=== PATIENT | female | born 1965 | race Caucasian/White ===

== ENCOUNTER 2025-04-05 18:03 | Emergency (ER) | payer OTHER, SELFPAY ==
[2025-04-05 19:07] VITALS: BP 147/86; PULSE 104; RESP 16; TEMP 37.3; O2SAT 99; BMI 22.7
--- NOTE | 2025-04-05 21:22 | ED.GENADULT ---
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 Patient reports that she was at work today at around 330 when she injured her back.. She was kneeling and pulling up on a cord and felt a pop in her back with intense pain. She has been icing her back. No ieat-clz-yuyacwh meds at home. No history of back problems. She does have a history of a C5-6 cervical fusion but no history of low back problems. Per her [facility] medical record she does have a history of coronary disease, Cory's thyroiditis, gastric bypass (Evan-en-Y), breast cancer, anxiety, depression, seasonal affective disorder. Current meds include Cymbalta, iron, fluticasone, Synthroid, lorazepam, Singulair, multivitamin, spironolactone, Zyrtec, calcium/vitamin B, Lipitor. She is not anticoagulated. She was at work this afternoon about 330. She was bending down pulling out some cords from underneath the table and apparently felt a very sudden severe usual for pain felt and heard a ?pop, ?in the midline of her low back. Ever since then she has been having bad pain. The pain is worse when she stands up and better when she lays down. The pain is located in her mid low back and sometimes radiates around to her abdomen. It does not radiate down her legs. No numbness or weakness in her legs or feet. She has been able to urinate normally since the onset of pain. She was not able to take any [id number] pain medications at home because she came straight here to the ER. No history of low back problems. No history of spine Mets. Distant history of breast cancer that is thought to be in remission. No diabetes or immunosuppression. Related Data Home Medications ?Medication ?Instructions ?Recorded ?Confirmed atorvastatin 20 mg tablet 20 mg PO DAILY 04/05/25 04/05/25 bimatoprost 0.03 % drops with 1 drp topical QPM 04/05/25 04/05/25 applicator, eyelash base bupropion HCl 100 mg tablet,12 hr 100 mg PO BID 04/05/25 04/05/25 sustained-release dextroamphetamine-amphetamine 20 1 tab PO BID 04/05/25 04/05/25 mg tablet duloxetine 30 mg capsule,delayed mg PO 04/05/25 release duloxetine 60 mg capsule,delayed mg PO 04/05/25 release methocarbamol 750 mg tablet 750 mg PO Q6H PRN muscle spasm 04/05/25 04/05/25 montelukast 10 mg tablet 10 mg PO DAILY 04/05/25 04/05/25 spironolactone 25 mg tablet 25 mg PO BID 04/05/25 04/05/25 Allergies Allergy/AdvReac Type Severity Reaction Status Date / Time azithromycin Allergy Nausea Verified 04/05/25 19:12 levofloxacin (From Levaquin) Allergy Muscle Pain Verified 04/05/25 19:12 Sulfa (Sulfonamide Allergy rash Verified 04/05/25 19:12 Antibiotics) [facility] Social History Smoking Status: Never smoker Do you use any of these nicotine containing products: None Second hand tobacco smoke exposure: No How often do you have a drink containing alcohol: never How often do you have six or more drinks on one occasion: Never AUDIT-C Alcohol total score: 0 Non-prescribed substance use: denies use service: No Exam Narrative: Exam Narrative: Constitutional: Appears well-developed and well-nourished. Alert. Conversant but quite uncomfortable appearing. HENT: Head: Atraumatic. Nose: Nose normal. Mouth/Throat: Oral mucosa is clear and moist. no trismus. Pharynx normal. Tonsils symmetric. No tonsillar enlargement, erythema, or exudate. Eyes: Conjunctivae normal. EOM normal. Pupils equal, round, and reactive to light. No scleral icterus. Neck: Normal range of motion. Neck supple. No tracheal deviation present. Cardiovascular: Normal rate, regular rhythm. No gallop. No friction rub. No murmur heard. Symmetric radial artery pulses Pulmonary/Chest: Effort normal. No stridor. No respiratory distress. No wheezes. No rales. No rhonchi . No tenderness. Abdominal: Soft. No distension. No mass. No tenderness. No rebound. No guarding. Musculoskeletal: A tender on the lumbar spine from the bottom of the rib cage all the way down to her lower lumbar spine and involving her sacrum. Seems to be most tender in the upper lumbar spine. No definite step-off. No rash. No bruising. Pelvis is stable. RUE: Normal range of motion. No tenderness. No deformity LUE: Normal range of motion. No tenderness. No deformity RLE: Normal range of motion, but somewhat limited because flexing her knees and hips exacerbates her back pain.. No edema. No tenderness. No deformity LLE: Normal range of motion, but limited because flexing her knee and hip exacerbates her back pain.. No edema. No tenderness. No deformity Neurological: Alert and oriented to person, place, and time. Normal strength. CN II-VII intact. No sensory deficit. GCS eye subscore is 4. GCS verbal subscore is 5. GCS motor subscore is 6. Normal coordination Sensory: Normal light touch sensation bilaterally on the anteromedial thigh (L3), medial malleolus (L4), dorsal first web space (L5), lateral malleolus (S1). Strength: 5/5 strength hip flexors (L3) on the right and left 5/5 strength in the quadriceps (L4) on the right and left 5/5 strength in the tibialis anterior 5/5 strength in the EHL (L5) on the right and left 5/5 strength in the gastrocnemius (S1) on the right and left 5/5 strength in the hamstring on the right and left DTRs: symmetric in the patella (2/4) , but when she jerks with her patellar reflex her back pain flares up. Negative straight leg raise bilaterally. Not able to assess gait because of pain. Skin: Skin is warm and dry. No rash noted. No pallor. Normal capillary refill. Psychiatric: Normal mood. Normal affect other than discomfort. Const: Vital Signs, click to edit/add: Vital Signs - 24 hr 04/05/25 19:07 Temperature 99.1 F Pulse Rate [Pulse Oximeter] 104 H Respiratory Rate 16 Blood Pressure [Ri ght Upper Arm] 147/86 H Pulse Oximetry 99 Oxygen Delivery Me thod Room Air Course Vital Signs Vital signs: Initial Vital Signs Temperature 99.1 F 04/05/25 19:07 Temperature Source Temporal Artery Scan 04/05/25 19:07 Pulse Rate 104 H 04/05/25 19:07 Respiratory Rate 16 04/05/25 19:07 Blood Pressure 147/86 H 04/05/25 19:07 Blood Pressure Mean 106 H 04/05/25 19:07 Blood Pressure Position Standing 04/05/25 19:07 Pulse Oximetry 99 04/05/25 19:07 Oxygen Delivery Method Room Air 04/05/25 19:07 Vital Signs Temperature 99.1 F 04/05/25 19:07 Pulse Rate 104 H 04/05/25 19:07 Respiratory Rate 16 04/05/25 19:07 Blood Pressure 147/86 H 04/05/25 19:07 Pulse Oximetry 99 04/05/25 19:07 Oxygen Delivery Method Room Air 04/05/25 19:07 Temperature 99.1 F 04/05/25 19:07 Pulse Rate 104 H 04/05/25 19:07 Respiratory Rate 16 04/05/25 19:07 Blood Pressure 147/86 H 04/05/25 19:07 Pulse Oximetry 99 04/05/25 19:07 Oxygen Delivery Method Room Air 04/05/25 19:07 Medications Administered Medications: Generic Name Dose Route Start Last Admin Trade Name Frekirill PRN Reason Stop Dose Admin Hydromorphone HCl 0.5 mg 04/05/25 21:32 04/05/25 21:56 Hydromorphone 0.5 Mg/0.5 Ml Inj IVP 0.5 mg Q1H PRN Administration Pain Discontinued Medications Generic Name Dose Route Start Last Admin Trade Name Freq PRN Reason Stop Dose Admin Cyclobenzaprine HCl 5 mg 04/06/25 00:01 04/06/25 00:23 Cyclobenzaprine Hcl 10 Mg Tablet PO 04/06/25 00:02 5 mg ONCE ONE Administration Diazepam 2.5 mg 04/05/25 21:32 04/05/25 21:56 Diazepam 5 Mg/Ml Inj IV 04/05/25 21:33 2.5 mg ONCE ONE Administration Ketorolac Tromethamine 15 mg 04/05/25 21:32 04/05/25 21:56 Ketorolac 15 Mg/Ml Inj IVP 04/05/25 21:33 15 mg ONCE ONE Administration Ondansetron HCl 4 mg 04/05/25 21:32 04/05/25 21:56 Ondansetron 2 Mg/Ml Inj IVP 04/05/25 21:33 4 mg ONCE ONE Administration Ondansetron HCl 4 mg 04/06/25 00:01 04/06/25 00:23 Ondansetron Odt 4 Mg Tab PO 04/06/25 00:02 4 mg ONCE ONE Administration Oxycodone HCl 10 mg 04/06/25 00:01 04/06/25 00:23 Oxycodone 5 Mg Tablet PO 04/06/25 00:02 10 mg ONCE ONE Administration Medical Decision Making MDM Narrative Medical decision making narrative: This patient presented with back pain. Broad differential considered. The patient did not sustain any trauma, so overall low likelihood for fracture.. No red flag symptoms to suggest CT and/or MRI is indicated at this point. The patient has not had a fever, saddle/perineal anesthesia, bilateral foot numbness, or bowel or bladder dysfunction. There is no clinical evidence of cauda equina syndrome, discitis, spinal/epidural space hematoma or epidural abscess. The neurological exam is normal and the patient's symptoms seem consistent with a musculoskeletal issues . However given her significant severe debilitating pain, we did feel that some imaging was indicated. MRI is not available here in [place] this evening. Therefore we elected to go ahead with lumbar spine CT. Also pelvis CT case there was some pelvic insufficiency fracture contributing to her low back pain. L-spine CT came back revealing an acute to subacute lumbar 1 compression fracture with 30% loss of vertebral body height. I suspect this is probably the cause for her acute onset of back pain. . Pain has improved with interventions in the emergency department and she has novel able to rest more comfortably in bed but she is still having a lot of pain whenever she tries to get up to ambulate.. She is going to require admission for pain control. Transfer is indicated to a facility with Ortho Spine/Neurosurgery coverage. She will need spine consult to determine whether not this fracture is operative and determine a plan of care and family. Discussed this with the patient and they are in agreement. Here in the ER the patient has received Toradol, 2 doses of Dilaudid, Valium, and 10 mg oxycodone and still having significant pain. She substantially better than a compared to arrival but still not able to get out of bed or ambulate. Discussed with hospitalist from [facility], Dr. Monroy. He accepts the patient in transfer for admission to the hospitalist service to an ortho spine bed. He will arrange consult ink services which arrives Discussed with my overnight partner, Dr. Villegas who graciously agreed to monitor this patient's course in the ER. Discharge Plan Discharge Clinical Impression: Closed compression fracture of L1 vertebra Patient Disposition: Xfer Other Prescriptions: No Action atorvastatin 20 mg tablet 20 mg PO DAILY spironolactone 25 mg tablet 25 mg PO BID bupropion HCl 100 mg tablet sustained-release 12 hr 100 mg PO BID methocarbamol 750 mg tablet 750 mg PO Q6H PRN (Reason: muscle spasm) dextroamphetamine-amphetamine 20 mg tablet 1 tab PO BID montelukast 10 mg tablet 10 mg PO DAILY duloxetine 30 mg capsule,delayed release(DR/EC) PO duloxetine 60 mg capsule,delayed release(DR/EC) PO bimatoprost 0.03 % drops with applicator 1 drp TOPICAL QPM Stand Alone Forms: [facility] Info Instructions
--- NOTE | 2025-04-05 21:32 | CRLHL7_ITS ---
For Patients: As a result of the Cures Act, medical imaging exams and procedure reports are released immediately into your electronic medical record. You may view this report before your referring provider. If you have questions, please contact your health care provider. INDICATION: Right hip pain. TECHNIQUE: CT pelvis without contrast. COMPARISON: CT abdomen and pelvis 11/12/2022. FINDINGS: No acute fracture, dislocation, or suspicious osseous lesion. Mild degenerative changes of the bilateral hips significant joint space narrowing. Degenerative changes at the left greater than right sacroiliac joints. Mild osteopenia. No significant hip joint effusion. No suspicious soft tissue mass or fluid collection. Visualized intrapelvic contents demonstrate no acute abnormality. There are atherosclerotic calcifications. IMPRESSION: No acute abnormality. Please note that all CT scans at this facility use dose modulation, iterative reconstruction, and/or weight-based dosing when appropriate to reduce radiation dose to as low as reasonably achievable. Dictated by Rodolfo Earl MD @ 04/05/2025 10:22:21 PM (Electronically Signed)
--- NOTE | 2025-04-05 21:32 | CRLHL7_ITS ---
For Patients: As a result of the Century Cures Act, medical imaging exams and procedure reports are released immediately into your electronic medical record. You may view this report before your referring provider. If you have questions, please contact your health care provider. INDICATION: Low back pain. TECHNIQUE: CT lumbar spine without contrast. COMPARISON: CT abdomen pelvis 11/12/2022. FINDINGS: Acute to subacute appearing compression fracture deformity of the L1 superior endplate with approximately 30 percent loss of vertebral body height and no significant vertebral body retropulsion. No significant canal stenosis at this level. The remainder of the lumbar vertebral bodies maintain their normal heights with preserved lordosis. Mild multilevel spondylosis is evident. No advanced disc space height loss. Limited evaluation of intra-abdominal/pelvic contents demonstrates no acute abnormality. There are atherosclerotic calcifications. Paraspinal soft tissues are grossly within normal limits. IMPRESSION: Acute to subacute appearing L1 superior endplate compression fracture with approximately 30 percent loss of vertebral body height and no significant vertebral body retropulsion. Please note that all CT scans at this facility use dose modulation, iterative reconstruction, and/or weight-based dosing when appropriate to reduce radiation dose to as low as reasonably achievable. Dictated by Rodolfo Earl MD @ 04/05/2025 10:28:23 PM (Electronically Signed)
[2025-04-05] MEDS: diazePAM 5 MG/ML inj 2.5 MG IV (21:56)
[2025-04-05] MEDS: ONDANSETRON 2 MG/ML inj 4 MG IVP (21:56)
--- OUTSIDE RECORDS SUMMARY | 2025-04-05 22:07 | XMS_ITS | Encounter Summary ---
Author Organization [facility] Address [address] [place] [address]. [place] [address] Care Team Providers Care Doctor Of Chiropractic Name Role Phone Shabana Phelan Christelle HUERTA Unavailable [phone] Raquel Hernandez MD Primary Care Provider Raquel Hernandez MD Unavailable Leia Moreno DO Primary Care Provide r Cb Hernández MD Unavailable Unavail able Cb Hernández MD Unavailable Unavail able Leia Moreno DO Unavailable Toro Arnold MD Unavailable Toro Arnold MD Unavailable [phone] Clarke Gandhi MD Unavailable [phone] Reason for Visit * Reason Onset Date Comments Refill Request 07/19/2022 DULoxetine (CYMB NAE) 30 MG capsule Encounter Details Date Type Department Care Team (Late st Contact Info) Description 07/19/2022 Refill [facility] [address] [place] [address] [place] [address] [place] [address] Refill Request (DULoxetine (CYMBALTA) 30 MG capsule) Social History Tobacco Use Types Packs/Day Years Used Date Smoking Tobacco: Never Smokeless Tobacco: Never Alcohol Use Standard Drinks/Week Comments Yes 0 (1 standard drink = 0.6 oz pur e alcohol) rarely Social Connection and Isolat ion Panel [NHANES] Answer Date Recorded In a typical week, how many times do you talk on the phone with family, friends, or neighbors? Twice a week 05/07/2021 How often do you get togethe r with friends or relatives? More than three times a week 05/07/2021 How often do you attend [facility] or mosque services? More than 4 times per year 05/07/2021 Do you belong to any clubs o r organizations such as zoroastrianism groups, unions, fraternal or athletic groups, or school groups? Yes 05/07/2021 Attends Club or Organization Meetings Not on brandie e 05/07/2021 Are you , , di vorced, , never , or living with a partner? 05/07/2021 AUDIT-C Answer Date Recorded Q1: How often do you have a drink containing alc ohol? Monthly or less 05/07/2021 Q2: How many drinks containi ng alcohol do you have on a typical day when you are drinking? 1 or 2 05/07/2021 Q3: How often do you have si x or more drinks on one occasion? Never 05/07/2021 Overall Financial Resource Strain (CARDIA) Answe r Date Recorded How hard is it for you to pa y for the very basics like food, housing, medical care, and heating? Not hard at all 05/07/2021 PHQ-2 Answer Date Recorded PHQ-2 Score 0 01/02/2022 [facility] - Occupational Stress Questionnaire Answer Date Recorded Do you feel stress - tense, restless, nervous, or anxious, or unable to sleep at night because your mind is troubled all the time - these days? To some extent 05/07/2021 Exercise Vital Sign Answer Date Recorde d On average, how many days pe r week do you engage in moderate to strenuous exercise (like a brisk walk)? 3 days 05/07/2021 On average, how many minutes do you engage in exercise at this level? 40 min 05/07/2021 Hunger Vital Sign Answer Date Recorded Within the past 12 months, y ou worried that your food would run out before you got the money to buy more. Never true 05/07/20 21 Within the past 12 months, t he food you bought just didn't last and you didn't have money to get more. Never true 05/07/2021 PRAPARE - Transportation Answer Date Re corded In the past 12 months, has l ack of transportation kept you from medical appointments or from getting medications? No 04/16 In the past 12 months, has l ack of transportation kept you from meetings, work, or from getting things needed for daily living? No 05/07/2021 Housing Stability Vital Sign Answer Jeb e Recorded In the last 12 months, was t here a time when you were not able to pay the mortgage or rent on time? No 05/07/2021 In the last 12 months, how many places have you lived? 1 05/07/2021 In the last 12 months, was t here a time when you did not have a steady place to sleep or slept in a nursing home (including now)? 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 Juana Villeda RN STOCK AUCTIONEER documented in this encounter Plan of Treatment Upcoming Encounters Date Type Department Care Team (Late st Contact Info) Description 04/21/2025 10:40 AM LIVESTOCK AUCTIONEER Office Visit [facility] [address] [place] [address] Leia Moreno DO [address] [place], [place] [id number] documented as of this encounter Visit Diagnoses Diagnosis MORRO (generalized anxiety disorder) Generalized anxiety disorder documented in this encounter Additional Health Concerns Infection Onset Date Last Indicated 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 02/05/2018 05/10/2024 9:57 AM LIVESTOCK AUCTIONEER Assessment Noted Time PHQ-9 Depression Total Score: 6 12/28/19 22 3:16 PM CDT documented as of this encounter Care Teams Doctor Of Chiropractic Relationship Specialty [place] [address] [place] [address] PCP - General Family Medicine 11/06/20 12/29/22 Leia Moreno DO [address] [facility] [address] [place] [address] PCP - General Internal Medicine 12/30/22 Shabana Phelan NP [facility] [address] [place] [address] Nurse Practitioner Nurse Practitioner Psych/Mental Health 04/10/17 [place] [address] [place] [address] Assigned PCP 11/08/20 03/13/23 Cb Hernández MD Assigned PCP 03/14/23 04/03/23 Cb Hernández MD Assigned PCP 04/11/23 04/17/23 Leia Moreno DO [address] [facility] [address] [place] [address] Assigned PCP 04/25/23 Toro Arnold MD [address] [place] [address] Surgeon Surgery 04/18/24 Toro Arnold MD [address] [place] [address] Assigned Surgical Provider 05/07/24 Clarke Gandhi MD [address] [address] Assigned Musculoskeletal Provider 08/07/24 documented as of this encounter
--- OUTSIDE RECORDS SUMMARY | 2025-04-05 22:08 | XMS_ITS | Encounter Summary ---
Author Organization [facility] Address [address] [place] [address] Care Team Providers Care Rn Or Lvn Name Role Phone TapanShabana Christelle HUERTA Unavailable [phone] Raquel Hernandez MD Primary Care Provider Raquel Hernandez MD Unavailable Leia Moreno DO Primary Care Provide r Cb Hernández MD Unavailable Unavail able Cb Hernández MD Unavailable Unavail able Leia Moreno DO Unavailable [phone] Toro Arnold MD Unavailable [phone] Toro Arnold MD Unavailable [phone] Clarke Gandhi MD Unavailable [phone] Encounter Details Date Type Department Care Team (Late st Contact Info) Description 06/25/2022 [facility] Medical Advice [facility] [id number] [place] [id number] Imelda Mancini MA Social History Tobacco Use Types Packs/Day Years [...] week 05/07/2021 How often do you attend chur or orthodox services? More than 4 times per year 05/07/2021 Do you belong to any clubs o r organizations such as caodaism groups, unions, fraternal or athletic groups, or [...] Answer Date Recorded PHQ-2 Score 0 01/02/2022 [facility] - Occupational Stress Questionnaire Answer Date Recorded [...] place to sleep or slept in a senior care (including now)? 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 [address] [facility] [address] [place] [phone] Leia Moreno DO [address] [facility] [address] [place] [address] documented as of this encounter Visit Diagnoses Not on filedocumented in this encounter Additional Health Concerns Infection Onset Date Last Indicated 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 02/05/2018 05/10/2024 9:57 AM PACKING ROOM WORKER Assessment Noted Time PHQ-9 Depression Total Score: 6 12/28/19 22 3:16 PM CDT documented as of this encounter Care Teams Rn Or Lvn Relationship Specialty [place] [address] [place] [address] PCP - General Family Medicine 11/06/20 12/29/22 Leia Moreno DO [address] [place] [address] PCP - General Internal Medicine 12/30/22 Shabana Phelan NP [facility] [address] [place] [address] Nurse Practitioner Nurse Practitioner Psych/Mental Health 04/10/17 [place] [address] [place] [address] Assigned PCP 11/08/20 03/13/23 Cb Hernández MD Assigned PCP 03/14/23 04/03/23 Cb Hernández MD Assigned PCP 04/11/23 04/17/23 Leia Moreno DO [address] [place] [address] Assigned PCP 04/25/23 Toro Arnold MD [address] [place] [address] Surgeon Surgery 04/18/24 Toro Arnold MD [address] [place] [address] Assigned Surgical Provider 05/07/24 Clarke Gandhi MD [facility] [place] [address] Assigned Musculoskeletal Provider 08/07/24 documented as of this encounter
--- OUTSIDE RECORDS SUMMARY | 2025-04-05 22:08 | XMS_ITS | Encounter Summary ---
Author Organization [place] Address [address] [place] [address] Care Team Providers Care Wrapper Opener Name Role Phone Samm Ramos MD Primary Care Provider Sweetie Burnett MD Primary Care Provider TapanShabana casanova NP Unavailable [phone] Sweetie Burnett MD Unavailable [phone] Sweetie Burnett MD Unavailable [phone] Nikkie Jacques [facility] Unavailable [phone] Nery Matos [facility] Unavailable Stewart Alfaro MD Unavailable Miranda Liao MD Unavailable Unavailable Raquel Hernandez MD Primary Care Provider Vlad Walsh MD Unavailable Raquel Hernandez MD Unavailable David Chu PA-C Unavailable [phone] Leia Moreno DO Primary Care Provide r Cb Hernández MD Unavailable Unavail able Cb Hernández MD Unavailable Unavail able Leia Moreno DO Unavailable Toro Arnold MD Unavailable Toro Arnold MD Unavailable [phone] Clarke Gandhi MD Unavailable [phone] Encounter Details Date Type Department Care Team (Late st Contact Info) Description 07/22/2013 MyC Medical Advice [facility] [address] [place] [phone] Samm Ramos MD XXX RESIGNED XXX [address] [place] [address] Social History Tobacco Use Types Packs/Day Years Used Date Smoking Tobacco: Never Smokeless Tobacco: Never Alcohol Use Standard Drinks/Week Comments Yes 0 (1 standard drink = 0.6 oz pur e alcohol) rare Comments No Sex and Gender Information Value Date Recorded Sex Assigned at Female 06/28/2018 5:01 AM DIRECTOR OF MECHANICAL ENGINEERING Legal Sex Female 3:40 AM DIRECTOR OF MECHANICAL ENGINEERING Gender Identity Female 05/25/2018 3:53 PM DIRECTOR OF MECHANICAL ENGINEERING Sexual Orientation Straight 04/24/2021 4: 48 PM DIRECTOR OF MECHANICAL ENGINEERING 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 Pt would like to start cholesterol reducing medication instead of retesting, due to strong family history. CTOR OF MECHANICAL ENGINEERING documented in this encounter Plan of Treatment Upcoming Encounters Date Type Department Care Team (Late st Contact Info) Description 04/21/2025 10:40 AM DIRECTOR OF MECHANICAL ENGINEERING Office Visit [facility] [address] [place] [address] Leia Moreno DO [address] [place] [address] documented as of this encounter Visit Diagnoses Not on filedocumented in this encounter Additional Health Concerns Infection Onset Date Last Indicated 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 02/05/2018 05/10/2024 9:57 AM DIRECTOR OF MECHANICAL ENGINEERING Rule Out COVID-19 10/30/2019 10/30/2019 10/31/2019 1:08 PM CDT documented as of this encounter Care Teams Wrapper Opener Relationship Specialty Start Date End Date Samm Ramos MD XXX RESIGNED XXX [address] [id number] PCP - General 07/31/01 07/02/16 Sweetie Burnett MD XXX RESIGNED XXX [address] [phone] PCP - General Internal Medicine 07/03/16 11/05/20 Sweetie Burnett MD [address] [place] [address] 677163 PCP - Assigned PCP 02/15/17 08/17/18 [place] [address] [place] [address] PCP - General Family Medicine 11/06/20 12/29/22 Leia Moreno DO [address] [address] PCP - General Internal Medicine 12/30/22 Shabana Phelan NP [facility] [address] [place] [address] Nurse Practitioner Nurse Practitioner Psych/Mental Health 04/10/17 Sweetie Burnett MD [address] [place] [address] [id number] Assigned PCP 02/15/17 09/08/20 Nikkie Jacques, [facility] [address] [facility] [address] [place], [place] [address] Pharmacist Pharmacist 08/18/19 10/24/20 Nery Matos [facility] [address] [place], [place] [address] Pharmacist Pharmacist 02/13/20 10/24/20 [place] [id number] [place] [address] [id number] Assigned Musculoskeletal Provider 04/06/20 12/25/20 Miranda Liao MD INACTIVE IN [place] 05/14/2024 Assigned PCP 09/09/20 10/13/20 Vlad Walsh MD [address] [place] [address] [id number] Assigned PCP 10/14/20 11/07/20 [place] [address] [place] [address] Assigned PCP 11/08/20 03/13/23 David Chu PAAceC [id number] [place] [address] [id number] Assigned Musculoskeletal Provider 12/28/20 05/11/21 Cb Hernández MD Assigned PCP 03/14/23 04/03/23 Cb Hernández MD Assigned PCP 04/11/23 04/17/23 Leia Moreno DO [address] [place] [address] Assigned PCP 04/25/23 Toro Arnold MD [address] [place] [address] Surgeon Surgery 04/18/24 Toro Arnold MD [address] [place] [address] Assigned Surgical Provider 05/07/24 Clarke Gandhi MD [address] [place] [address] Assigned Musculoskeletal Provider 08/07/24 documented as of this encounter
--- OUTSIDE RECORDS SUMMARY | 2025-04-05 22:08 | XMS_ITS | Encounter Summary ---
Author Organization [place] Address [address] [place] [address] Care Team Providers Care Casting Operator Name Role Phone Sweetie Burnett MD Primary Care Provider [phone] [facility] Unavailable [phone] Sweetie Burnett MD Unavailable [phone] iNkkie Jacques [facility] Unavailable [phone] Nery Matos [facility] Unavailable Stewart Alfaro MD Unavailable [phone] Miranda Liao MD Unavailable Unavailable Raquel Hernandez MD Primary Care Provider [phone] Vlad Walsh MD Unavailable [phone] Raquel Hernandez MD Unavailable David Chu PA-C Unavailable Leia Moreno DO Primary Care Provide r Cb Hernández MD Unavailable Unavail able Cb Hernández MD Unavailable Unavail able Leia Moreno DO Unavailable Toro Arnold MD Unavailable [phone] Toro Arnold MD Unavailable [phone] Clarke Gandhi MD Unavailable [phone] Encounter Details Date Type Department Care Team (Late st Contact Info) Description 07/14/2019 MyC Medical Advice [address] [place] [address] Geetha Nuñez RN Social History Tobacco Use Types Packs/Day Years Used Date Smoking Tobacco: Never Smokeless Tobacco: Never Alcohol Use Standard Drinks/Week Comments Yes 0 (1 standard drink = 0.6 oz pur e alcohol) rarely PHQ-2 Answer Date Recorded PHQ-2 Score 0 06/22/2018 Comments No Sex and Gender Information Value Date Recorded Sex Assigned at Female 06/28/2018 5:01 AM CLERK ENTRY LEVEL Legal Sex Female 3:40 AM CLERK ENTRY LEVEL Gender Identity Female 05/25/2018 3:53 PM CLERK ENTRY LEVEL Sexual Orientation Straight 04/24/2021 4: 48 PM CLERK ENTRY LEVEL 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 200 [place] [address] documented as of this encounter Visit Diagnoses Not on filedocumented in this encounter Additional Health Concerns Infection Onset Date Last Indicated 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 02/05/2018 05/10/2024 9:57 AM CLERK ENTRY LEVEL Rule Out COVID-19 10/30/2019 10/30/2019 10/31/2019 1:08 PM CDT Assessment Noted Time PHQ-9 Depression Total Score: 5 01/18/20 19 11:18 AM CDT documented as of this encounter Care Teams Casting Operator Relationship Specialty Start Date End Date Sweetie Burnett MD PCP - General Internal Medicine 07/03/16 11/05/20 [place] [address] [place] [address] PCP - General Family Medicine 11/06/20 12/29/22 Leia Moreno DO [address] [place] [address] PCP - General Internal Medicine 12/30/22 Shabana Phelan, HIGH SCHOOL LIBRARIAN [facility] [address] [place] [address] Nurse Practitioner Nurse Practitioner Psych/Mental Health 04/10/17 Sweetie Burnett MD [address], [place] [address] Assigned PCP 02/15/17 09/08/20 Nikkie Jacques, [facility] [address] [facility] 812 [place], [place] [address] Pharmacist Pharmacist 08/18/19 10/24/20 Nery Matos [facility] [address] [place] [address] Pharmacist Pharmacist 02/13/20 10/24/20 [place] [address] [facility] [address] [place] [address] Assigned Musculoskeletal Provider 04/06/20 12/25/20 Miranda Liao MD INACTIVE IN [place] 05/14/2024 Assigned PCP 09/09/20 10/13/20 Vlad Walsh MD [address] [place], [place] [address] Assigned PCP 10/14/20 11/07/20 [place] [address] [place] [address] Assigned PCP 11/08/20 03/13/23 David Chu, PA-C [address] [facility] [address] [place] [address] Assigned Musculoskeletal Provider 12/28/20 05/11/21 Cb Hernández MD Assigned PCP 03/14/23 04/03/23 Cb Hernández MD Assigned PCP 04/11/23 04/17/23 Leia Moreno DO [address] [place] [address] Assigned PCP 04/25/23 Toro Arnold MD [address] [place] [address] Surgeon Surgery 04/18/24 Toro Arnold MD [address] [place] [address] Assigned Surgical Provider 05/07/24 Clarke Gandhi MD [address] [place] [address] Assigned Musculoskeletal Provider 08/07/24 documented as of this encounter
--- OUTSIDE RECORDS SUMMARY | 2025-04-05 22:08 | XMS_ITS | Encounter Summary ---
Author Organization [place] Address [address] [place] [address] Care Team Providers Care Patient Escort Name Role Phone Sweetie Burnett MD Primary Care Provider [phone] [facility] Un[facility] Sweetie Burnett MD Unavailable [phone] Nikkie Jacques [facility] Unavailable Nery Matos [facility] Unavailable Stewart Alfaro MD Unavailable Miranda Liao MD Unavailable Unavailable Raquel Hernandez MD Primary Care Provider Vlad Walsh MD Unavailable Raquel Hernandez MD Unavailable David Chu PA-C Unavailable Leia Moreno DO Primary Care Provide r Cb Hernández MD Unavailable Unavail able Cb Hernández MD Unavailable Unavail able Leia Moreno DO Unavailable Toro Arnold MD Unavailable [phone] Toro Arnold MD Unavailable [phone] Clarke Gandhi MD Unavailable [phone] Encounter Details Date Type Department Care Team (Late st Contact Info) Description 09/23/2018 MyC Medical Advice [address] [place] [address] Nichole Mccall RN Social History Tobacco Use Types Packs/Day Years Used Date Smoking Tobacco: Never Smokeless Tobacco: Never Alcohol Use Standard Drinks/Week Comments Yes 0 (1 standard drink = 0.6 oz pur e alcohol) rarely PHQ-2 Answer Date Recorded PHQ-2 Score 0 06/22/2018 Comments No Sex and Gender Information Value Date Recorded Sex Assigned at Female 06/28/2018 5:01 AM COBOL MAINFRAME DEVELOPER Legal Sex Female 3:40 AM COBOL MAINFRAME DEVELOPER Gender Identity Female 05/25/2018 3:53 PM COBOL MAINFRAME DEVELOPER Sexual Orientation Straight 04/24/2021 4: 48 PM COBOL MAINFRAME DEVELOPER 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 Not on file documented as of this encounter Plan of Treatment Upcoming Encounters Date Type Department Care Team (Late Contact Info) Description 04/21/2025 10:40 AM COBOL MAINFRAME DEVELOPER Office Visit [facility] [address] [facility] [address] [place] [address] Leia Moreno [place] 0[address]360 [facility] [address] [place] [address] documented as of this encounter Visit Diagnoses Not on filedocumented in this encounter Additional Health Concerns Infection Onset Date Last Indicated 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 02/05/2018 05/10/2024 9:57 AM COBOL MAINFRAME DEVELOPER Rule Out COVID-19 10/30/2019 10/30/2019 10/31/2019 1:08 PM CDT Assessment Noted Time PHQ-9 Depression Total Score: 4 07/09/19 19 1:12 PM COBOL MAINFRAME DEVELOPER documented as of this encounter Care Teams Patient Escort Relationship Specialty Start Date End Date Sweetie Burnett MD PCP - General Internal Medicine 07/03/16 11/05/20 [place] [address] [place] [address] PCP - General Family Medicine 11/06/20 12/29/22 Leia Moreno DO [address] [place] [address] PCP - General Internal Medicine 12/30/22 Shabana Phelan, CARPET FINISHING SUPERVISOR [facility] [address] [place] [address] Nurse Practitioner Nurse Practitioner Psych/Mental Health 04/10/17 Sweetie Burnett MD [address], [place] [address] Assigned PCP 02/15/17 09/08/20 Nikkie Jacques, [facility] [address] [facility] [address] [place] [address] Pharmacist Pharmacist 08/18/19 10/24/20 Nery Matos [facility] [address] [place] [address] Pharmacist Pharmacist 02/13/20 10/24/20 [place] [address] [facility] [place] [address] Assigned Musculoskeletal Provider 04/06/20 12/25/20 Miranda Liao MD INACTIVE IN [place] 05/14/2024 Assigned PCP 09/09/20 10/13/20 Vlad Walsh MD [address] [place], [place] [address] Assigned PCP 10/14/20 11/07/20 [place] [address] [place] [address] Assigned PCP 11/08/20 03/13/23 David Chu, PA-C [address] [facility] [address] [place] [address] Assigned Musculoskeletal Provider 12/28/20 05/11/21 Cb Hernández MD Assigned PCP 03/14/23 04/03/23 Cb Hernández MD Assigned PCP 04/11/23 04/17/23 Leia Moreno DO [address] [place] [address] Assigned PCP 04/25/23 Toro Arnold MD [address] [place] [address] Surgeon Surgery 04/18/24 Toro Arnold MD [address] [place] [address] Assigned Surgical Provider 05/07/24 Clarke Gandhi MD [address] [place] [address] Assigned Musculoskeletal Provider 08/07/24 documented as of this encounter
--- OUTSIDE RECORDS SUMMARY | 2025-04-05 22:08 | XMS_ITS | Encounter Summary ---
Author Organization [place] Address [address] [place] [address]. [place] [address] Care Team Providers Care Coverstitch Elastic Attacher Name Role Phone Shabana Phelan DEANNA Unavailable [phone] Raquel Hernandez MD Primary Care Provider Raquel Hernandez MD Unavailable Leia Moreno DO Primary Care Provide r Cb Hernández MD Unavailable Unavail able Cb Hernández MD Unavailable Unavail able Leia Moreno DO Unavailable Toro Arnold MD Unavailable Toro Arnold MD Unavailable Clarke Gandhi MD Unavailable [phone] Reason for Visit * Reason Onset Date Comments Refill Request 07/20/2022 atorvastatin (LI PITOR) 20 MG tabletmontelukast (SINGULAIR) 10 MG tablet Encounter Details Date Type Department Care Team (Late st Contact Info) Description 07/20/2022 Refill [facility] [address] [place] [address] [place] [address] [place] [address] Refill Request (atorvastatin (LIPITOR) 20 MG tablet/montelukast (SINGULAIR) 10 MG tablet) Social History Tobacco Use Types Packs/Day Years [...] How often do you attend chur or amish services? More than 4 times per year 05/07/2021 Do you belong to any clubs o r organizations such as muslim groups, unions, fraternal or athletic groups, or [...] Answer Date Recorded PHQ-2 Score 0 01/02/2022 [facility] - Occupational Stress Questionnaire Answer Date [...] place to sleep or slept in a prison (including now)? 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 Team, please call and schedule pt for yearly OV with provider. Juana Villeda RN [employer] documented in this encounter Plan of Treatment Upcoming Encounters Date Type Department Care Team (Late st Contact Info) Description 04/21/2025 10:40 AM ARTIST SCIENTIFIC Office Visit [facility] [address] [place] [phone] Leia Moreno DO [address] [place] [address] documented as of this encounter Visit Diagnoses Diagnosis Hyperlipidemia LDL goal <130 Other and unspecified hyperlipidemia Seasonal allergic rhinitis, unspecified trigger documented in this encounter Additional Health Concerns Infection Onset Date Last Indicated 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 02/05/2018 05/10/2024 9:57 AM ARTIST SCIENTIFIC Assessment Noted Time PHQ-9 Depression Total Score: 6 12/28/19 22 3:16 PM CDT documented as of this encounter Care Teams Coverstitch Elastic Attacher Relationship Specialty Start [place] [address] [place] [address] PCP - General Family Medicine 11/06/20 12/29/22 Leia Moreno DO [address] [place] [address] PCP - General Internal Medicine 12/30/22 Shabana Phelan NP [place] [address] [place] [address] Nurse Practitioner Nurse Practitioner Psych/Mental Health 04/10/17 [place] [address] [place] [address] Assigned PCP 11/08/20 03/13/23 Cb Hernández MD Assigned PCP 03/14/23 04/03/23 Cb Hernández MD Assigned PCP 04/11/23 04/17/23 Leia Moreno DO [address] [place] [address] Assigned PCP 04/25/23 Toro Arnold MD [address] [place] [address] Surgeon Surgery 04/18/24 Toro Arnold MD [address] [place] [address] Assigned Surgical Provider 05/07/24 Clarke Gandhi MD [address] [place] [address] Assigned Musculoskeletal Provider 08/07/24 documented as of this encounter
--- OUTSIDE RECORDS SUMMARY | 2025-04-05 22:08 | XMS_ITS | Encounter Summary ---
Author Organization [place] Address [address] [place] [address]. [place] [address] Care Team Providers Care Online Communications Specialist Name Role Phone Shabana Phelan DEANNA Unavailable [phone] Raquel Hernandez MD Primary Care Provider [phone] Raquel Hernandez MD Unavailable Leia Moreno DO Primary Care Provide r Cb Hernández MD Unavailable Unavail able Cb Hernández MD Unavailable Unavail able Leia Moreno DO Unavailable Toro Arnold MD Unavailable Toro Arnold MD Unavailable Clarke Gandhi MD Unavailable [phone] Reason for Visit * Reason Onset Date Comments Refill Request 04/21/2022 DULoxetine (CYMBALTA) 30 MG capsule 04/21/2022 Encounter Details Date Type Department Care Team (Late st Contact Info) Description 04/21/2022 [facility] [address] [place] [address] [place] [address] [place] [address] Refill Request; DULoxetine (CYMBALTA) 30 MG capsule Social History Tobacco Use Types Packs/Day Years [...] week 05/07/2021 How often do you attend [facility] or nondenominational services? More than 4 times per year 05/07/2021 Do you belong to any clubs o r organizations such as bahai groups, unions, fraternal or athletic groups, or [...] Answer Date Recorded PHQ-2 Score 0 01/02/2022 [facility]ms [facility] - Occupational Stress Questionnaire Answer Date [...] place to sleep or slept in a intermediate (including now)? 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 Tenisha Devi RN TROENCEPHALOGRAM TECHNOLOGIST documented in this encounter Plan of Treatment Upcoming Encounters Date Type Department Care Team (Late st Contact Info) Description 04/21/2025 10:40 AM ELECTROENCEPHALOGRAM TECHNOLOGIST Office Visit [facility] [address] [facility] [facility] [address] [place] [phone] Leia Moreno, DO [address] [facility] [address] [place], [place] [address] documented as of this encounter Visit Diagnoses Diagnosis Anxiety state Anxiety state, unspecified documented in this encounter Additional Health Concerns Infection Onset Date Last Indicated 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 02/05/2018 05/10/2024 9:57 AM ELECTROENCEPHALOGRAM TECHNOLOGIST Assessment Noted Time PHQ-9 Depression Total Score: 6 12/28/19 22 3:16 PM CDT documented as of this encounter Care Teams Online Communications Specialist Relationship Specialty Start [place] [address] [place] [address] PCP - General Family Medicine 11/06/20 12/29/22 Leia Moreno DO [address] [facility] [address] [place] [address] PCP - General Internal Medicine 12/30/22 Shabana Phelan NP [facility] [address] [place] [address] Nurse Practitioner Nurse Practitioner Psych/Mental Health 04/10/17 [place] [address] [place] [address] Assigned PCP 11/08/20 03/13/23 Cb Hernández MD Assigned PCP 03/14/23 04/03/23 Cb Hernández MD Assigned PCP 04/11/23 04/17/23 Leia Moreno DO [address] [facility] 200 [place] [address] Assigned PCP 04/25/23 Toro Arnold MD [address] [place] [address] Surgeon Surgery 04/18/24 Toro Arnold MD [address] [place] [address] Assigned Surgical Provider 05/07/24 Clarke Gandhi MD [facility] [place] [id number] [place] [address] Assigned Musculoskeletal Provider 08/07/24 documented as of this encounter
--- OUTSIDE RECORDS SUMMARY | 2025-04-05 22:08 | XMS_ITS | Encounter Summary ---
Author Organization [place] Address [address] [place] [address] Care Team Providers Care Suction Dredge Dumping Supervisor Name Role Phone TapanShabana Christelle HUERTA Unavailable [phone] Raquel Hernandez MD Primary Care Provider Raquel Hernandez MD Unavailable Leia Moreno DO Primary Care Provide r Cb Hernández MD Unavailable Unavail able Cb Hernández MD Unavailable Unavail able Leia Moreno DO Unavailable Toro Arnold MD Unavailable Toro Arnold MD Unavailable [phone] Clarke Gandhi MD Unavailable [phone] Encounter Details Date Type Department Care Team (Late st Contact Info) Description 07/21/2022 [facility] [id number] [place] [phone] Nery Ma Social History Tobacco Use Types Packs/Day Years [...] 05/07/2021 How often do you attend chur ch or zoroastrianism services? More than 4 times per year 05/07/2021 Do you belong to any clubs o r organizations such as scientologist groups, unions, fraternal or athletic groups, or [...] Answer Date Recorded PHQ-2 Score 0 01/02/2022 [facility] - Occupational Stress Questionnaire Answer Date Recorded [...] place to sleep or slept in a skilled nursing (including now)? 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 Not on file documented as of this encounter Plan of Treatment Upcoming Encounters Date Type Department Care Team (Late st Contact Info) Description 04/21/2025 10:40 AM DIESEL ENGINE ERECTOR Office Visit [facility] [address] [place] [phone] Leia Moreno DO [address] [place] [address] documented as of this encounter Visit Diagnoses Not on filedocumented in this encounter Additional Health Concerns Infection Onset Date Last Indicated 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 02/05/2018 05/10/2024 9:57 AM DIESEL ENGINE ERECTOR Assessment Noted Time PHQ-9 Depression Total Score: 6 12/28/19 22 3:16 PM CDT documented as of this encounter Care Teams Suction Dredge Dumping Supervisor Relationship Specialty [place] [address] [place] [address] PCP - General Family Medicine 11/06/20 12/29/22 Leia Moreno DO [address] [place] [address] PCP - General Internal Medicine 12/30/22 Shabana Phelan NP [facility] [address] [place] [address] Nurse Practitioner Nurse Practitioner Psych/Mental Health 04/10/17 [place] [address] [place] [address] Assigned PCP 11/08/20 03/13/23 Cb Hernández MD Assigned PCP 03/14/23 04/03/23 Cb Hernández MD Assigned PCP 04/11/23 04/17/23 Leia Moreno DO [address] [place] [address] Assigned PCP 04/25/23 Toro Arnold MD [address] [place] [address] Surgeon Surgery 04/18/24 Toro Arnold MD [address] [place] [address] Assigned Surgical Provider 05/07/24 Clarke Gandhi MD [address] [place] [address] Assigned Musculoskeletal Provider 08/07/24 documented as of this encounter
--- OUTSIDE RECORDS SUMMARY | 2025-04-05 22:08 | XMS_ITS | Encounter Summary ---
Author Organization [place] Address [address] [place] [address] Care Team Providers Care Cad Design Engineer Name Role Phone Samm Ramos MD Primary Care Provider Sweetie Burnett MD Primary Care Provider TapanShabana casanova NP Unavailable [phone] Sweetie Burnett MD Unavailable [phone] Sweetie Burnett MD Unavailable [phone] Nikkie Jacques [facility] Unavailable [phone] Nery Matos [facility] Unavailable Stewart Alfaro MD Unavailable [phone] Miranda Liao MD Unavailable Unavailable Raquel Hernandez MD Primary Care Provider [phone] Vlad Walsh MD Unavailable Raquel Hernandez MD Unavailable David Chu PA-C Unavailable Leia Moreno DO Primary Care Provide r Cb Hernández MD Unavailable Unavail able Cb Hernández MD Unavailable Unavail able Leia Moreno DO Unavailable [phone] Toro Arnold MD Unavailable Toro Arnold MD Unavailable [phone] Clarke Gandhi MD Unavailable [phone] Encounter Details Date Type Department Care Team (Late st Contact Info) Description 12/20/2001 [facility] [address] [place] [address] Samm Ramos MD XXX RESIGNED XXX [address] [facility] [address] [place] [phone] Social History Tobacco Use Types Packs/Day Years Used Date Smoking Tobacco: Never Assessed Comments No Sex and Gender Information Value Date Recorded Sex Assigned at Female 06/28/2018 5:01 AM COLD MEAT CHEF Legal Sex Female 3:40 AM COLD MEAT CHEF Gender Identity Female 05/25/2018 3:53 PM COLD MEAT CHEF Sexual Orientation Straight 04/24/2021 4: 48 PM COLD MEAT CHEF documented as of this encounter Plan of Treatment Upcoming Encounters Date Type Department Care Team (Late st Contact Info) Description 04/21/2025 10:40 AM COLD MEAT CHEF Office Visit [facility] [address] [facility] [place] [phone] Leia Moreno DO [address] [facility] [address] [place] [address] documented as of this encounter Visit Diagnoses Not on filedocumented in this encounter Additional Health Concerns Infection Onset Date Last Indicated 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 02/05/2018 05/10/2024 9:57 AM COLD MEAT CHEF Rule Out COVID-19 10/30/2019 10/30/2019 10/31/2019 1:08 PM CDT documented as of this encounter Care Teams Cad Design Engineer Relationship Specialty Start Date End Date Samm Ramos MD XXX RESIGNED XXX [address] [facility] [address] [place] [phone] PCP - General 07/31/01 07/02/16 Sweetie Burnett MD XXX RESIGNED XXX [address] [facility] [address] [place] [address] PCP - General Internal Medicine 07/03/16 11/05/20 Sweetie Burnett MD [address] [place] [address] PCP - Assigned PCP 02/15/17 08/17/18 [place] [address] [place] [address] PCP - General Family Medicine 11/06/20 12/29/22 Leia Moreno DO [address] [address] PCP - General Internal Medicine 12/30/22 Shabana Phelan, [employer] [facility] [address] [place], [place] [address] Nurse Practitioner Nurse Practitioner Psych/Mental Health 04/10/17 Sweetie Burnett MD [address] [place] [address] Assigned PCP 02/15/17 09/08/20 Nikkie Jacques, [facility] [address] [place] [address] [address] [place] [address] Pharmacist Pharmacist 08/18/19 10/24/20 Nery Matos [facility] [address] [place] [address] Pharmacist Pharmacist 02/13/20 10/24/20 [place] [address] [facility] [address] [place] [address] Assigned Musculoskeletal Provider 04/06/20 12/25/20 Miranda Liao MD [facility] [place] 05/14/2024 Assigned PCP 09/09/20 10/13/20 Vlad Walsh MD [address] [place] [address] Assigned PCP 10/14/20 11/07/20 [place] [address] [place] [address] Assigned PCP 11/08/20 03/13/23 David Chu, PA-C [address] [facility] [address] [place] [address] Assigned Musculoskeletal Provider 12/28/20 05/11/21 Cb Hernández MD Assigned PCP 03/14/23 04/03/23 Cb Hernández MD Assigned PCP 04/11/23 04/17/23 Leia Moreno DO [address] [facility] 200 [place] [address] Assigned PCP 04/25/23 Toro Arnold MD [address] [place] [address] Surgeon Surgery 04/18/24 Toro Arnold MD [address] [place] [address] Assigned Surgical Provider 05/07/24 Clarke Gandhi MD [address] [facility] [address] [place] [address] Assigned Musculoskeletal Provider 08/07/24 documented as of this encounter
--- OUTSIDE RECORDS SUMMARY | 2025-04-05 22:08 | XMS_ITS | Encounter Summary ---
Author Organization [place] Address [address] [place] [address] Care Team Providers Care Writer Editor Name Role Phone TapanShabana Christelle HUERTA Unavailable [phone] Raquel Hernandez MD Primary Care Provider Raquel Hernandez MD Unavailable Leia Moreno DO Primary Care Provide r Cb Hernández MD Unavailable Unavail able Cb Hernández MD Unavailable Unavail able Leia Moreno DO Unavailable Toro Arnold MD Unavailable [phone] Toro Arnold MD Unavailable Clarke Gandhi MD Unavailable [phone] Encounter Details Date Type Department Care Team (Late st Contact Info) Description 07/18/2022 [facility] [place] Medical Advice [facility] [address] [place] [phone] Nery Ma Social History Tobacco Use [...] often do you attend chur ch or congregational services? More than 4 times per year 05/07/2021 Do you belong to any clubs o r organizations such as sabianism groups, unions, fraternal or athletic groups, or [...] Answer Date Recorded PHQ-2 Score 0 01/02/2022 [facility] - Occupational Stress Questionnaire Answer Date Recorded [...] place to sleep or slept in a assisted (including now)? 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 on file Not on file documented as of this encounter Plan of Treatment Upcoming Encounters Date Type Department Care Team (Late st Contact Info) Description 04/21/2025 10:40 AM BUILDING MAINTENANCE REPAIRER Office Visit [facility] [address] [facility] [address] [place] [phone] Leia Moreno DO [address] [place] [address] documented as of this encounter Visit Diagnoses Not on filedocumented in this encounter Additional Health Concerns Infection Onset Date Last Indicated 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 02/05/2018 05/10/2024 9:57 AM BUILDING MAINTENANCE REPAIRER Assessment Noted Time PHQ-9 Depression Total Score: 6 12/28/19 22 3:16 PM CDT documented as of this encounter Care Teams Writer Editor Relationship Specialty [place] [address] [place] [address] PCP - General Family Medicine 11/06/20 12/29/22 Leia Moreno DO [address] [place] [address] PCP - General Internal Medicine 12/30/22 Shabana Phelan NP [facility] [address] [place] [address] Nurse Practitioner Nurse Practitioner Psych/Mental Health 04/10/17 [place] [address] [place] [address] Assigned PCP 11/08/20 03/13/23 Cb Hernández MD Assigned PCP 03/14/23 04/03/23 Cb Hernández MD Assigned PCP 04/11/23 04/17/23 Leia Moreno DO [address] [place] [address] Assigned PCP 04/25/23 Toro Arnold MD [address] [place] [address] Surgeon Surgery 04/18/24 Toro Arnold MD [address] [place] [address] Assigned Surgical Provider 05/07/24 Clarke Gandhi MD [address] [place] [address] Assigned Musculoskeletal Provider 08/07/24 documented as of this encounter
--- OUTSIDE RECORDS SUMMARY | 2025-04-05 22:08 | XMS_ITS | Encounter Summary ---
Author Organization [place] Address [address] [place] [address] Care Team Providers Care Biomechanical Engineer Name Role Phone Sweetie Burnett MD Primary Care Provider [phone] TapanShabana casanova NP Unavailable Sweetie Burnett MD Unavailable [phone] Sweetie Burnett MD Unavailable [phone] Nikkie Jacques [facility] Unavailable [phone] Nery Matos [facility] Unavailable [phone] Stewart Alfaro MD Unavailable [phone] Miranda Liao MD Unavailable Unavailable Raquel Hernandez MD Primary Care Provider Vlad Walsh MD Unavailable [phone] Raquel Hernandez MD Unavailable David Chu PA-C Unavailable Leia Moreno DO Primary Care Provide r Cb Hernández MD Unavailable Unavail able Cb Hernández MD Unavailable Unavail able Leia Moreno DO Unavailable Toro Arnold MD Unavailable [phone] Toro Arnold MD Unavailable [phone] Clarke Gandhi MD Unavailable [phone] Encounter Details Date Type Department Care Team (Late st Contact Info) Description 06/22/2018 [facility]ice [address] [place] [address] Nichole Mccall, STEPHON Social History Tobacco Use Types Packs/Day Years Used Date Smoking Tobacco: Never Smokeless Tobacco: Never Alcohol Use Standard Drinks/Week Comments Yes 0 (1 standard drink = 0.6 oz pur e alcohol) rarely PHQ-2 Answer Date Recorded PHQ-2 Score 0 06/22/2018 Comments No Sex and Gender Information Value Date Recorded Sex Assigned at Female 06/28/2018 5:01 AM RESEARCH GEOLOGIST Legal Sex Female 3:40 AM RESEARCH GEOLOGIST Gender Identity Female 05/25/2018 3:53 PM RESEARCH GEOLOGIST Sexual Orientation Straight 04/24/2021 4: 48 PM RESEARCH GEOLOGIST 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 Not on file documented as of this encounter Plan of Treatment Upcoming Encounters Date Type Department Care Team (Late st Contact Info) Description 04/21/2025 10:40 AM RESEARCH GEOLOGIST Office Visit [facility] [address] [facility] [address] [place] [address] Leia Moreno DO [address] [facility] [address] [place] [address] documented as of this encounter Visit Diagnoses Not on filedocumented in this encounter Additional Health Concerns Infection Onset Date Last Indicated 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 02/05/2018 05/10/2024 9:57 AM RESEARCH GEOLOGIST Rule Out COVID-19 10/30/2019 10/30/2019 10/31/2019 1:08 PM CDT Assessment Noted Time PHQ-9 Depression Total Score: 3 12/24/19 18 7:11 AM CDT documented as of this encounter Care Teams Biomechanical Engineer Relationship Specialty Start Date End Date Sweetie Burnett MD PCP - General Internal Medicine 07/03/16 11/05/20 Sweetie Burnett MD [address] [place] [address] PCP - Assigned PCP 02/15/17 08/17/18 [place] [address] [place] [address] PCP - General Family Medicine 11/06/20 12/29/22 Leia Moreno DO [address] [facility] [address] [place], [place] [id number] PCP - General Internal Medicine 12/30/22 Shabana Phelan NP [facility] [address] [place] [address] Nurse Practitioner Nurse Practitioner Psych/Mental Health 04/10/17 Sweetie Burnett MD [address] [place] [address] Assigned PCP 02/15/17 09/08/20 Nikkie Jacques, [facility] [address] [place] [address] [address]12 [place] [address] Pharmacist Pharmacist 08/18/19 10/24/20 Nery Matos [facility] [address] [place], [place] [address] Pharmacist Pharmacist 02/13/20 10/24/20 [place] [address] [facility] [address] [place], [place] [address] Assigned Musculoskeletal Provider 04/06/20 12/25/20 Miranda Liao MD [facility] [place] 05/14/2024 Assigned PCP 09/09/20 10/13/20 Vlad Walsh MD [address] [place] [address] Assigned PCP 10/14/20 11/07/20 [place] [address] [place] [address] Assigned PCP 11/08/20 03/13/23 David Chu, PA-C [address] [facility] [address] [place] [address] Assigned Musculoskeletal Provider 12/28/20 05/11/21 Cb Hernández MD Assigned PCP 03/14/23 04/03/23 Cb Hernández MD Assigned PCP 04/11/23 04/17/23 Leia Moreno DO [address] [facility] [address] [place] [address] Assigned PCP 04/25/23 Toro Arnold MD [address] [place] [address] Surgeon Surgery 04/18/24 Toro Arnold MD [address] [place] [address] Assigned Surgical Provider 05/07/24 Clarke Gandhi MD [address] [place] [address] [place] [address] Assigned Musculoskeletal Provider 08/07/24 documented as of this encounter
--- OUTSIDE RECORDS SUMMARY | 2025-04-05 22:09 | XMS_ITS | Encounter Summary ---
Author Organization [place] Address [address] [place] [address]. [place] [address] Care Team Providers Care Member Services Coordinator Name Role Phone Shabana Phelan FLATWORK WASHER Unavailable [phone] Leia Moreno DO Primary Care Provide r Leia Moreno DO Unavailable Toro Arnold MD Unavailable [phone] Toro Arnold MD Unavailable [phone] Clarke Gandhi MD Unavailable [phone] Encounter Details Date Type Department Care Team (Late st Contact Info) Description 04/19/2024 [facility] [place] [facility] [facility] [address] [place] [address] Kemar Clinton Social History Tobacco Use Types Packs/Day Years Used Date Smoking Tobacco: Never Smokeless Tobacco: Never Alcohol Use Standard Drinks/Week Comments Yes 0 (1 standard drink = 0.6 oz pur e alcohol) rarely Social Connection and Isolation Panel [NHANES] A nswer Date Recorded Frequency of Communication with Friends and Fami ly Not on file 04/12/2024 How often do you get together with friends or re latives? Twice a week 04/12/2024 Attends Shinto Services Not on file 04/12 Active Member of Clubs or Organizations Not on f ile 04/12/2024 Attends Club or Organization Meetings Not on brandie e 04/12/2024 Marital Status Not on file 04/12/2024 AUDIT-C Answer Date Recorded Q1: How often do you have a drink containing alc ohol? Monthly or less 05/07/2021 Q2: How many drinks containi ng alcohol do you have on a typical day when you are drinking? 1 or 2 05/07/2021 Q3: How often do you have si x or more drinks on one occasion? Never 05/07/2021 PHQ-2 Answer Date Recorded PHQ-2 Score 0 04/13/2024 [facility] - Occupational Stress Questionnaire Answer Date Recorded Do you feel stress - tense, restless, nervous, or anxious, or unable to sleep at night because your mind is troubled all the time - these days? Very much 04/12/2024 Exercise Vital Sign Answer Date Recorde d On average, how many days pe r week do you engage in moderate to strenuous exercise (like a brisk walk)? 5 days 04/12/2024 On average, how many minutes do you engage in exercise at this level? 90 min 04/12/2024 Adolescent Education Answer Date Record ed Getting School Help Needed Not on file 03/06 Food Insecurity Answer Date Recorded Within the past 12 months, d id you worry that your food would run out before you got money to buy more? No 04/12/2024 Within the past 12 months, d id the food you bought just not last and you didn t have money to get more? No 04/12/2024 Housing Stability Answer Date Recorded Do you have housing? (Housin g is defined as stable permanent housing and does not include staying outside in a car, in a tent, in an abandoned building, in an overnight fci, or couch-surfing.) Yes 04/12/2024 Are you worried about losing your housing? No 04/12/2024 Financial Resource Strain Answer Date R ecorded Within the past 12 months, h ave you or your family members you live with been unable to get utilities (heat, electricity) when it was really needed? No 04/12/2024 Transportation Needs Answer Date Record ed Within the past 12 months, h as lack of transportation kept you from medical appointments, getting your medicines, non-medical meetings or appointments, work, or from getting things that you need? No 04/12/2024 Interpersonal Safety Answer Date Record ed Do you feel physically and e motionally safe where you currently live? Yes 04/13/2023 Within the past 12 months, h ave you been hit, slapped, kicked or otherwise physically hurt by someone? No 04/13/2023 Within the past 12 months, h ave you been humiliated or emotionally abused in other ways by your partner or ex-partner? 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 Not on file documented as of this encounter Plan of Treatment Upcoming Encounters Date Type Department Care Team (Late st Contact Info) Description 04/21/2025 10:40 AM BATCH RECORDS CLERK Office Visit [facility] [address] [place] [phone] Leia Moreno DO [address] [place] [address] documented as of this encounter Visit Diagnoses Not on filedocumented in this encounter Additional Health Concerns Infection Onset Date Last Indicated 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 02/05/2018 05/10/2024 9:57 AM BATCH RECORDS CLERK Assessment Noted Time PHQ-9 Depression Total Score: 8 04/12/20 24 10:47 AM CDT documented as of this encounter Care Teams Member Services Coordinator Relationship Specialty Start Date End Date Leia Moreno DO [address] [place] [address] PCP - General Internal Medicine 12/30/22 Shabana Phelan NP [place] [address] [place] [address] Nurse Practitioner Nurse Practitioner Psych/Mental Health 04/10/17 Leia Moreno DO [address] [place] [address] Assigned PCP 04/25/23 Toro Arnold MD [address] [place] [address] Surgeon Surgery 04/18/24 Toro Arnold MD [address] [place] [address] Assigned Surgical Provider 05/07/24 Clarke Gandhi MD [address] [place] [address] Assigned Musculoskeletal Provider 08/07/24 documented as of this encounter
--- OUTSIDE RECORDS SUMMARY | 2025-04-05 22:09 | XMS_ITS | Clinical Summary ---
Author Organization [employer] [facility] Address [address] [place] [address] Care Team Providers Care Aircraft Maintenance Technician Name Role Phone Pcp, No Primary Care Provider Unavailabl e Allergies Active Allergy Reactions Criticality Noted Date Comments Ciprofloxacin *Unknown 04/30/2012 Doxycycline Rash 04/28/2014 Erythromycin Nausea And Vomiting 04/30/2012 Hydrocodone *Unknown 04/10/2016 headache Levofloxacin *Unknown 04/30/2012 Sulfa (Sulfonamide Antibiotics) Rash 04/15 Medications MULTIVITAMIN TAB take 1 tablet by oral route once daily with food 0 Active CO Q-10 100 MG CAP once daily 0 Active cholecalciferol (VITAMIN D-3) 2,000 unit capsule Take 2,000 Units by mouth once daily. Take 1 tablet by mouth daily Active Cetirizine (ZYRTEC) 10 mg cap Take by mouth. Take 1 tablet by mouth daily Active montelukast (SINGULAIR) 10 mg tablet Take 10 mg by mouth at bedtime. Active medication order composer Calcium Citrate + Vitamin D chewable. 0 Active fluticasone (50 mcg per actuation) nasal solution (FLONASE) SPRAY 2 SPRAY(S) IN EACH NOSTRIL DAILY 3 02/13/20 16 Active LORazepam (ATIVAN) 0.5 mg tabIndications:Anx iety TAKE ONE-HALF TO TWO TABLETS BY MOUTH TWICE DAILY NEEDED FOR ANXIETY 60 tablet 5 06/10/20 16 Active levothyroxine (SYNTHROID) 112 mcg tablet Take 1 tablet by mouth once daily. 09/25/19 17 Active DULoxetine (CYMBALTA) 30 mg Delayed-release capsuleIndications :Seasonal affective disorder,Anxiety TAKE ONE CAPSULE BY MOUTH ONCE DAILY TOGETHER WITH 60MG TOTAL DOSE 90MG DAILY 30 capsule 1 01/03/20 17 Active DULoxetine (CYMBALTA) 60 mg Delayed-release capsuleIndications :Seasonal affective disorder,Anxiety TAKE ONE CAPSULE BY MOUTH ONCE DAILY TOGETHER WITH 30MG TOTAL DOSE 60MG DAILY 30 capsule 1 01/03/20 17 Active atorvastatin (LIPITOR) 20 mg tabletIndications: Hyperlipidemia, unspecified hyperlipidemia type Take 1 tablet by mouth once daily. More refills provided at completion of appointment scheduled 07-08-[address] Dunn. 30 tablet 1 05/17/20 18 Active cyanocobalamin (VITAMIN B12) 1,000 mcg/mL injection Take 5,000 mcg by mouth. Active calcium/magnesium/ vit B comp (CALCIUM-MAGNESIUM -B COMPLEX ORAL) Take 2 Tablets by mouth once daily. Active dextroamphetamine- amphetamine (ADDERALL) 20 mg tablet TAKE 1 TABLET BY MOUTH TWICE DAILY (ABOUT 6 HOURS APART) 10/14/19 23 Active ferrous sulfate, 65 mg elemental, tablet Take 325 mg by mouth. Active spironolactone (ALDACTONE) 25 mg tablet Take 25 mg by mouth. 08/08/19 22 Active clindamycin 1% (CLEOCIN-T) 1 % gel APPLY TOPICALLY TO WHOLE FACE IN THE MORNING. 04/24/20 22 Active Biotin 5 mg capsule Take 1 Capsule by mouth once daily. 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 Hypothyroid, on levothyroxine 05/04/2014 Malignant neoplasm of breast (female), unspecifi ed site 08/28/2006 Resolved Problems Problem Noted Date Diagnosed Date Resolved Date Major depressive disorder, r ecurrent episode, in partial remission 07/14/2014 07/27/2014 Hypercholesteremia 05/04/2014 5 Spasm of muscle 08/28/2006 05/04/2014 Family History Medical History Relation Name Comments Heart Disease Father Other Maternal Aunt graves disese Cancer Maternal Grandfather lung ca ncer Diabetes Mother type II Cancer-breast Other 1 P-great grandm other Cancer-breast Other 2 M-great grandm other Cancer Paternal Grandfather bladder cancer Cancer Paternal Grandmother bone ca ncer Hypertension Sister Cancer-ovarian No Family History Relation Name Status Comments Father Maternal Aunt Maternal Grandfather Mother Other 1 Other 2 Paternal Grandfather Paternal Grandmother Sister Social History Tobacco Use Types Packs/Day Years Used Date Smoking Tobacco: Never Smokeless Tobacco: Never Alcohol Use Standard Drinks/Week Comments Yes 0 (1 standard drink = 0.6 oz pur e alcohol) very rarely Comments No Sex and Gender Information Value Date Recorded Sex Assigned at Not on file Legal Sex Female 5:24 AM ELECTRONICS TEACHER Gender Identity Not on file Sexual Orientation Not on file Obstetrics History Last Filed Vital Signs Vital Sign Reading Time Taken Comments Blood Pressure 107/72 10/29/2022 10:38 AM CDT Pulse 85 10/29/2022 10:38 AM CDT Temperature 36.6 C (97.9 F) 12/23/2012 11:20 AM CDT Respiratory Rate 16 12/23/2012 12:30 PM CDT Oxygen Saturation 100% 09/24/2016 9:25 AM CDT Inhaled Oxygen Concentration - - Weight 55.2 kg (121 lb 9.6 oz) 10/29/2022 10:38 AM CDT Height 154.9 cm (5' 1) 09/24/2016 9:25 AM CDT Body Mass Index 22.98 09/24/2016 9:25 AM CDT Plan of Treatment Health Maintenance Due Date Last Done Comments Tetanus booster 1978 HIV for age 15-65 1982 Hepatitis C screening for age 18-79 1985 Hepatitis B series for 19+ ( 1 of 3 - 19+ 3-dose series) 1986 Pneumococcal series for age 50+ (1 of 2 - PCV) 1986 Pap test for age 21-65 02/28/1988 Colonoscopy through age 75 02/28/2012 Mammogram for age 45-75 02/28/2012 06/24/2006 Zoster (shingles) series for age 50+ (1 of 2) 2017 Depression screening for age 12+ 04/10/2017 04/10/20 16, 10/16/2015 BMI (ht and wt on same day) for age 18+ 09/24/2017 0 09/24/2016 Lipids for age 45-75 09/24/2021 09/24/2016, 04/28/20 14 COVID-19 vaccine series ( season) 2025 Influenza Vaccine (#1) 2025 RSV vaccine for adults or pr egnancy (1 - 1-dose 75+ series) 2042 Medical Devices Implanted Type Area Painting Supervisor Device Identifier Shelf Expiration Date Model / Serial / Lot [id number] implnt Mammary [id number] [[id number]] Implanted:Qty: 1 on 07/17/2006 at [facility] Explanted:at [facility] (Quantity not on file) Right: Breast [employer]ENT[employer]PLANTS [id number]# / [id number] / [id number] implnt Mammary [id number] [[id number]] Implanted:Qty: 1 on 07/17/2006 at [facility] Explanted:at [facility] (Quantity not on file) Left: Breast [employer]PLANT[employer] [id number]# / [id number] Port Low Profile W/6fr [id number] Bardaccess - [id number] Implanted:Qty: 1 on 08/19/2006 at [facility] Left: Chest [employer] [id number]# / / [id number] [id number] Mammary 500cc [[id number] Implanted:Qty: 1 on 02/04/2007 at [facility] Explanted:at [facility] (Quantity not on file) Left: Breast [employer] IMPLANTS 350-5004BC # / [id number] implnt Mammary 500cc [[id number]] Implanted:Qty: 1 on 02/04/2007 at [facility] Explanted:at [facility] (Quantity not on file) Right: Breast [employer]PLANT[employer] 350-5004BC # / [id number] / [id number] Implanted:Qty: 1 on 12/23/2012 at [facility] [employer] 11/12/2017 [id number] / [id number] Description:SMOOTH UHP 590CC [id number] Implanted:Qty: 1 on 12/23/2012 at [facility] Explanted:at [facility] (Quantity not on file) [employer] 01/12/2018 [id number] / [id number] Description:SMOOTH UHP 590CC Procedures Procedure Name Priority Date/Time Associated Diagnosis Comments LIPID PANEL W REFLEX MEASURED LDL Today 09/24/2016 9:58 AM CDT Coronary artery disease involving ottawa coronary artery of ottawa heart without angina pectoris Hypercholesteremia XR MAMMO BILAT DIAG FFDM (IA) Routine 06/24/2006 1:24 PM ELECTRONICS TEACHER Abnormal Mammogram from Last 3 Months or Most Recently Relevant to Health Maintenance Results * (ABNORMAL) LIPID PANEL W REFLEX MEASURED LDL (09/24/2016 9:58 AM CDT) CHOLESTEROL,TOTAL 216(H) 100 - 199 mg/dL 09/24/2016 10:48 AM CDT [employer] [facility] TRIGLYCERIDES 95 <150 mg/dL 09/24/2016 10:48 AM CDT [employer] HDL CHOLESTEROL 64 >40 mg/dL 7 10:48 AM CDT [facility] NON-HDL CHOLESTEROL 152(H) <145 mg/dl 09/24/2016 10:48 AM T [employer] [facility] CHOL/HDL RATIO 3.38 <4.50 09/24/2016 10:48 AM T [employer] [facility] LDL CHOLESTEROL 133(H) <=130 mg/dL 09/24/2016 10:48 AM T [employer] [facility] PATIENT STATUS FASTING 09/24/2016 10:48 AM CD[address] [facility] Blood BLOOD SPECIMEN / Unknown Venipuncture / Unknown 09/24/2016 9:58 AM CDT 09/24/2016 10:08 AM CDT us Aidan Dunn MD CHEMISTRY Final Re sult [facility] [address] [place] [address], [place] * XR MAMMO BILAT DIAG FFDM (06/24/2006 1:24 PM ELECTRONICS TEACHER) Anatomical Region Laterality Modality BREASTS, Breast Left, Breast Right Bilateral Mammography 06/24/2006 1:24 PM ELECTRONICS TEACHER Impressions 06/24/2006 2:30 PM ELECTRONICS TEACHER 1. No abnormality is seen in the left breast on ultrasound to correspond to the questionable mass-like density seen on view of the mammogram. I think that this is likely just a lobule of normal tissue. I recommended a six-month follow mammogram of the left breast to be certain that this is remaining stable. The patient was comfortable with this. 2. The calcifications in the right breast show minimal pleomorphism. Suspicion of malignancy is low, but they are not classically benign. I recommended that one of these be biopsied. This would be amenable to stereotactic biopsy. The patient agreed with this, unfortunately we were not able to do it today, but she is scheduled for a stereotactic biopsy on 06/29/06. Narrative 06/24/2006 2:30 PM ELECTRONICS TEACHER BILATERAL DIAGNOSTIC MAMMOGRAM DONE WITH FULL-FIELD DIGITAL MAMMOGRAPHY AND ULTRASOUND OF THE LEFT BREAST, 06/24/06 CLINICAL HISTORY: This is a 41-year-old patient who had a baseline mammogram at [facility] [place] on 06/10/06. This showed two questionable densities in the left breast and two questionable areas of calcifications in the right breast. She is here for workup of these. She has no family history of breast cancer. FINDINGS: This mammogram has been obtained using full-field digital technique. Spot compression views were obtained of the inner lower quadrant of the left breast in the oblique and craniocaudad position. On the oblique view, I do not see any definite mass. On the craniocaudad view, there is at least a suggestion of a mass. A portion of the border is obscured by overlying tissue, but there is a somewhat comma-shaped mass-like density in the medial anterior left breast. Because there is a question of a mass, ultrasound of the medial left breast was obtained. The subareolar area was assessed as well. Careful ultrasound of this region shows no discrete solid or cystic lesion. No architectural distortion is evident. Prominent lobules are noted. Right breast magnification views were obtained of the calcifications in the upper outer quadrant in the craniocaudad and mediolateral positions. There are two clusters of microcalcifications and these are located approximately 3 cm apart. Magnification views show that these calcifications are minimally pleomorphic. One cluster measures approximately 0.5 cm in maximum dimension and the other about 0.3 cm. Procedure Note Qi Rothman - 06/25/2006 BILATERAL DIAGNOSTIC MAMMOGRAM DONE WITH FULL-FIELD DIGITAL MAMMOGRAPHYAND ULTRASOUND OF THE LEFT BREAST, 06/24/06 CLINICAL HISTORY: This is a 41-year-old patient who had a baselinemammogram at [facility] [place] on 06/10/06. This showed two questionabledensities in the left breast and two questionable areas of calcificationsin the right breast. She is here for workup of these. She has no familyhistory of breast cancer. FINDINGS: This mammogram has been obtained using full-field digitaltechnique. Spot compression views were obtained of the inner lower quadrant of theleft breast in the oblique and craniocaudad position. On the oblique view,I do not see any definite mass. On the craniocaudad view, there is atleast a suggestion of a mass. A portion of the border is obscured byoverlying tissue, but there is a somewhat comma-shaped mass-like densityin the medial anterior left breast. Because there is a question of a mass, ultrasound of the medial leftbreast was obtained. The subareolar area was assessed as well. Carefulultrasound of this region shows no discrete solid or cystic lesion. Noarchitectural distortion is evident. Prominent lobules are noted. Right breast magnification views were obtained of the calcifications inthe upper outer quadrant in the craniocaudad and mediolateral positions.There are two clusters of microcalcifications and these are locatedapproximately 3 cm apart. Magnification views show that thesecalcifications are minimally pleomorphic. One cluster measuresapproximately 0.5 cm in maximum dimension and the other about 0.3 cm. IMPRESSION: 1. No abnormality is seen in the left breast on ultrasound to correspondto the questionable mass-like density seen on view of the mammogram. Ithink that this is likely just a lobule of normal tissue. I recommended asix-month follow mammogram of the left breast to be certain that this isremaining stable. The patient was comfortable with this. 2. The calcifications in the right breast show minimal pleomorphism.Suspicion of malignancy is low, but they are not classically benign. Irecommended that one of these be biopsied. This would be amenable tostereotactic biopsy. The patient agreed with this, unfortunately we werenot able to do it today, but she is scheduled for a stereotactic biopsy on06/29/06. us Amanda Ricardo MD MAMMO Final Result from Last 3 Months or Most Recently Relevant to Health Maintenance Insurance [place] [id number] Advance Directives * Full Code (Latest Code Status on File) Date Activated Date Inactivated Comments 12/23/2012 8:54 AM 12/23/2012 3:56 PM * Full Code Date Activated Date Inactivated Comments 05/03/2012 11:47 AM 05/04/2012 2:26 AM * Full Code Date Activated Date Inactivated Comments 04/29/2007 3:39 PM 04/29/2007 6:29 PM * Full Code Date Activated Date Inactivated Comments 02/04/2007 12:54 PM 02/04/2007 8:42 PM * Full Code Date Activated Date Inactivated Comments 07/17/2006 3:07 PM 07/20/2006 12:52 PM Care Teams Aircraft Maintenance Technician Relationship Specialty Start Date End Date Pcp, No . PCP - General 01/13/23
--- OUTSIDE RECORDS SUMMARY | 2025-04-05 22:09 | XMS_ITS | Encounter Summary ---
Author Organization [facility] Address [address] [place] [address]. [place] [address] Care Team Providers Care Machine Hoop Maker Helper Name Role Phone TapanShabana IRON LAUNDER OPERATOR Unavailable [phone] Leia Moreno DO Primary Care Provide r Leia Moreno DO Unavailable Toro Arnold MD Unavailable [phone] Toro Arnold MD Unavailable [phone] Clarke Gandhi MD Unavailable Encounter Details Date Type Department Care Team (Late st Contact Info) Description 11/17/2023 [facility] Medical Advice [address] [place] [address] Carrie Murrell MA Social History Tobacco Use Types Packs/Day [...] How often do you attend chur or restoration services? More than 4 times per year 05/07/2021 Do you belong to any clubs o r organizations such as restorationist groups, unions, fraternal or athletic groups, or [...] PHQ-2 Answer Date Recorded PHQ-2 Score 0 04/13/2023 [facility] [place] [facility] Occupat ional Health - Occupational Stress [...] exercise at this level? 40 min 05/07/2021 Adolescent Education Answer Date Record ed Getting School Help Needed Not on file 03/06 Food Insecurity Answer Date Recorded Within the past 12 months, d id you worry that your food would run out before you got money to buy more? No 04/13/2023 Within the past 12 months, d id the food you bought just not last and you didn t have money to get more? No 04/13/2023 Housing Stability Answer Date Recorded Do you have housing? (Housin g is defined as stable permanent housing and does not include staying outside in a car, in a tent, in an abandoned building, in an overnight group home, or couch-surfing.) Yes 04/13/2023 Are you worried about losing your housing? No 04/13/2023 Financial Resource Strain Answer Date R ecorded Within the past 12 months, h ave you or your family members you live with been unable to get utilities (heat, electricity) when it was really needed? No 04/13/2023 Transportation Needs Answer Date Record ed Within the past 12 months, h as lack of transportation kept you from medical appointments, getting your medicines, non-medical meetings or appointments, work, or from getting things that you need? 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 Not on file Not on file documented as of this encounter Plan of Treatment Upcoming Encounters Date Type Department Care Team (Late st Contact Info) Description 04/21/2025 10:40 AM GLASSWARE FINISHER Office Visit [facility] [address] [place] [phone] Leia Moreno DO [address] [facility] [address] [place] [address] documented as of this encounter Visit Diagnoses Not on filedocumented in this encounter Additional Health Concerns Infection Onset Date Last Indicated 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 02/05/2018 05/10/2024 9:57 AM GLASSWARE FINISHER Assessment Noted Time PHQ-9 Depression Total Score: 9 04/13/20 23 9:32 AM CDT documented as of this encounter Care Teams Machine Hoop Maker Helper Relationship Specialty Start Date End Date Leia Moreno DO [address] [place] [address] PCP - General Internal Medicine 12/30/22 Shabana Phelan NP [facility] [address] [place] [address] Nurse Practitioner Nurse Practitioner Psych/Mental Health 04/10/17 Leia Moreno DO [address] [place], [place] [id number] Assigned PCP 04/25/23 Toro Arnold MD [address] [place] [address] Surgeon Surgery 04/18/24 Toro Arnold MD [address] [place] [address] Assigned Surgical Provider 05/07/24 Clarke Gandhi MD [address] [place] [address] Assigned Musculoskeletal Provider 08/07/24 documented as of this encounter
--- OUTSIDE RECORDS SUMMARY | 2025-04-05 22:09 | XMS_ITS | Encounter Summary ---
Author Organization [facility] Address [address] [place] [address] Care Team Providers Care Superintendent Construction Name Role Phone Sweetie Burnett MD Primary Care Provider [phone] [facility] Unavailable [phone] Sweetie Burnett MD Unavailable [phone] Nikkie Jacques [facility] Unavailable Nery Matos [facility] Unavailable [phone] Stewart Alfaro MD Unavailable [phone] Miranda Liao MD Unavailable Unavailable Raquel Hernandez MD Primary Care Provider Vlad Walsh MD Unavailable [phone] Raquel Hernandez MD Unavailable David Chu PA-C Unavailable Leia Moreno DO Primary Care Provide r Cb Hernández MD Unavailable Unavail able Cb Hernández MD Unavailable Unavail able Leia Moreno DO Unavailable [phone] Toro Arnold MD Unavailable [phone] Toro Arnold MD Unavailable [phone] Clarke Gandhi MD Unavailable [phone] Encounter Details Date Type Department Care Team (Late st Contact Info) Description 07/17/2020 [facility] Medical Advice [place] [address] [place] [phone] Sweetie Burnett MD [address] [place] [address] Social History Tobacco Use Types Packs/Day Years Used Date Smoking Tobacco: Never Smokeless Tobacco: Never Alcohol Use Standard Drinks/Week Comments Yes 0 (1 standard drink = 0.6 oz pur e alcohol) rarely PHQ-2 Answer Date Recorded PHQ-2 Score 0 10/26/2019 Comments No Sex and Gender Information Value Date Recorded Sex Assigned at Female 06/28/2018 5:01 AM ACCOUNT ASSISTANT Legal Sex Female 3:40 AM ACCOUNT ASSISTANT Gender Identity Female 05/25/2018 3:53 PM ACCOUNT ASSISTANT Sexual Orientation Straight 04/24/2021 4: 48 PM ACCOUNT ASSISTANT 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 No / Unsure 07/18/2020 1:02 PM ACCOUNT ASSISTANT documented as of this encounter Plan of Treatment Upcoming Encounters Date Type Department Care Team (Late Contact Info) Description 04/21/2025 10:40 AM ACCOUNT ASSISTANT Office Visit [address] [place] [phone] Leia Moreno DO [address] [place] [address] [address] [place] [address] documented as of this encounter Visit Diagnoses Not on filedocumented in this encounter Additional Health Concerns Infection Onset Date Last Indicated 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 02/05/2018 05/10/2024 9:57 AM ACCOUNT ASSISTANT Assessment Noted Time PHQ-9 Depression Total Score: 3 09/07/19 20 9:37 AM CDT documented as of this encounter Care Teams Superintendent Construction Relationship Specialty Start Date End Date Sweetie Burnett MD PCP - General Internal Medicine 07/03/16 11/05/20 [place] [address] [place] [address] PCP - General Family Medicine 11/06/20 12/29/22 Leia Moreno DO [address] [facility] [address] [place] [address] PCP - General Internal Medicine 12/30/22 Shabana Phelan NP [facility] [address] [place] [address] Nurse Practitioner Nurse Practitioner Psych/Mental Health 04/10/17 Sweetie Burnett MD [address] [place] [address] Assigned PCP 02/15/17 09/08/20 Nikkie Jacques [facility] [address] [facility] [address] [place] [address] Pharmacist Pharmacist 08/18/19 10/24/20 Nery Matos [facility] [address] [place] [address] Pharmacist Pharmacist 02/13/20 10/24/20 [place] [address] [facility] [address] [place], [place] [address] Assigned Musculoskeletal Provider 04/06/20 12/25/20 Miranda Liao MD [facility] [place] 05/14/2024 Assigned PCP 09/09/20 10/13/20 Vlad Walsh MD [address] [place] [address] Assigned PCP 10/14/20 11/07/20 [place] [address] [place] [address] Assigned PCP 11/08/20 03/13/23 David Chu PA-C [address] [facility] [address] [place] [address] Assigned Musculoskeletal Provider 12/28/20 05/11/21 Cb Hernández MD Assigned PCP 03/14/23 04/03/23 Cb Hernández MD Assigned PCP 04/11/23 04/17/23 Leia Moreno DO [address] [facility] [address] [place] [address] Assigned PCP 04/25/23 Toro Arnold MD [address] [place] [address] Surgeon Surgery 04/18/24 Toro Arnold MD [address] [place] [address] Assigned Surgical Provider 05/07/24 Clarke Gandhi MD [address] [place] [address] Assigned Musculoskeletal Provider 08/07/24 documented as of this encounter
--- OUTSIDE RECORDS SUMMARY | 2025-04-05 22:09 | XMS_ITS | Encounter Summary ---
Author Organization [facility] Address [address] [place] [address] Care Team Providers Care Metalsmith Apprentice Name Role Phone Sweetie Burnett MD Primary Care Provider [phone] [facility] NP Unavailable Sweetie Burnett MD Unavailable [phone] Nikkie Jacques [facility] Unavailable [phone] Nery Matos [facility] Unavailable Stewart Alfaro MD Unavailable Miranda Liao MD Unavailable Unavailable Raquel Hernandez MD Primary Care Provider [phone] Vlad Walsh MD Unavailable [phone] Raquel Hernandez MD Unavailable David Chu PA-C Unavailable Leia Moreno DO Primary Care Provide r Cb Hernández MD Unavailable Unavail able Cb Hernández MD Unavailable Unavail able Leia Moreno DO Unavailable Toro Arnold MD Unavailable [phone] Toro Arnold MD Unavailable [phone] Clarke Gandhi MD Unavailable [phone] Reason for Visit * Reason Comments Medication Refill Encounter Details Date Type Department Care Team (Late st Contact Info) Description 12/04/2019 Refill [facility] [address] [place] [phone] Sweetie Burnett MD [address] [place] [address] Medication Refill Social History Tobacco Use Types Packs/Day Years Used Date Smoking Tobacco: Never Smokeless Tobacco: Never Alcohol Use Standard Drinks/Week Comments Yes 0 (1 standard drink = 0.6 oz pur e alcohol) rarely PHQ-2 Answer Date Recorded PHQ-2 Score 0 10/26/2019 Comments No Sex and Gender Information Value Date Recorded Sex Assigned at Female 06/28/2018 5:01 AM CAR WHACKER Legal Sex Female 3:40 AM CAR WHACKER Gender Identity Female 05/25/2018 3:53 PM CAR WHACKER Sexual Orientation Straight 04/24/2021 4: 48 PM CAR WHACKER 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 No / Unsure 11/10/2019 8:56 AM CDT documented as of this encounter Miscellaneous Notes * Telephone Encounter - Geetha Duran RN - 12/06/2019 11:47 AM CDT Medication refilled per [facility] [place] Geetha Duran RN documented in this encounter Plan of Treatment Upcoming Encounters Date Type Department Care Team (Late Contact Info) Description 04/21/2025 10:40 AM CAR WHACKER Office Visit [facility] [address] [place] [phone] Leia Moreno DO [address] [place], [place] [phone] documented as of this encounter Visit Diagnoses Diagnosis Anxiety state Anxiety state, unspecified documented in this encounter Additional Health Concerns Infection Onset Date Last Indicated 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 02/05/2018 05/10/2024 9:57 AM CAR WHACKER Assessment Noted Time PHQ-9 Depression Total Score: 3 09/07/19 20 9:37 AM CDT documented as of this encounter Care Teams Metalsmith Apprentice Relationship Specialty Start Date End Date Sweetie Burnett MD PCP - General Internal Medicine 07/03/16 11/05/20 [place] [address] [place] [address] PCP - General Family Medicine 11/06/20 12/29/22 Leia Moreno DO [address] [facility] [address] [place] [address] PCP - General Internal Medicine 12/30/22 Shabana Phelan NP [facility] [address] [place], [place] [address] Nurse Practitioner Nurse Practitioner Psych/Mental Health 04/10/17 Sweetie Burnett MD [address] [address] Assigned PCP 02/15/17 09/08/20 Nikkie Jacques [facility] [address] [place] [address] [address] [place], [place] [address] Pharmacist Pharmacist 08/18/19 10/24/20 Nery Matos [facility] [address] [place], [place] [address] Pharmacist Pharmacist 02/13/20 10/24/20 [place] [address] [facility] [address] [place] [address] Assigned Musculoskeletal Provider 04/06/20 12/25/20 Miranda Liao MD [place] [place] 05/14/2024 Assigned PCP 09/09/20 10/13/20 Vlad Walsh MD [address] [place] [address] Assigned PCP 10/14/20 11/07/20 [place] [address] [place] [address] Assigned PCP 11/08/20 03/13/23 David Chu PAAceC [address] [facility] [address] [place] [address] Assigned Musculoskeletal Provider 12/28/20 05/11/21 Cb Hernández MD Assigned PCP 03/14/23 04/03/23 Cb Hernández MD Assigned PCP 04/11/23 04/17/23 Leia Moreno DO [address] [facility] [address] [place] [address] Assigned PCP 04/25/23 Toro Arnold MD [address] [place] [address] Surgeon Surgery 04/18/24 Toro Arnold MD [address] [place] [address] Assigned Surgical Provider 05/07/24 Clarke Gandhi MD [address] [facility] [address] [place] [address] Assigned Musculoskeletal Provider 08/07/24 documented as of this encounter
--- OUTSIDE RECORDS SUMMARY | 2025-04-05 22:09 | XMS_ITS | Patient Health Record ---
Author Organization [facility] Address [address] [place] [address] Care Team Providers Care Car Checker Name Role Phone Leia Moreno Primary Care Provider ABY Brown Unavailable [phone] Evgeny Hernandez Unavailable [phone] Allergies Allergen (clinical drug ingredient) Drug/Non Drug Allergy documented on EMR Reaction Allergy Type Onset Date Status ciprofloxacin Ciprofloxacin hives Drug Allergy Active doxycycline Doxycycline hives Drug Allergy Act rene erythromycin Erythromycin Unknown Drug Allergy A ctive hydrocodone Hydrocodone nausea and vomiting Drug Allergy Active Reason For Referral No Information Medications Medication SIG (Take, Route, Frequency, Duration) Notes Start Date End Date Status DULoxetine HCl 30 MG Capsule Delayed Release Particles Oral; Duration: 90 Days Active Amphetamine-Dextroamphetamin e 20 MG Tablet Oral; Duration: 30 Days Ac tive Spironolactone 25 MG Tablet Oral; Duration: 90 Days Active Montelukast Sodium 10 MG Tablet TAKE 1 TABLET (10 MG) BY MOUTH DAILY. Oral; Duration: 90 Days Active Atorvastatin Calcium 20 MG Tablet TAKE 1 TABLET BY MOUTH EVERY DAY Oral; Duration: 90 Days Active Fluticasone Propionate 50 MCG/ACT Suspension 1 spray in each nostril Nasally Twice a day Active Cetirizine HCl 10 MG Tablet 1 tablet Ora lly Once a day Active Synthroid 112 MCG Tablet 1 tablet in the morning on an empty stomach Orally Once a day Active Social History Tobacco Use: Social History Observation Description Date Details (start date - stop date) Never Smoker NA - NA Social History Alcohol Use: Social Info Question Answer Notes Recreational drugs Recreational Drug Use: No Drug/Alcohol: Social Info Question Answer Notes AUDIT-C (Standard) Did you have a drink containing alcohol in the past year? Yes How often did you have six or more drinks on one occasion in the past year? Never (0 point) How many drinks did you have on a typical day when you were drinking in the past year? 1 or 2 drinks (0 point) How often did you have a drink containing alcohol in the past year? 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) Active confirmed Vital Signs Height-cm 157.48 cm 05/02/2024 Weight-kg 55.97 kg 05/02/2024 Height 62 in 05/02/2024 Weight 123.4 lbs 05/02/2024 BMI 22.57 kg/m2 05/02/2024 Encounters Encounter Location Date Provider Diagnosis [facility] [address] [place] [phone] 05/02/2024 ABY BERNSTEIN Acute recurrent maxillary sinusitis J01.01 and Other abnormal auditory perceptions, bilateral H93.293 [facility] [address] [place] [address] 05/02/2024 Evgeny Hernandez Other abnormal auditory perceptions, bilateral H93.293 Assessments Encounter Date Diagnosis (ICD Code) Assessment Notes Treatment Notes Treatment Clinical Notes Section Notes 05/02/2024 Acute recurrent maxillary sinusitis (ICD-10 - J01.01) She describes having 2 satisfactions per year. She is having symptoms of sinus pressure recently. Examination showed minimal changes in her nose though based on her symptoms I think is reasonable to give her a round of Augmentin. She was cautioned of the possible side effects of the antibiotic. Follow-up if further concerns. 05/02/2024 Other abnormal auditory perceptions, bilateral (ICD-10 - H93.293) She has normal hearing. There is a slight asymmetry of hearing in the highest frequencies but hearing still within normal limits. Recommend observation. Recommend repeat audiogram in 1 year. Reassured she does not need hearing aids. 05/02/2024 Other abnormal auditory perceptions, bilateral (ICD-10 - H93.293) Plan Of Treatment No Information Insurance Providers Payer Name Payer Address Payer Phone Subscriber Number Group Number Insured Name Patient Relationship to Insured Coverage Start Date Coverage End Date PENDING SALE TO [employer] [address] [place], [place] [id number] Coretta Beavers Self - patient is the insured Medical (General) History Medical History History ICD Code Breast cancer Thyroid disease Surgical History Surgery Date(Month/Year) Tonsillectomy Appendectomy Bilateral mastectomy Foot x 2 Evan n y bypass Hospitalization History Reason Date(Month/Year) Same as Surgical history
--- OUTSIDE RECORDS SUMMARY | 2025-04-05 22:09 | XMS_ITS | Encounter Summary ---
Author Organization [facility] Address [address] [place] [address] Care Team Providers Care Prepared Foods Team Leader Name Role Phone Shabana Phelan ORNAMENTAL IRONWORKING SUPERVISOR Unavailable [phone] Leia Moreno DO Primary Care Provide r Leia Moreno DO Unavailable [phone] Toro Arnold MD Unavailable Toro Arnold MD Unavailable [phone] Clarke Gandhi MD Unavailable [phone] Encounter Details Date Type Department Care Team (Late st Contact Info) Description 04/29/2024 MyC Medical Advice [facility] [place] [address] [place] [address] She Coyle, CONCHIS Social History Tobacco Use Types Packs/Day Years [...] re latives? 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 Author MYC ECC SURG ENROLL Care Plan MyC ECC SURG ENROLL No Esthela Juan documented as of this encounter Visit Diagnoses Not on filedocumented in this encounter Additional Health Concerns Active Problems Noted Date Diagnosed Date MyC ECC SURG ENROLL 04/29/2024 Infection Onset Date Last Indicated 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 02/05/2018 05/10/2024 9:57 AM PROTECTION CONSULTANT Assessment Noted Time PHQ-9 Depression Total Score: 8 04/12/20 24 10:47 AM CDT documented as of this encounter Care Teams Prepared Foods Team Leader Relationship Specialty Start Date End Date Leia Moreno DO [address] [place] [address] PCP - General Internal Medicine 12/30/22 Shabana Phelan NP [facility] [address] [place] [address] Nurse Practitioner Nurse Practitioner Psych/Mental Health 04/10/17 Leia Moreno DO [address] [place], [place] [phone] Assigned PCP 04/25/23 Toro Arnold MD [address] [place] [address] Surgeon Surgery 04/18/24 Toro Arnold MD [address] [place] [address] Assigned Surgical Provider 05/07/24 Clarke Gandhi MD [address] [place] [address] Assigned Musculoskeletal Provider 08/07/24 documented as of this encounter
--- OUTSIDE RECORDS SUMMARY | 2025-04-05 22:09 | XMS_ITS | Encounter Summary ---
Author Organization [facility] Address [address] [place] [address]. [place] [address] Care Team Providers Care Engineering Research Manager Name Role Phone Shabana Phelan COMMUNITY COORDINATOR Unavailable [phone] Leia Moreno DO Primary Care Provide r Leia Moreno DO Unavailable Toro Arnold MD Unavailable [phone] oTro Arnold MD Unavailable [phone] Clarke Gandhi MD Unavailable [phone] Encounter Details Date Type Department Care Team (Late st Contact Info) Description 04/25/2024 MyC Medical Advice [facility] [address] 4[address] [place] [address] Qi Cox LPN Social History Tobacco Use Types Packs/Day Years [...] re latives? Twice a week 04/12/2024 Attends Restoration Services Not on file 04/12 Active Member [...] Answer Date Recorded PHQ-2 Score 0 04/13/2024 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 file Not on file documented as of this encounter Plan of Treatment Upcoming Encounters Date Type Department Care Team (Late st Contact Info) Description 04/21/2025 10:40 AM REHABILITATION NURSE Office Visit [facility] [address] [place] [phone] Leia Moreno DO [address] [place] [address] documented as of this encounter Visit Diagnoses Not on filedocumented in this encounter Additional Health Concerns Infection Onset Date Last Indicated 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 02/05/2018 05/10/2024 9:57 AM REHABILITATION NURSE Assessment Noted Time PHQ-9 Depression Total Score: 8 04/12/20 10:47 AM CDT documented as of this encounter Care Teams Engineering Research Manager Relationship Specialty Start Date End Date Leia Moreno DO [address] [place] [address] PCP - General Internal Medicine 12/30/22 Shabana Phelan NP [place] [address] [place] [address] Nurse Practitioner Nurse Practitioner Psych/Mental Health 04/10/17 Leia Moreno DO [address] [place] [address] Assigned PCP 04/25/23 Toro Arnold MD [address] [place] [address] Surgeon Surgery 04/18/24 Toro Arnold MD [address] [place] [address] Assigned Surgical Provider 05/07/24 Clarke Gandhi MD [address] [place] [address] Assigned Musculoskeletal Provider 08/07/24 documented as of this encounter
--- OUTSIDE RECORDS SUMMARY | 2025-04-05 22:09 | XMS_ITS | Encounter Summary ---
Author Organization [facility] Address [address] [place] [address]. [place] [address] Care Team Providers Care Cancer Center Director Name Role Phone Shabana Phelan WIND SITE MANAGER Unavailable [phone] Leia Moreno DO Primary Care Provide r Leia Moreno DO Unavailable Toro Arnold MD Unavailable [phone] Toro Arnold MD Unavailable [phone] Clarke Gandhi MD Unavailable [phone] Encounter Details Date Type Department Care Team (Late st Contact Info) Description 06/03/2024 MyC Medical Advice Initial Department Manny Yates Social History Tobacco Use Types Packs/Day Years [...] re latives? Twice a week 04/12/2024 Attends Quaker Services Not on file 04/12 Active Member [...] PHQ-2 Answer Date Recorded PHQ-2 Score 0 06/06/2024 [facility] of Occupat ional [facility] - Occupational Stress Questionnaire Answer Date Recorded [...] Answer Date Recorded Do you have housing? ([place] is defined as stable permanent housing and does not include staying outside in a car, in a tent, in an abandoned building, in an overnight senior living, or couch-surfing.) Yes 04/12/2024 Are you worried [...] motionally safe where you currently live? Yes 06/06/2024 Within the past 12 months, h ave you been hit, slapped, kicked or otherwise physically hurt by someone? No 06/06/2024 Within the past 12 months, h ave you been humiliated or emotionally abused in other ways by your partner or ex-partner? 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 Author MYC ECC SURG ENROLL Care Plan MyC ECC SURG ENROLL No Juan Esthela M documented as of this encounter Visit Diagnoses Not on filedocumented in this encounter Additional Health Concerns Active Problems Noted Date Diagnosed Date MyC ECC SURG ENROLL 04/29/2024 Assessment Noted Time PHQ-9 Depression Total Score: 8 04/12/20 24 10:47 AM CDT documented as of this encounter Care Teams Cancer Center Director Relationship Specialty Start Date End Date Leia Moreno DO [address] [place] [address] PCP - General Internal Medicine 12/30/22 Shabana Phelan NP [address] [address] Nurse Practitioner Nurse Practitioner Psych/Mental Health 04/10/17 Leia Moreno DO [address] [place] [address] Assigned PCP 04/25/23 Toro Arnold MD [address] [place] [address] Surgeon Surgery 04/18/24 Toro Arnold MD [address] [place] [address] Assigned Surgical Provider 05/07/24 Clarke Gandhi MD [address] [place] [address] Assigned Musculoskeletal Provider 08/07/24 documented as of this encounter
--- OUTSIDE RECORDS SUMMARY | 2025-04-05 22:09 | XMS_ITS | Encounter Summary ---
Author Organization [facility] Address [address] [place] [address]. [place] [address] Care Team Providers Care Customer Service Correspondence Clerk Name Role Phone Shabana Phelan MANAGER ARMY Unavailable [phone] Leia Moreno DO Primary Care Provide r Leia Moreno DO Unavailable Toro Arnold MD Unavailable [phone] Toro Arnold MD Unavailable [phone] Clarke Gandhi MD Unavailable [phone] Encounter Details Date Type Department Care [...] re latives? Twice a week 04/12/2024 Attends Amish Services Not on file 04/12 Active Member [...] Date Recorded PHQ-2 Score 0 06/06/2024 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 Not on file documented as of this encounter Plan of Treatment Upcoming Encounters Date Type Department Care Team (Late st Contact Info) Description 04/21/2025 10:40 AM INSIDE HORTICULTURAL SPECIALTY GROWER Office Visit [facility] [address] [place] [address] [place] [phone] Leia Moreno DO [address] [facility] [address] [place] [address] documented as of this encounter Goals Goal [...] documented as of this encounter Care Teams Customer Service Correspondence Clerk Relationship Specialty Start Date End Date Leia Moreno DO [address] [place] [address] PCP - General Internal Medicine 12/30/22 Shabana Phelan NP [address] [address] Nurse Practitioner Nurse Practitioner Psych/Mental Health 04/10/17 Leia Moreno DO [address] [place] [address] Assigned PCP 04/25/23 Toro Arnold MD [address] [place] [address] Surgeon Surgery 04/18/24 Toro Arnold MD [address] [place] [address] Assigned Surgical Provider 05/07/24 Clarke Gandhi MD [address] [place] [address] Assigned Musculoskeletal Provider 08/07/24 documented as of this encounter
--- OUTSIDE RECORDS SUMMARY | 2025-04-05 22:09 | XMS_ITS | Encounter Summary ---
Author Organization [facility] Address [address] [place] [address]. [place] [address] Care Team Providers Care Electro Mechanical Designer Name Role Phone Shabana Phelan PHOTOGRAMMETRY AIRPLANE PILOT Unavailable [phone] Leia Moreno DO Primary Care Provide r Leia Moreno DO Unavailable [phone] Toro Arnold MD Unavailable Toro Arnold MD Unavailable [phone] Clarke Gandhi MD Unavailable [phone] Encounter Details Date Type Department Care Team (Late st Contact Info) Description 04/27/2024 [facility] [place] [facility] [facility] [address] [place] [address] Qi Dee RN Social History Tobacco Use Types Packs/Day [...] re latives? Twice a week 04/12/2024 Attends Nondenominational Services Not on file 04/12 Active Member [...] Answer Date Recorded PHQ-2 Score 0 04/13/2024 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 Not on file documented as of this encounter Plan of Treatment Upcoming Encounters Date Type Department Care Team (Late st Contact Info) Description 04/21/2025 10:40 AM STRATEGIC COMMUNICATIONS MANAGER Office Visit [facility] [address] [place] [phone] Leia Moreno DO [address] [place] [address] documented as of this encounter Visit Diagnoses Not on filedocumented in this encounter Additional Health Concerns Infection Onset Date Last Indicated 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 02/05/2018 05/10/2024 9:57 AM STRATEGIC COMMUNICATIONS MANAGER Assessment Noted Time PHQ-9 Depression Total Score: 8 04/12/20 24 10:47 AM CDT documented as of this encounter Care Teams Electro Mechanical Designer Relationship Specialty Start Date End Date Leia Moreno DO [address] [place] [address] PCP - General Internal Medicine 12/30/22 Shabana Phelan NP [facility] [address] [place] [address] Nurse Practitioner Nurse Practitioner Psych/Mental Health 04/10/17 Leia Moreno DO [address] [place] [address] Assigned PCP 04/25/23 Toro Arnold MD [address] [place] [address] Surgeon Surgery 04/18/24 Toro Arnold MD [address] [place] [address] Assigned Surgical Provider 05/07/24 Clarke Gandhi MD [address] [place] [address] Assigned Musculoskeletal Provider 08/07/24 documented as of this encounter
--- OUTSIDE RECORDS SUMMARY | 2025-04-05 22:09 | XMS_ITS | Encounter Summary ---
Author Organization [facility] Address [address] [place] [address]. [place] [address] Care Team Providers Care Couturiere Name Role Phone Tapan Shabana Bourgeois ORACLE DATABASE ADMINISTRATOR Unavailable [phone] Leia Moreno DO Primary Care Provide r Leia Moreno DO Unavailable [phone] Toro Arnold MD Unavailable [phone] Toro Arnold MD Unavailable [phone] Clarke Gandhi MD Unavailable [phone] Encounter Details Date Type Department Care Team (Late st Contact Info) Description 04/28/2024 [facility] [place] Medical Advice [facility] [address] [place] [address] Qi Florence, RN Social History Tobacco Use Types Packs/Day [...] re latives? 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 Not on file documented as of this encounter Plan of Treatment Upcoming Encounters Date Type Department Care Team (Late st Contact Info) Description 04/21/2025 10:40 AM OBSTETRICAL NURSE Office Visit [facility] [address] [place] [address] [place] [phone] Leia Moreno DO [address] [place] [address] documented as of this encounter Visit Diagnoses Not on filedocumented in this encounter Additional Health Concerns Infection Onset Date Last Indicated 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 02/05/2018 05/10/2024 9:57 AM OBSTETRICAL NURSE Assessment Noted Time PHQ-9 Depression Total Score: 8 04/12/20 24 10:47 AM CDT documented as of this encounter Care Teams Couturiere Relationship Specialty Start Date End Date Leia Moreno DO [address] [place] [address] PCP - General Internal Medicine 12/30/22 Shabana Phelan NP [facility] [address] [place] [address] Nurse Practitioner Nurse Practitioner Psych/Mental Health 04/10/17 Leia Moreno DO [address] [place] [address] Assigned PCP 04/25/23 Toro Arnold MD [address] [place] [address] Surgeon Surgery 04/18/24 Toro Arnold MD [address] [place] [address] Assigned Surgical Provider 05/07/24 Clarke Gandhi MD [address] [place] [address] Assigned Musculoskeletal Provider 08/07/24 documented as of this encounter
--- OUTSIDE RECORDS SUMMARY | 2025-04-05 22:09 | XMS_ITS | Encounter Summary ---
Author Organization [facility] Address [address] [place] [address] Care Team Providers Care Field Crops Harvest Machine Operator Name Role Phone Shabana Phelan LOGGER ALL ROUND Unavailable [phone] Leia Moreno DO Primary Care Provide r Leia Moreno DO Unavailable Toro Arnold MD Unavailable [phone] Toro Arnold MD Unavailable [phone] Clarke Gandhi MD Unavailable Encounter Details Date Type Department Care Team (Late st Contact Info) Description 04/29/2024 [facility] Medical Advice [facility] [place] [address] [facility] [address] [place] [address] She Coyle, CONCHIS Social History [...] re latives? 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 Not on file documented as of this encounter Plan of Treatment Upcoming Encounters Date Type Department Care Team (Late st Contact Info) Description 04/21/2025 10:40 AM FIELD INSPECTOR Office Visit [facility] [address] [place] [phone] Leia Moreno DO [address] [place] [address] documented as of this encounter Goals Goal [...] Time MRSA 02/05/2018 02/05/2018 05/10/2024 9:57 AM FIELD INSPECTOR Assessment Noted Time PHQ-9 Depression Total Score: 8 04/12/20 24 10:47 AM CDT documented as of this encounter Care Teams Field Crops Harvest Machine Operator Relationship Specialty Start Date End Date Leia Moreno DO [address] [place] [address] PCP - General Internal Medicine 12/30/22 Shabana Phelan NP [facility] [address] [place] [address] Nurse Practitioner Nurse Practitioner Psych/Mental Health 04/10/17 Leia Moreno DO [address] [place], [place] [id number] Assigned PCP 04/25/23 Toro Arnold MD [address] [place] [address] Surgeon Surgery 04/18/24 Toro Arnold MD [address] [place] [address] Assigned Surgical Provider 05/07/24 Clarke Gandhi MD [address] [place] [address] Assigned Musculoskeletal Provider 08/07/24 documented as of this encounter
--- OUTSIDE RECORDS SUMMARY | 2025-04-05 22:10 | XMS_ITS | Encounter Summary ---
Author Organization [facility] Address [address] [place] [address] Care Team Providers Care Video Production Intern Name Role Phone TapanShabana Christelle HUERTA Unavailable [phone] Stewart Alfaro MD Unavailable Raquel Hernandez MD Primary Care Provider Raquel Hernandez MD Unavailable David Chu PA-C Unavailable Leia Moreno DO Primary Care Provide r Cb Hernández MD Unavailable Unavail able Cb Hernández MD Unavailable Unavail able Leia Moreno DO Unavailable Toro Arnold MD Unavailable [phone] Toro Arnold MD Unavailable [phone] Clarke Gandhi MD Unavailable [phone] Reason for Visit * Reason Comments Medication Refill Encounter Details Date Type Department Care Team (Late st Contact Info) Description 11/09/2020 [facility] [address] [place] [address] [place] [phone] Sweetie Burnett MD [address] [place] [address] Medication Refill Social History Tobacco Use Types Packs/Day Years Used Date Smoking Tobacco: Never Smokeless Tobacco: Never Alcohol Use Standard Drinks/Week Comments Yes 0 (1 standard drink = 0.6 oz pur e alcohol) rarely PHQ-2 Answer Date Recorded PHQ-2 Score 0 11/06/2020 Comments No Sex and Gender Information Value Date Recorded Sex Assigned at Female 06/28/2018 5:01 AM LOAN REVIEWER Legal Sex Female 3:40 AM LOAN REVIEWER Gender Identity Female 05/25/2018 3:53 PM LOAN REVIEWER Sexual Orientation Straight 04/24/2021 4: 48 PM LOAN REVIEWER 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 No / Unsure 11/06/2020 9:57 AM CDT documented as of this encounter Miscellaneous Notes * Telephone Encounter - Miranda Appiah RN - 11/09/2020 11:17 AM CDT Pending Prescriptions: Disp Refills montelukast (SINGULAIR) 10 MG tablet [Phar*90 tab*3 Sig: TAKE 1 TABLET BY MOUTH EVERY DAY atorvastatin (LIPITOR) 20 MG tablet [Pharm*90 tab*0 Sig: TAKE 1 TABLET BY MOUTH EVERY DAY documented in this encounter Plan of Treatment Upcoming Encounters Date Type Department Care Team (Late st Contact Info) Description 04/21/2025 10:40 AM LOAN REVIEWER Office Visit [facility] [address] [facility] [address] [place] [phone] Leia Moreno DO [address] [facility] [place], [place] [phone] documented as of this encounter Visit Diagnoses Diagnosis Seasonal allergic rhinitis, unspecified trigger- Primary 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 Hyperlipidemia LDL goal <130 Other and unspecified hyperlipidemia documented in this encounter Additional Health Concerns Infection Onset Date Last Indicated 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 02/05/2018 05/10/2024 9:57 AM LOAN REVIEWER Assessment Noted Time PHQ-9 Depression Total Score: 2 11/07/19 11:11 AM CDT documented as of this encounter Care Teams Video Production Intern Relationship Specialty [place] [address] [place] [address] PCP - General Family Medicine 11/06/20 12/29/22 Leia Moreno DO [address] [place] [address] PCP - General Internal Medicine 12/30/22 Shabana Phelan NP [address] [address] Nurse Practitioner Nurse Practitioner Psych/Mental Health 04/10/17 [place] [id number] [place] [address] Assigned Musculoskeletal Provider 04/06/20 12/25/20 [place] [address] [place] [address] Assigned PCP 11/08/20 03/13/23 David Chu PA-C [id number] [place] [address] [address] [place] [address] Assigned Musculoskeletal Provider 12/28/20 05/11/21 Cb Hernández MD Assigned PCP 03/14/23 04/03/23 Cb Hernández MD Assigned PCP 04/11/23 04/17/23 Leia Moreno DO [address] [place] [address] Assigned PCP 04/25/23 Toro Anrold MD [address] [place] [address] Surgeon Surgery 04/18/24 Toro Arnold MD [address] [place] [address] Assigned Surgical Provider 05/07/24 Clarke Gandhi MD [address] [place] [address] Assigned Musculoskeletal Provider 08/07/24 documented as of this encounter
--- OUTSIDE RECORDS SUMMARY | 2025-04-05 22:10 | XMS_ITS | Clinical Summary ---
Author Organization [facility] Address [address] [place] [address]. [place] [address] Care Team Providers Care Employment Programs Analyst Name Role Phone TapanShabana MONORAIL CHARGER OPERATOR Unavailable [phone] Leia Moreno DO Primary Care Provide r Leia Moreno DO Unavailable Toro Arnold MD Unavailable Toro Arnold MD Unavailable [phone] Clarke Gandhi MD Unavailable [phone] Allergies Active Allergy Reactions Criticality Noted Date Comments Ciprofloxacin Rash Low 02/12/2012 Doxycycline Rash Low 02/17/2014 Erythromycin Nausea and Vomiting 12/20/2001 Hydrocodone Headache 05/14/2015 Levaquin 02/12/2012 archilles tendon tear Sulfa Antibiotics Rash Low 02/12/2012 Nuts Rash Low 06/17/2024 Medications MULTI-VITAMIN OR TABSIndications:A cute maxillary sinusitis,Acute bronchitis 1 TABLET DAILY Acti ve Cholecalciferol (VITAMIN D-3) 5000 UNITS TABS Take 1 tablet by mouth daily Active cetirizine (ZYRTEC) 10 MG tablet Take 10 mg by mouth daily. Active fluticasone (FLONASE) 50 MCG/ACT nasal sprayIndications: Acute maxillary sinusitis [place] 1-2 sprays into both nostrils daily 1 Package 11 014 Active Cyanocobalamin (VITAMIN B 12 PO) Take 5,000 mcg by mouth Sublingual once day Active ferrous sulfate (IRON) 325 (65 FE) MG tablet Take 325 mg by mouth daily (with breakfast) Active clindamycin (CLINDAMAX) 1 % external gel 020 Active spironolactone (ALDACTONE) 25 MG tablet Take 25 mg by mouth 2 times daily 022 Active Calcium-Magnesium 166.67-83.33 MG TABS Take 2 tablets by mouth daily Active amphetamine-dextr oamphetamine (ADDERALL) 20 MG tablet TAKE 1 TABLET BY MOUTH TWICE DAILY (ABOUT 6 HOURS APART) 023 Active azelastine (ASTELIN) 0.1 % nasal sprayIndications: Acute non-recurrent frontal sinusitis,Seasona l allergic rhinitis, unspecified trigger [place] 1 spray into both nostrils 2 times daily 30 mL 3 023 Active atorvastatin (LIPITOR) 20 MG tabletIndications :Hyperlipidemia LDL goal <130 Take 1 tablet (20 mg) by mouth daily. 90 tablet 3 024 Active DULoxetine (CYMBALTA) 60 MG capsuleIndication s:Anxiety state 60mg in am along with 30 mg in pm 90 capsule 3 024 Active montelukast (SINGULAIR) 10 MG tabletIndications :Seasonal allergic rhinitis, unspecified trigger Take 1 tablet (10 mg) by mouth daily. 90 tablet 3 024 Active DULoxetine (CYMBALTA) 30 MG capsuleIndication s:MORRO (generalized anxiety disorder) 30 mg in pm along with 60 mg in am . 90 capsule 3 024 Active fish oil-omega-3 fatty acids 1000 MG capsule Take 2 g by mouth daily. Active oxyCODONE (ROXICODONE) 5 MG tabletIndications :Left upper quadrant abdominal mass Take 1-2 tablets (5-10 mg) by mouth every 4 hours as needed for moderate to severe pain. 6 tablet 025 Active acetaminophen (TYLENOL) 325 MG tabletIndications :Left upper quadrant abdominal mass Take 2 tablets (650 mg) by mouth every 4 hours as needed for mild pain. 50 tablet 025 Active senna-docusate (SENOKOT-S/KEELY LACE) 8.6-50 MG tabletIndications :Left upper quadrant abdominal mass Take 1-2 tablets by mouth 2 times daily. 30 tablet 025 Active ibuprofen (ADVIL/MOTRIN) 400 MG tabletIndications :Left upper quadrant abdominal mass Take 1 tablet (400 mg) by mouth every 6 hours as needed. 30 tablet 025 Active SYNTHROID 112 MCG tabletIndications :Acquired hypothyroidism TAKE 1 TABLET DAILY FOR HYPOTHYROIDISM 90 tablet 3 025 Active SYNTHROID 112 MCG tabletIndications :Acquired hypothyroidism Take 1 tablet (112 mcg) by mouth daily. 90 tablet 3 024 2024 Discontinued Active Problems Problem Noted Date Diagnosed Date ADHD (attention deficit hyperactivity disorder) 07/28/2022 12/30/2022 Personal history of malignant neoplasm of breast 05/11/2020 Overview (05/11/2020): 2008, s/p bilateral mastectomies, BRCA negative Panic disorder 04/09/2017 Generalized anxiety disorder 04/09/2017 History of gastric bypass 05/04/2014 HYPERLIPIDEMIA LDL GOAL <130 04/14/2010 Allergic rhinitis 11/11/2006 Overview (04/10/2017): Problem list name updated by automated process. Provider to review Hypothyroidism 04/29/2004 Overview (04/10/2017): Problem list name updated by automated process. Provider to review Resolved Problems Problem Noted Date Diagnosed Date Resolved Date Methicillin resistant Staphy lococcus aureus infection 02/09/2018 10/26/2019 Major depressive disorder, r ecurrent episode, moderate 04/10/2017 08/26/2021 Coronary artery disease invo lving osage coronary artery of osage heart without angina pectoris 09/24/2016 12/30/2022 12/30/2022 Overview (12/30/2022): Subclinical, 2013, CA score 6, 84% (negative stress echo) Seasonal affective disorder 06/17/2014 08/26/2021 Obesity 2014 07/26/2014 History of right breast canc er s/p bilateral mastectomy 11/11/2006 04/13/2024 Overview (12/30/2022): Had Chemotherapy and Bilateral Mastectomies. BRCA Negative. Problem list name updated by automated process. Provider to review Anxiety state 03/16/2006 04/10/2017 Overview (03/15/2015): Problem list name updated by automated process. Provider to review PURE HYPERCHOLESTEROLEM 05/10/200207/16 Other anxiety states 05/10/2002 006 Encounters Date Type Department Care Team Description 03/18/[address] [facility] [address] [place] [address] [address] [place] [address] Leia Moreno, DO Medication Refill 02/23/[address] [facility] [address] [place] [address] [address] [place] [address] Leia Moreno, DO Medication Refill from Last 3 Months Immunizations Immunization Administration Dates Next Due Influenza (H1N1) 07/13/2009 Influenza (IIV3) PF 03/15/2019, 1,03/09/2009,2007,04/22/1999,05/08/1998 Influenza Vaccine, 6+MO IM (QUADRIVALENT W/PRESERVATIVES) 03/25/2017,02/13/2016 TDAP Vaccine (Adacel) 06/03/2017,01/27/2007 Family History Medical History Relation Comments Asthma Daughter 1 Preeclampsia Daughter 2 Cancer Father Cardiovascular Father Born 1943, cad Colon Cancer Father 70's Hyperlipidemia Father Cancer Maternal Grandfather lung Cancer - colorectal Maternal Grandfather Cardiovascular Maternal Grandfather triple bypa ss Colon Cancer Maternal Grandfather Cerebrovascular Disease Maternal Grandmother Diabetes Mother Hypertension Mother Born 1944 Kidney Disease Mother on peritoneal di alysis Osteoporosis Mother Cancer Paternal Grandfather bladder Cardiovascular Paternal Grandfather Cancer Paternal Grandmother bone Hyperlipidemia Paternal Grandmother Lipids Paternal Grandmother Breast Cancer Sister 1 Hypertension Sister 1 Hypertension Sister 2 Anesthesia Reaction No family hx of Relation Status Comments Daughter 1 Daughter 2 Alive Father Alive Maternal Grandfather Maternal Grandmother Mother Alive Paternal Grandfather Paternal Grandmother Sister 1 Sister 2 Alive Social History Tobacco Use Types Packs/Day Years Used Date Smoking Tobacco: Never Smokeless Tobacco: Never Tobacco Cessation:Counseling Given: Not Answered Alcohol Use Standard Drinks/Week Comments Yes 0 [...] Answer Date Recorded PHQ-2 Score 0 06/06/2024 [facility] - Occupational Stress [...] in an abandoned building, in an overnight half-way, or couch-surfing.) Yes 04/12/2024 Are you worried [...] motionally safe where you currently live? Yes 06/22/2024 Within the past 12 months, h ave you been hit, slapped, kicked or otherwise physically hurt by someone? No 06/22/2024 Within the past 12 months, h ave you been humiliated or emotionally abused in other ways by your partner or ex-partner? 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 Not on file Not on file Last Filed Vital Signs Vital Sign Reading Time Taken Comments Blood Pressure 130/88 06/22/2024 11:35 AM EGG SEPARATOR Pulse 105 06/22/2024 11:35 AM EGG SEPARATOR Temperature 36.8 C (98.2 F) 06/22/2024 11:35 AM EGG SEPARATOR Respiratory Rate 12 06/22/2024 11:35 AM EGG SEPARATOR Oxygen Saturation 92% 06/22/2024 11:35 AM EGG SEPARATOR Inhaled Oxygen Concentration - - Weight 55.4 kg (122 lb 1.6 oz) 08/01/2024 11:26 AM EGG SEPARATOR Height 153.7 cm (5' 0.51) 08/01/2024 11:26 AM [place] GOVEA Body Mass Index 23.44 08/01/2024 11:26 AM EGG SEPARATOR Plan of Treatment Upcoming Encounters Date Type Department Care Team (Late st Contact Info) Description 04/21/2025 10:40 AM EGG SEPARATOR Office Visit [facility] [address] [place] [phone] Leia Moreno DO [address] [place], [place] [id number] Health Maintenance Due Date Last Done Comments CT COLONOGRAPHY 1965 FIT 1965 FLEX SIG 1965 sDNA (Cologuard) 1965 PNEUMOCOCCAL VACCINE 50+ YEARS (1 of 1 - PCV) 2017 ZOSTER VACCINE (1 of 2) 2017 PHQ-9 12/05/2024 06/06/2024, 03/17, 04/13/2023, Additional history exists COVID-19 VACCINE ( - season) 2025 INFLUENZA VACCINE (#1) 2025 9, 07/09/2018 (Declined), 03/25/2017, Additional history exists LIPID 04/13/2025 04/13/2024, 06/0 06/2022, 05/15/2021, Additional history exists TSH W/FREE T4 REFLEX 04/13/2025 04/13/2024, 04/13/2024, 10/23/2023, Additional history exists YEARLY PREVENTIVE VISIT 04/13/2025 04/13/20 24, 04/13/2023, 10/22/2022, Additional history exists ANNUAL REVIEW OF HM ORDERS 06/06/202506/06, 08/28/2022, 11/06/2020 MORRO ASSESSMENT 06/06/2025 06/06/2024, 03/17, 12/30/2022, Additional history exists DIABETES SCREENING 04/13/2027 04/13/2024, 1 , 11/18/2023, Additional history exists DTAP/TDAP/TD VACCINE (3 - Td or Tdap) 06/03/2027 06/03/2017, 01/27/2007 COLONOSCOPY 05/10/2029 05/10/2024, 04/16, 02/04/2019, Additional history exists COLORECTAL CANCER SCREENING 05/10/2029 ADVANCE CARE PLANNING 06/06/2029 06/06/2024 , 04/13/2024, 12/30/2022, Additional history exists PAP Discontinued 12/09/2011 DEPRESSION ACTION PLAN Completed 05/07/2021 HEPATITIS C SCREENING Completed 05/15/2021 HIV SCREENING Completed 05/15/2021 HEPATITIS B VACCINE Discontinued HPV VACCINE (No Doses Required) Completed MENINGITIS VACCINE Aged Out No longer eligible based on patient's age to complete this topic Goals Goal Patient Goal Type Associated Problems Recent Progress Patient-Stated? Author MYC ECC SURG ENROLL Care Plan MyC ECC SURG ENROLL No Juan Esthela M [employer] Implanted Type Area Indian Blanket Weaver Device Identifier Shelf Expiration Date Model / Serial / Lot Mesh Composite Parietene Ds [id number] - [id number] Implanted:Qt y: 1 on 06/22/2024 by Toro Arnold MD at [facility] Mesh N/A: Abdomen COVIDIEN [id number] 08/12/2026 [id number] / / [id number] Cutter Endo [place] 60 Long Pwr [id number] Implanted:Qt y: 4 on 02/21/2014 Metallic Hardware/An chor N/A: Abdomen [employer] 02/21/2019 [id number] / / [id number] Reload [place] 60mm 1.5mm Blue [id number] Implanted:Qt y: 1 on 02/21/2014 Metallic Hardware/An chor N/A: Abdomen [employer] 11/21/2018 [id number] / / [id number] Reload [place] 60mm 1.0mm White [id number] Implanted:Qt y: 2 on 02/21/2014 Metallic Hardware/An chor N/A: Abdomen [employer] [id number] / / [id number] Procedures Procedure Name Priority Date/Time Associated Diagnosis Comments COLONOSCOPY Routine 05/10/2024 11:16 AM EGG SEPARATOR HEMOGLOBIN A1C Routine 04/13/2024 11:35 AM CDT Routine general medical examination at a health care facility T4 FREE Routine 04/13/2024 11:35 AM CDT Acquired hypothyroidism LIPID REFLEX TO DIRECT LDL PANEL Routine 04/13/2024 11:35 AM CDT Hyperlipidemia LDL goal <130 Routine general medical examination at a health care facility HIV ANTIGEN ANTIBODY COMBO Routine 05/15/2021 10:26 AM EGG SEPARATOR Screening for HIV (human immunodeficiency virus) HEPATITIS C SCREEN REFLEX TO HCV RNA QUANT AND GENOTYPE Routine 05/15/2021 10:26 AM EGG SEPARATOR Need for hepatitis C screening test ABSTRACT PAP (HIM EXTERNAL RESULT) Routine 12/09/2011 DIAGNOSIS NOT YET DEFINED from Last 3 Months or Most Recently Relevant to Health Maintenance Results * COLONOSCOPY (05/10/2024 11:16 AM EGG SEPARATOR) COLONOSCOPY [facility] Patient Name: Coretta Beavers Procedure Date: 05/10/2024 11:16 AM Date of : 1965 Admit Type: Outpatient Age: 59 Gender: Female Attending MD: VINAYAK COMER MD, Total Sedation Time: 29_minutes continuous bedside 1:1 Instrument Name: 254 - Pediatric Colonoscope Procedure: Colonoscopy Indications: Screening for colon cancer: Family history of colorectal cancer in multiple 2nd degree relatives, Screening patient at increased risk: Family history of 1st-degree relative with colorectal cancer at age 60 years (or older) Providers: VINAYAK COMER MD (Doctor) Referring MD: LEIA MORENO MD (Referring MD) Medicines: Midazolam 5 mg IV, Fentanyl 250 micrograms IV Complications: No immediate complications. Procedure: Pre-Anesthesia Assessment: - Prior to the procedure, a History and Physical was performed, and patient medications and allergies were reviewed. The patient is competent. The risks and benefits of the procedure and the sedation options and risks were discussed with the patient. All questions were answered and informed consent was obtained. Patient identification and proposed procedure were verified by the physician in the procedure room. Mental Status Examination: alert and oriented. Airway Examination: normal oropharyngeal airway and neck mobility. Respiratory Examination: clear to auscultation. CV Examination: normal. Prophylactic Antibiotics: The patient does not require prophylactic antibiotics. Prior Anticoagulants: The patient has taken no anticoagulant or antiplatelet agents. ASA Grade Assessment: II - A patient with mild systemic disease. After reviewing the risks and benefits, the patient was deemed in satisfactory condition to undergo the procedure. The anesthesia plan was to use moderate sedation / analgesia (conscious sedation). Immediately prior to administration of medications, the patient was re-assessed for adequacy to receive sedatives. The heart rate, respiratory rate, oxygen saturations, blood pressure, adequacy of pulmonary ventilation, and response to care were monitored throughout the procedure. The physical status of the patient was re-assessed after the procedure. After obtaining informed consent, the colonoscope was passed under direct vision. Throughout the procedure, the patient's blood pressure, pulse, and oxygen saturations were monitored continuously. The Olympus Pediatric Colonoscope Model #[id number]-II413M, Censitrac # [id number] was introduced through the anus and advanced to the terminal ileum, with identification of the appendiceal orifice and IC valve. The colonoscopy was performed without difficulty. The patient tolerated the procedure. The quality of the bowel preparation was good. The terminal ileum, ileocecal valve, appendiceal orifice, and rectum were photographed. Findings: The perianal and digital rectal examinations were normal. The terminal ileum appeared normal. The entire examined colon appeared normal on direct and retroflexion views. There was a tortuous colon and she needed a lot of drugs for her discomfort. Impression: - The examined portion of the ileum was normal. - The entire examined colon is normal on direct and retroflexion views. - No specimens collected. Recommendation: - Repeat colonoscopy in 5 years for surveillance.use propofol Procedure Code(s): --- Professional --- G0105, Colorectal cancer screening; colonoscopy on individual at high risk Diagnosis Code(s): --- Professional --- Z80.0, Family history of malignant neoplasm of digestive organs CPT copyright 2021 [employer]. All rights reserved. The codes documented in this report are preliminary and upon market stall vendor review may be revised to meet current compliance requirements. Electronically signed by Vinayak Comer MD __ VINAYAK COMER MD 05/10/2024 11:55:51 AM I was physically present for the entire viewing portion of the exam. VINAYAK COMER MD Number of Addenda: 0 Note Initiated On: 05/10/2024 11:16 AM Procedure Date: 05/10/2024 11:16:58 AM Scope Withdrawal Time: 0 hours 6 minutes 3 seconds Total Procedure Duration: 0 hours 27 minutes 51 seconds Estimated Blood Loss: Scope In: 11:22:57 AM Scope Out: 11:50:48 AM RADIOLOGY RESULTS 05/10/2024 11:1 6 AM EGG SEPARATOR Leia Moreno DO PROCEDURES Final Result RADIOLOGY RESULTS * (ABNORMAL) T4, free (04/13/2024 11:35 AM CDT) Free T4 1.80(H) 0.90 - 1.70 ng/dL 04/13/2024 11:20 PM CDT [facility] Blood STRUCTURE OF LEFT UPPER LIMB / Unknown Venipuncture / Unknown 04/13/2024 11:35 AM CDT 04/13/2024 11:35 AM CDT Leia Moreno DO LAB - BLOOD ORDERABLE S Final Result [facility] [place] [facility] [address] [facility], [address] [place] [phone] * Lipid panel reflex to direct LDL Non-fasting (04/13/2024 11:35 AM CDT) Cholesterol 142 <200 mg/dL 04/13/2024 11:20 PM CDT [facility] Triglycerides 36 <150 mg/dL 04/13/2024 11:20 PM CDT [facility] Direct Measure HDL 74 >=50 mg/dL 2023 11:20 PM CDT [facility] LDL Cholesterol Calculated 61 <100 mg/dL 04/13/2024 11:20 PM CDT [facility] Non HDL Cholesterol 68 <130 mg/dL 04/13/2024 11:20 PM CDT [facility] Patient Fasting > 8hrs? No 04/13/2024 11:20 PM CDT [facility] Blood STRUCTURE OF LEFT UPPER LIMB / Unknown Venipuncture / Unknown 04/13/2024 11:35 AM CDT 04/13/2024 11:35 AM CDT Narrative [facility] - 04/13/2024 11:20 PM CDT Cholesterol Desirable: < 200 mg/dL Borderline High: 200 - 239 mg/dL High: >= 240 mg/dL Triglycerides Normal: < 150 mg/dL Borderline High: 150 - 199 mg/dL High: 200-499 mg/dL Very High: >= 500 mg/dL Direct Measure HDL Female: >= 50 mg/dL Male: >= 40 mg/dL LDL Cholesterol Desirable: < 100 mg/dL Above Desirable: 100 - 129 mg/dL Borderline High: 130 - 159 mg/dL High: 160 - 189 mg/dL Very High: >= 190 mg/dL Non HDL Cholesterol Desirable: < 130 mg/dL Above Desirable: 130 - 159 mg/dL Borderline High: 160 - 189 mg/dL High: 190 - 219 mg/dL Very High: >= 220 mg/dL us Leia Moreno DO LAB - BLOOD ORDERABLE S Final Result [facility] [place] [facility] [address] [facility], [address] [phone] * (ABNORMAL) Hemoglobin A1c (04/13/2024 11:35 AM CDT) Pathologist [facility] Estimated Average Glucose 117(H) <117 mg/dL 04/13/2024 11:45 AM CDT [facility] Hemoglobin A1C 5.7(H) 0.0 - 5.6 % 04/13/2024 11:45 AM CDT [facility] Comment: Normal <5.7% Prediabetes 5.7-6.4% Diabetes 6.5% or higher Note: Adopted from ADA consensus guidelines. Blood STRUCTURE OF LEFT UPPER LIMB / Unknown Venipuncture / Unknown 04/13/2024 11:35 AM CDT 04/13/2024 11:35 AM CDT us Leia Moreno DO LAB - BLOOD ORDERABLE S Final Result [facility] [address] [facility] [address] [phone] * HIV Antigen Antibody Combo (05/15/2021 10:26 AM EGG SEPARATOR) Pathologist [facility] HIV Antigen Antibody Combo Nonreactive Nonreactive 05/16/2021 11:08 AM EGG SEPARATOR [facility] Comment:HIV-1 p24 Ag & HIV-1 /HIV-2 Ab Not Detected Blood STRUCTURE OF LEFT UPPER LIMB / Unknown Venipuncture / Unknown 05/15/2021 10:26 AM EGG SEPARATOR 05/15/2021 10:26 AM EGG SEPARATOR Raquel Hernandez MD LAB - BLOOD ORDERABLES Final Res ult [facility] [address] [facility], [address] [place] [address], [facility] [phone] * Hepatitis C Screen Reflex to HCV RNA Quant and Genotype (05/15/2021 10:26 AM EGG SEPARATOR) Hepatitis C Antibody Nonreactive Nonreactive 05/16/2021 11:08 AM EGG SEPARATOR [facility] Blood STRUCTURE OF LEFT UPPER LIMB / Unknown Venipuncture / Unknown 05/15/2021 10:26 AM EGG SEPARATOR 05/15/2021 10:26 AM EGG SEPARATOR Narrative [facility] - 05/16/2021 11:08 AM EGG SEPARATOR Assay performance characteristics have not been established for newborns, infants, and children. Raquel Hernandez MD LAB - BLOOD ORDERABLES Final Res ult [facility] [address] [facility], [address] [place] [address], [facility] [phone] * ABSTRACT PAP-NO CHARGE (12/09/2011) Impressions MISYS - 12/09/2011 Information from office visit dated: 04/26/2012 Message PAP 12/09/2011-Clinci Lauren-wnl us Provider Abstract LAB - HIM EXTERNAL RESULT Ambar main Result MISYS from Last 3 Months or Most Recently Relevant to Health Maintenance Additional Health Concerns Active Problems Noted Date Diagnosed Date MyC ECC SURG ENROLL 04/29/2024 [facility] Guarantor: Coretta Beavers Account Type Relation to Patient Date of Phone Billing Address Medication Therapy Self 1965 [id number] [address] [place] [address] Care Teams Employment Programs Analyst Relationship Specialty Start Date End Date Leia Moreno DO [address] [place] [address] PCP - General Internal Medicine 12/30/22 Shabana Phelan NP [facility] [address] [place] [address] Nurse Practitioner Nurse Practitioner Psych/Mental Health 04/10/17 Leia Moreno DO [address] [place] [address] Assigned PCP 04/25/23 Toro Arnold MD [address] [place] [address] Surgeon Surgery 04/18/24 Toro Arnold MD [address] [place] [address] Assigned Surgical Provider 05/07/24 Clarke Gandhi MD [address] [place] [address] Assigned Musculoskeletal Provider 08/07/24
--- OUTSIDE RECORDS SUMMARY | 2025-04-05 22:10 | XMS_ITS | Encounter Summary ---
Author Organization [place] Address [address] [place] [address]. [place] [address] Care Team Providers Care Forklift Wheel Loader Name Role Phone Shabnaa Phelan SOFTWARE QUALITY ASSURANCE ENGINEER Unavailable [phone] Leia Moreno DO Primary Care Provide r Leia Moreno DO Unavailable Toro Arnold MD Unavailable Toro Arnold MD Unavailable [phone] Clarke Gandhi MD Unavailable [phone] Reason for Visit * Reason Comments Medication Refill Encounter Details Date Type Department Care Team (Late st Contact Info) Description 02/23/2025 [place] [address] [facility] [address] [place] [address] Leia Moreno DO [address] [facility] [address] [place], [place] [id number] Medication Refill Social History Tobacco Use Types [...] re latives? 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 Author MYC ECC SURG ENROLL Care Plan MyC ECC SURG ENROLL No Esthela Juan documented as of this encounter Visit Diagnoses Diagnosis Seasonal allergic rhinitis, unspecified trigger documented in this encounter Additional Health Concerns Active Problems Noted Date Diagnosed Date MyC ECC SURG ENROLL 04/29/2024 Assessment Noted Time PHQ-9 Depression Total Score: 7 06/06/20 24 3:14 PM ORACLE WEBCENTER CONSULTANT documented as of this encounter Care Teams Forklift Wheel Loader Relationship Specialty Start Date End Date Leia Moreno DO [address] [place] [address] PCP - General Internal Medicine 12/30/22 Shabana Phelan NP [facility] [address] [place] [address] Nurse Practitioner Nurse Practitioner Psych/Mental Health 04/10/17 Leia Moreno DO [address] [place], [place] [id number] Assigned PCP 04/25/23 Toro Arnold MD [address] [place] [address] Surgeon Surgery 04/18/24 Toro Arnold MD [address] [place] [address] Assigned Surgical Provider 05/07/24 Clarke Gandhi MD [address] [facility] [address] [place] [address] Assigned Musculoskeletal Provider 08/07/24 documented as of this encounter
--- OUTSIDE RECORDS SUMMARY | 2025-04-05 22:10 | XMS_ITS | Encounter Summary ---
Author Organization [place] Address [address] [place] [address] Care Team Providers Care Information Services Tech Name Role Phone Sweetie Burnett MD Primary Care Provider [phone] TapanShabana casanova NP Unavailable [phone] Sweetie Burnett MD Unavailable [phone] Sweetie Burnett MD Unavailable [phone] Nikkie Jacques [facility] Unavailable [phone] Nery Matos [facility] Unavailable [phone] Stewart Alfaro MD Unavailable Miranda Liao MD Unavailable Unavailable Raquel Hernandez MD Primary Care Provider Vlad Walsh MD Unavailable Raquel Hernandez MD Unavailable David Chu PA-C Unavailable Leia Moreno DO Primary Care Provide r Cb Hernández MD Unavailable Unavail able Cb Hernández MD Unavailable Unavail able Leia Moreno DO Unavailable Toro Arnold MD Unavailable [phone] Toro Arnold MD Unavailable [phone] Clarke Gandhi MD Unavailable [phone] Encounter Details Date Type Department Care Team (Latest Contact Info) Description 02/11/2017 Historic Results Social History Tobacco Use Types Packs/Day Years Used Date Smoking Tobacco: Never Smokeless Tobacco: Never Alcohol Use Standard Drinks/Week Comments Yes 0 (1 standard drink = 0.6 oz pure alcohol) once per month- 5 times per year approx Comments No Sex and Gender Information Value Date Recorded Sex Assigned at Female 06/28/2018 5:01 AM PAPER INSERTER Legal Sex Female 3:40 AM PAPER INSERTER Gender Identity Female 05/25/2018 3:53 PM PAPER INSERTER Sexual Orientation Straight 04/24/2021 4: 48 PM PAPER INSERTER 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 Not on file Not on file documented as of this encounter Plan of Treatment Upcoming Encounters Date Type Department Care Team (Late st Contact Info) Description 04/21/2025 10:40 AM PAPER INSERTER Office Visit [facility] [address] [facility] [address] [place] [address] Leia Moreno, [address] [place] [address] documented as of this encounter Visit Diagnoses Not on filedocumented in this encounter Additional Health Concerns Infection Onset Date Last Indicated 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 02/05/2018 05/10/2024 9:57 AM PAPER INSERTER Rule Out COVID-19 10/30/2019 10/30/2019 10/31/2019 1:08 PM CDT Assessment Noted Time PHQ-9 Depression Total Score: 17 017 10:57 AM CDT documented as of this encounter Care Teams Information Services Tech Relationship Specialty Start Date End Date Sweetie Burnett MD PCP - General Internal Medicine 07/03/16 11/05/20 Sweetie Burnett MD [address] [place] [address] PCP - Assigned PCP 02/15/17 08/17/18 [place] [address] [place] [address] PCP - General Family Medicine 11/06/20 12/29/22 Leia Moreno DO [address] [place] [address] PCP - General Internal Medicine 12/30/22 Shabana Phelan NP [facility] [address] [place], [place] [address] Nurse Practitioner Nurse Practitioner Psych/Mental Health 04/10/17 Sweetie Burnett MD [address] [place] [address] Assigned PCP 02/15/17 09/08/20 Nikkie Jacques, [facility] [address] [place] [address] [address] [place], [place] 40[address] Pharmacist Pharmacist 08/18/19 10/24/20 Nery Matos [facility] [address] [place], [place] [address] Pharmacist Pharmacist 02/13/20 10/24/20 [place] [address] [facility] [address] [place] [address] Assigned Musculoskeletal Provider 04/06/20 12/25/20 Miranda Liao MD INACTIVE IN [place] 05/14/2024 Assigned PCP 09/09/20 10/13/20 Vlad Walsh MD [address] [place] [address] Assigned PCP 10/14/20 11/07/20 [place] [address] [place] [address] Assigned PCP 11/08/20 03/13/23 David Chu, PA-C [address] [facility] [address] [place] [address] Assigned Musculoskeletal Provider 12/28/20 05/11/21 Cb Hernández MD Assigned PCP 03/14/23 04/03/23 Cb Hernández MD Assigned PCP 04/11/23 04/17/23 Leia Moreno DO [address] [place] [address] Assigned PCP 04/25/23 Toro Arnold MD [address] [place] [address] Surgeon Surgery 04/18/24 Toro Arnold MD [address] [place] [address] Assigned Surgical Provider 05/07/24 Clarke Gandhi MD [address] [place] [address] Assigned Musculoskeletal Provider 08/07/24 documented as of this encounter
--- OUTSIDE RECORDS SUMMARY | 2025-04-05 22:10 | XMS_ITS | Encounter Summary ---
Author Organization [place] Address [address] [place] [address] Care Team Providers Care Criminal Analyst Name Role Phone Sweetie Burnett MD Primary Care Provider [phone] [facility] Un[facility] [phone] Sweetie Burnett MD Unavailable [phone] Nikkie Jacques [facility] Unavailable Nery Matos [facility] Unavailable [phone] Stewart Alfaro MD Unavailable Miranda Liao MD Unavailable Unavailable Raquel Hernandez MD Primary Care Provider Vlad Walsh MD Unavailable Raquel Hernandez MD Unavailable David Chu PA-C Unavailable Leia Moreno DO Primary Care Provide r Cb Hernández MD Unavailable Unavail able Cb Hernández MD Unavailable Unavail able Leia Moreno DO Unavailable Toro Arnold MD Unavailable [phone] Toro Arnold MD Unavailable [phone] Clarke Gandhi MD Unavailable [phone] Reason for Visit * Reason Comments Medication Refill Encounter Details Date Type Department Care Team (Late st Contact Info) Description 05/20/2020 Refill [place] [address] [place] [phone] Sweetie Burnett MD [address] [place] [address] Medication Refill Social History Tobacco Use Types Packs/Day Years Used Date Smoking Tobacco: Never Smokeless Tobacco: Never Alcohol Use Standard Drinks/Week Comments Yes 0 (1 standard drink = 0.6 oz pur e alcohol) rarely PHQ-2 Answer Date Recorded PHQ-2 Score 0 10/26/2019 Comments No Sex and Gender Information Value Date Recorded Sex Assigned at Female 06/28/2018 5:01 AM ACCOUNTING POLICY CONSULTANT Legal Sex Female 3:40 AM ACCOUNTING POLICY CONSULTANT Gender Identity Female 05/25/2018 3:53 PM ACCOUNTING POLICY CONSULTANT Sexual Orientation Straight 04/24/2021 4: 48 PM ACCOUNTING POLICY CONSULTANT 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 Unable to assess 05/11/2020 7:54 AM ACCOUNTING POLICY CONSULTANT documented as of this encounter Miscellaneous Notes * Telephone Encounter - Geetha Duran RN - 05/22/2020 10:29 AM CST Medication refilled per [facility] protocol Geetha Duran RN UNTING POLICY CONSULTANT documented in this encounter Plan of Treatment Upcoming Encounters Date Type Department Care Team (Late st Contact Info) Description 04/21/2025 10:40 AM ACCOUNTING POLICY CONSULTANT Office Visit [facility] [address] [facility] [address] [place] [phone] Leia Moreno DO [address] [place], [place] [phone] documented as of this encounter Visit Diagnoses Diagnosis Anxiety state Anxiety state, unspecified documented in this encounter Additional Health Concerns Infection Onset Date Last Indicated 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 02/05/2018 05/10/2024 9:57 AM ACCOUNTING POLICY CONSULTANT Assessment Noted Time PHQ-9 Depression Total Score: 3 09/07/19 20 9:37 AM CDT documented as of this encounter Care Teams Criminal Analyst Relationship Specialty Start Date End Date Sweetie Burnett MD PCP - General Internal Medicine 07/03/16 11/05/20 [place] [address] [place] [address] PCP - General Family Medicine 11/06/20 12/29/22 Leia Moreno DO [address] [facility] [address] [place], [place] [phone] PCP - General Internal Medicine 12/30/22 Shabana Phelan NP [facility] [address] [place], [place] [phone] Nurse Practitioner Nurse Practitioner Psych/Mental Health 04/10/17 Sweetie Burnett MD [address] [address] Assigned PCP 02/15/17 09/08/20 Nikkie Jacques [facility] [address] [facility] [address] [place], [place] [address] Pharmacist Pharmacist 08/18/19 10/24/20 Nery Matos [facility] [address] [place], [place] [address] Pharmacist Pharmacist 02/13/20 10/24/20 [place] [address] [facility] 300 [place] [address] Assigned Musculoskeletal Provider 04/06/20 12/25/20 Miranda Liao MD INACTIVE IN [place] 05/14/2024 Assigned PCP 09/09/20 10/13/20 Vlad Walsh MD [address] [place] [address] Assigned PCP 10/14/20 11/07/20 [place] [address] [place] [address] Assigned PCP 11/08/20 03/13/23 David Chu, PA-C [address] [facility] 300 [place] [address] Assigned Musculoskeletal Provider 12/28/20 05/11/21 Cb Hernández MD Assigned PCP 03/14/23 04/03/23 Cb Hernández MD Assigned PCP 04/11/23 04/17/23 Leia Moreno DO [address] [place] [address] Assigned PCP 04/25/23 Toro Arnold MD [address] [place] [address] Surgeon Surgery 04/18/24 Toro Arnold MD [address] [place] [address] Assigned Surgical Provider 05/07/24 Clarke Gandhi MD [address] [facility] [address] [place] [address] Assigned Musculoskeletal Provider 08/07/24 documented as of this encounter
--- OUTSIDE RECORDS SUMMARY | 2025-04-05 22:10 | XMS_ITS | Encounter Summary ---
Author Organization [place] Address [address] [place] [address] Care Team Providers Care Sewer Tapper Name Role Phone Sweetie Burnett MD Primary Care Provider [phone] TapanShabana casanova NP Unavailable [phone] Sweetie Burnett MD Unavailable [phone] Sweetie Burnett MD Unavailable [phone] Nikkie Jacques [facility] Unavailable [phone] Nery Matos [facility] Unavailable [phone] Stewart Alfaro MD Unavailable Miranda Liao MD Unavailable Unavailable Raquel Hernandez MD Primary Care Provider Vlad Walhs MD Unavailable [phone] Raquel Hernandez MD Unavailable David Chu PA-C Unavailable [phone] Leia Moreno DO Primary Care Provide r Cb Hernández MD Unavailable Unavail able Cb Hernández MD Unavailable Unavail able Leia Moreno DO Unavailable Toro Arnold MD Unavailable [phone] Toro Arnold MD Unavailable [phone] Clarke Gandhi MD Unavailable [phone] Encounter Details Date Type Department Care Team (Late st Contact Info) Description 09/02/2017 MyC Medical Advice [address] [place] [address] Nichole Mccall, [place] Social History Tobacco Use Types Packs/Day Years Used Date Smoking Tobacco: Never Smokeless Tobacco: Never Alcohol Use Standard Drinks/Week Comments Yes 0 (1 standard drink = 0.6 oz pure alcohol) once per month- 5 times per year approx Comments No Sex and Gender Information Value Date Recorded Sex Assigned at Female 06/28/2018 5:01 AM HANDLE TURNER Legal Sex Female 3:40 AM HANDLE TURNER Gender Identity Female 05/25/2018 3:53 PM HANDLE TURNER Sexual Orientation Straight 04/24/2021 4: 48 PM HANDLE TURNER 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 Not on file documented as of this encounter Plan of Treatment Upcoming Encounters Date Type Department Care Team (Late st Contact Info) Description 04/21/2025 10:40 AM HANDLE TURNER Office Visit [facility] [address] [facility] [address] [place] [address] [place] [address] [place] [address] 200 [place] [address] documented as of this encounter Visit Diagnoses Not on filedocumented in this encounter Additional Health Concerns Infection Onset Date Last Indicated 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 02/05/2018 05/10/2024 9:57 AM HANDLE TURNER Rule Out COVID-19 10/30/2019 10/30/2019 10/31/2019 1:08 PM CDT Assessment Noted Time PHQ-9 Depression Total Score: 12 017 11:09 AM HANDLE TURNER documented as of this encounter Care Teams Sewer Tapper Relationship Specialty Start Date End Date Sweetie Burnett MD PCP - General Internal Medicine 07/03/16 11/05/20 Sweetie Burnett MD [address] [place] [address] PCP - Assigned PCP 02/15/17 08/17/18 [place] [address] [place] [address] PCP - General Family Medicine 11/06/20 12/29/22 Leia Moreno DO [address] [facility] [address] [place], [place] [phone] PCP - General Internal Medicine 12/30/22 Shabana Phelan NP [facility] [address] [place], [place] [address] Nurse Practitioner Nurse Practitioner Psych/Mental Health 04/10/17 Sweetie Burnett MD [address] [place] [address] Assigned PCP 02/15/17 09/08/20 Nikkie Jacques, [facility] [address] [place] [address] [address] [place] [address] Pharmacist Pharmacist 08/18/19 10/24/20 Nery Matos [facility] [address] [place] [address] Pharmacist Pharmacist 02/13/20 10/24/20 [place] [address] [facility] 300 [place], [place] [address] Assigned Musculoskeletal Provider 04/06/20 12/25/20 Miranda Liao MD INACTIVE IN [place] 05/14/2024 Assigned PCP 09/09/20 10/13/20 Vlad Walsh MD [address] [place] [address] Assigned PCP 10/14/20 11/07/20 [place] [address] [place] [address] Assigned PCP 11/08/20 03/13/23 David Chu PA-C [address] [facility] [address] [place] [address] Assigned Musculoskeletal Provider 12/28/20 05/11/21 Cb Hernández MD Assigned PCP 03/14/23 04/03/23 Cb Hernández MD Assigned PCP 04/11/23 04/17/23 Leia Moreno DO [address] [facility] 200 [place] [address] Assigned PCP 04/25/23 Toro Arnold MD [address] [place] [address] Surgeon Surgery 04/18/24 Toro Arnold MD [address] [place] [address] Assigned Surgical Provider 05/07/24 Clarke Gandhi MD [address] [facility] [address] [place] [address] Assigned Musculoskeletal Provider 08/07/24 documented as of this encounter
--- OUTSIDE RECORDS SUMMARY | 2025-04-05 22:10 | XMS_ITS | Encounter Summary ---
Author Organization [place] Address [address] [place] [address]. [place] [address] Care Team Providers Care Roof Tile Layer Name Role Phone TapanShabana Christelle HUERTA Unavailable [phone] Stewart Alfaro MD Unavailable [phone] Raquel Fields MD Primary Care Provider Raquel Fields MD Unavailable David Chu PA-C Unavailable Leia Moreno DO Primary Care Provide r Cb Hernández MD Unavailable Unavail able Cb Hernández MD Unavailable Unavail able Leia Moreno DO Unavailable Toro Arnold MD Unavailable Toro Arnold MD Unavailable [phone] Clarke Gandhi MD Unavailable [phone] Reason for Visit * Reason Onset Date Comments Medication Question 11/09/2020 Encounter Details Date Type Department Care Team (Late st Contact Info) Description 11/09/2020 [facility] [address] [place] [address] [place] [address] [place] [address] Medication Question Social History Tobacco Use Types Packs/Day Years Used Date Smoking Tobacco: Never Smokeless Tobacco: Never Alcohol Use Standard Drinks/Week Comments Yes 0 (1 standard drink = 0.6 oz pur e alcohol) rarely PHQ-2 Answer Date Recorded PHQ-2 Score 0 11/06/2020 Comments No Sex and Gender Information Value Date Recorded Sex Assigned at Female 06/28/2018 5:01 AM ELECTRICAL ASSEMBLER Legal Sex Female 3:40 AM ELECTRICAL ASSEMBLER Gender Identity Female 05/25/2018 3:53 PM ELECTRICAL ASSEMBLER Sexual Orientation Straight 04/24/2021 4: 48 PM ELECTRICAL ASSEMBLER 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 No / Unsure 11/06/2020 9:57 AM CDT documented as of this encounter Miscellaneous Notes * Telephone Encounter - Raquel Fields MD - 11/09/2020 2:10 PM CDT Spoke with patient Imitrex helping with headache but headache return back . Will start Topamax 1 tab daily , will recommend follow up in 1 month . Recommend to contact with any new symptoms . Raquel fields * Telephone Encounter - Floyd Celis RN - 11/09/2020 12:59 PM CDT Please see patient MyChart message and advise. Floyd Herrera RN documented in this encounter Plan of Treatment Upcoming Encounters Date Type Department Care Team (Late st Contact Info) Description 04/21/2025 10:40 AM ELECTRICAL ASSEMBLER Office Visit [facility] [address] [place] [phone] Leia Moreno DO [address] [place] [address] documented as of this encounter Visit Diagnoses Not on filedocumented in this encounter Additional Health Concerns Infection Onset Date Last Indicated 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 02/05/2018 05/10/2024 9:57 AM ELECTRICAL ASSEMBLER Assessment Noted Time PHQ-9 Depression Total Score: 2 11/07/19 11:11 AM CDT documented as of this encounter Care Teams Roof Tile Layer Relationship Specialty [place] [address] [place] [address] PCP - General Family Medicine 11/06/20 12/29/22 Leia Moreno DO [address] [facility] 200 [place] [address] PCP - General Internal Medicine 12/30/22 Shabana Phelan NP [address] [address] Nurse Practitioner Nurse Practitioner Psych/Mental Health 04/10/17 [place] [id number] [place] [address] Assigned Musculoskeletal Provider 04/06/20 12/25/20 [place] [address] [place] [address] Assigned PCP 11/08/20 03/13/23 David Chu PAAceC [id number] [place] [address] Assigned Musculoskeletal Provider 12/28/20 05/11/21 Cb Hernández MD Assigned PCP 03/14/23 04/03/23 Cb Hernández MD Assigned PCP 04/11/23 04/17/23 Leia Moreno DO [address] [place] [address] Assigned PCP 04/25/23 Toro Arnold MD [address] [place] [address] Surgeon Surgery 04/18/24 Toro Arnold MD [address] [place] [address] Assigned Surgical Provider 05/07/24 Clarke Gandhi MD [facility] [address] [place] [address] Assigned Musculoskeletal Provider 08/07/24 documented as of this encounter
--- OUTSIDE RECORDS SUMMARY | 2025-04-05 22:10 | XMS_ITS | Encounter Summary ---
Author Organization [place] Address [address] [place] [address] Care Team Providers Care Hand Tool Lapper Name Role Phone Sweetie Burnett MD Primary Care Provider [phone] [facility] Unavailable [phone] Sweetie Burnett MD Unavailable [phone] Nikkie Jacques [facility] Unavailable [phone] Nery Matos [facility] Unavailable Stewart Alfaro MD Unavailable Miranda Liao MD Unavailable Unavailable Raquel Hernandez MD Primary Care Provider [phone] Vlad Walsh MD Unavailable [phone] Raquel Hernandez MD Unavailable David Chu PA-C Unavailable Leia Moreno DO Primary Care Provide r Cb Hernández MD Unavailable Unavail able Cb Hernández MD Unavailable Unavail able Leia Moreno DO Unavailable Toro Arnold MD Unavailable [phone] Toro Arnold MD Unavailable [phone] Clarke Gandhi MD Unavailable [phone] Encounter Details Date Type Department Care Team (Late st Contact Info) Description 08/20/2020 MyC Medical Advice [facility] [address] [facility] [address] [place] [phone] 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 [address] [place] [phone] Leia Moreno DO [address] [place] [address] documented as of this encounter Visit Diagnoses Not on filedocumented in this encounter Additional Health Concerns Infection Onset Date Last Indicated 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 02/05/2018 05/10/2024 9:57 AM STUNT PERSON Assessment Noted Time PHQ-9 Depression Total Score: 3 09/07/19 20 9:37 AM CDT documented as of this encounter Care Teams Hand Tool Lapper Relationship Specialty Start Date End Date Sweetie Burnett MD PCP - General Internal Medicine 07/03/16 11/05/20 [place] [address] [place] [address] PCP - General Family Medicine 11/06/20 12/29/22 Leia Moreno DO [address] [place] [address] PCP - General Internal Medicine 12/30/22 Shabana Phelan NP [facility] [address] [place], [place] [address] Nurse Practitioner Nurse Practitioner Psych/Mental Health 04/10/17 Sweetie Burnett MD [address] [place] [address]393 Assigned PCP 02/15/17 09/08/20 Nikkie Jacques, [facility] [address] [facility] 812 [place], [place] [address] Pharmacist Pharmacist 08/18/19 10/24/20 Nrey Matos [facility] [address] [place] [address] Pharmacist Pharmacist 02/13/20 10/24/20 [place] [address] [facility] 300 [place] [address] Assigned Musculoskeletal Provider 04/06/20 12/25/20 Miranda Liao MD INACTIVE IN [place] 05/14/2024 Assigned PCP 09/09/20 10/13/20 Vlad Walsh MD [address] [place] [address] 629610 Assigned PCP 10/14/20 11/07/20 [place] [address] [place] [address] Assigned PCP 11/08/20 03/13/23 David Chu, PA-C [address] [facility] [address] [place] [address] Assigned Musculoskeletal Provider 12/28/20 05/11/21 Cb Hernández MD Assigned PCP 03/14/23 04/03/23 Cb Hernández MD Assigned PCP 04/11/23 04/17/23 Leia Moreno DO [address] [place] [address] Assigned PCP 04/25/23 Toro Arnold MD [address] [place] [address] Surgeon Surgery 04/18/24 Toro Arnold MD [address] [place] [address] Assigned Surgical Provider 05/07/24 Clarke Gandhi MD [address] [facility] [address] [place] [address] Assigned Musculoskeletal Provider 08/07/24 documented as of this encounter
--- OUTSIDE RECORDS SUMMARY | 2025-04-05 22:10 | XMS_ITS | Encounter Summary ---
Author Organization [place] Address [address] [place] [address] Care Team Providers Care Field Mechanic Name Role Phone Sweetie Burnett MD Primary Care Provider [phone] [facility] Un[facility] [phone] Nikkie Jacques [facility] Unavailable [phone] Nery Matos [facility] Unavailable Stewart Alfaro MD Unavailable [phone] Miranda Liao MD Unavailable Unavailable Raquel Hernandez MD Primary Care Provider [phone] Vlad Walsh MD Unavailable Raquel Hernandez MD Unavailable David Chu PA-C Unavailable Leia Moreno DO Primary Care Provide r Cb Hernández MD Unavailable Unavail able Cb Hernández MD Unavailable Unavail able Leia Moreno DO Unavailable [phone] Toro Arnold MD Unavailable [phone] Toro Arnold MD Unavailable [phone] Clarke Gandhi MD Unavailable [phone] Encounter Details Date Type Department Care Team (Late st Contact Info) Description 09/20/2020 [facility] [address] [place] [address] Nikkie Jacques, [facility] [address] [facility] 812 [place] [address] Social History Tobacco Use Types Packs/Day Years Used Date Smoking Tobacco: Never Smokeless Tobacco: Never Alcohol Use Standard Drinks/Week Comments Yes 0 (1 standard drink = 0.6 oz pur e alcohol) rarely PHQ-2 Answer Date Recorded PHQ-2 Score 0 10/26/2019 Comments No Sex and Gender Information Value Date Recorded Sex Assigned at Female 06/28/2018 5:01 AM FINISH REMOVER Legal Sex Female 3:40 AM FINISH REMOVER Gender Identity Female 05/25/2018 3:53 PM FINISH REMOVER Sexual Orientation Straight 04/24/2021 4: 48 PM FINISH REMOVER 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 Not on file Not on file documented as of this encounter Plan of Treatment Upcoming Encounters Date Type Department Care Team (Late st Contact Info) Description 04/21/2025 10:40 AM FINISH REMOVER Office Visit [address] [place] [address] [facility] [address] [place] [address] [address] [place] [address] documented as of this encounter Visit Diagnoses Not on filedocumented in this encounter Additional Health Concerns Infection Onset Date Last Indicated 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 02/05/2018 05/10/2024 9:57 AM FINISH REMOVER Assessment Noted Time PHQ-9 Depression Total Score: 3 09/07/19 20 9:37 AM CDT documented as of this encounter Care Teams Field Mechanic Relationship Specialty Start Date End Date Sweetie Burnett MD PCP - General Internal Medicine 07/03/16 11/05/20 [place] [address] [place] [address] PCP - General Family Medicine 11/06/20 12/29/22 Leia Moreno DO [address] [facility] 200 [place] [address] PCP - General Internal Medicine 12/30/22 Shabana Phelan DIESEL ENGINE ERECTOR [facility] [address] [place] [address] Nurse Practitioner Nurse Practitioner Psych/Mental Health 04/10/17 Nikkie Jacques, [facility] [address] [place] [address] 812 [place] [address] Pharmacist Pharmacist 08/18/19 10/24/20 Nery Matos [facility] 303 [place] [address] Pharmacist Pharmacist 02/13/20 10/24/20 [place] [address] [facility] 300 [place], [place] [address] Assigned Musculoskeletal Provider 04/06/20 12/25/20 Miranda Liao MD INACTIVE IN [place] 05/14/2024 Assigned PCP 09/09/20 10/13/20 Vlad Walsh MD [address] [place] [address] Assigned PCP 10/14/20 11/07/20 [place] [address] [place] [address] Assigned PCP 11/08/20 03/13/23 David Chu PA-C [address] [facility] [address] [place] [address] Assigned Musculoskeletal Provider 12/28/20 05/11/21 Cb Hernández MD Assigned PCP 03/14/23 04/03/23 Cb Hernández MD Assigned PCP 04/11/23 04/17/23 Leia Moreno DO [address] [place] [address] Assigned PCP 04/25/23 Toro Arnold MD [address] [place] [address] Surgeon Surgery 04/18/24 Toro Arnold MD [address] [place] [address] Assigned Surgical Provider 05/07/24 Clarke Gandhi MD [address] [place] [address] Assigned Musculoskeletal Provider 08/07/24 documented as of this encounter
--- OUTSIDE RECORDS SUMMARY | 2025-04-05 22:10 | XMS_ITS | Encounter Summary ---
Author Organization [place] Address [address] [place] [address] Care Team Providers Care Land Clearer Name Role Phone Sweetie Burnett MD Primary Care Provider [phone] TapanShabana casanova NP Unavailable Sweetie Burnett MD Unavailable [phone] Sweetie Burnett MD Unavailable [phone] Nikkie Jacques [facility] Unavailable [phone] Nery Matso [facility] Unavailable [phone] Stewart Alfaro MD Unavailable Miranda Liao MD Unavailable Unavailable Raquel Hernandez MD Primary Care Provider Vlad Walsh MD Unavailable [phone] Raquel Hernandez MD Unavailable David Chu PA-C Unavailable Leia Moreno DO Primary Care Provide r Cb Hernández MD Unavailable Unavail able Cb Hernández MD Unavailable Unavail able Leia Moreno DO Unavailable Toro Arnold MD Unavailable [phone] Toro Arnold MD Unavailable [phone] Clarke Gandhi MD Unavailable [phone] Encounter Details Date Type Department Care Team (Late st Contact Info) Description 02/23/2017 MyC Medical Advice [address] [place] [address] Azalia Collins CMA Social History Tobacco Use Types Packs/Day Years Used Date Smoking Tobacco: Never Smokeless Tobacco: Never Alcohol Use Standard Drinks/Week Comments Yes 0 (1 standard drink = 0.6 oz pure alcohol) once per month- 5 times per year approx Comments No Sex and Gender Information Value Date Recorded Sex Assigned at Female 06/28/2018 5:01 AM SECURITY STRATEGIST Legal Sex Female 3:40 AM SECURITY STRATEGIST Gender Identity Female 05/25/2018 3:53 PM SECURITY STRATEGIST Sexual Orientation Straight 04/24/2021 4: 48 PM SECURITY STRATEGIST 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 Not on file Not on file documented as of this encounter Plan of Treatment Upcoming Encounters Date Type Department Care Team (Late st Contact Info) Description 04/21/2025 10:40 AM SECURITY STRATEGIST Office Visit [facility] [address] [facility] [address] [place] [address] Leia Moreno DO [address] [facility] [address] [place] [address] documented as of this encounter Visit Diagnoses Not on filedocumented in this encounter Additional Health Concerns Infection Onset Date Last Indicated 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 02/05/2018 05/10/2024 9:57 AM SECURITY STRATEGIST Rule Out COVID-19 10/30/2019 10/30/2019 10/31/2019 1:08 PM CDT Assessment Noted Time PHQ-9 Depression Total Score: 17 017 10:57 AM CDT documented as of this encounter Care Teams Land Clearer Relationship Specialty Start Date End Date Sweetie Burnett MD PCP - General Internal Medicine 07/03/16 11/05/20 Sweetie Burnett MD [address] [place] [address] PCP - Assigned PCP 02/15/17 08/17/18 [place] [address] [place] [address] PCP - General Family Medicine 11/06/20 12/29/22 Leia Moreno DO [address] [facility] 200 [place], [place] [address] PCP - General Internal Medicine 12/30/22 Shabana Phelan NP [facility] [address] [place], [place] [address] Nurse Practitioner Nurse Practitioner Psych/Mental Health 04/10/17 Sweetie Burnett MD [address] [place] [address] Assigned PCP 02/15/17 09/08/20 Nikkie Jacques, [facility] [address] [place] [address] 812 [place] [address] Pharmacist Pharmacist 08/18/19 10/24/20 Nery Matos [facility] [address] [place] [address] Pharmacist Pharmacist 02/13/20 10/24/20 [place] [address] [facility] [address] [place], [place] [address] Assigned Musculoskeletal Provider 04/06/20 12/25/20 Miranda Liao MD INACTIVE IN [place] 05/14/2024 Assigned PCP 09/09/20 10/13/20 Vlad Walsh MD [address] [place] [address] Assigned PCP 10/14/20 11/07/20 [place] [address] [place] [address] Assigned PCP 11/08/20 03/13/23 David Chu, PAAceC [address] [facility] 300 [place] [address] Assigned Musculoskeletal Provider 12/28/20 05/11/21 Cb Hernández MD Assigned PCP 03/14/23 04/03/23 Cb Hernández MD Assigned PCP 04/11/23 04/17/23 Leia Moreno DO [address] [facility] 200 [place] [address] Assigned PCP 04/25/23 Toro Arnold MD [address] [place] [address] Surgeon Surgery 04/18/24 Toro Arnold MD [address] [place] [address] Assigned Surgical Provider 05/07/24 Clarke Gandhi MD [address] [facility] [address] [place] [address] Assigned Musculoskeletal Provider 08/07/24 documented as of this encounter
--- OUTSIDE RECORDS SUMMARY | 2025-04-05 22:10 | XMS_ITS | Encounter Summary ---
Author Organization [place] Address [address] [place] [address] Care Team Providers Care Staff Nuclear Weapons Officer Name Role Phone Sweetie Burnett MD Primary Care Provider [phone] [facility] Unavailable [phone] Sweetie Burnett MD Unavailable [phone] Nikkie Jacques [facility] Unavailable Nery Matos [facility] Unavailable Stewart Alfaro MD Unavailable Miranda Liao MD Unavailable Unavailable Raquel Hernandez MD Primary Care Provider [phone] Vlad Walsh MD Unavailable Raquel Hernandez MD Unavailable David Chu PA-C Unavailable Leia Moreno DO Primary Care Provide r Cb Hernández MD Unavailable Unavail able Cb Hernández MD Unavailable Unavail able Leia Moreno DO Unavailable [phone] Toro Arnold MD Unavailable [phone] Toro Arnold MD Unavailable [phone] Clarke Gandhi MD Unavailable [phone] Reason for Visit * Reason Comments Medication Refill Encounter Details Date Type Department Care Team (Late st Contact Info) Description 02/12/2020 Refill [facility] [address] [place] [phone] Sweetie Burnett MD [address] [place] [address] Medication Refill Social History Tobacco Use Types Packs/Day Years Used Date Smoking Tobacco: Never Smokeless Tobacco: Never Alcohol Use Standard Drinks/Week Comments Yes 0 (1 standard drink = 0.6 oz pur e alcohol) rarely PHQ-2 Answer Date Recorded PHQ-2 Score 0 10/26/2019 Comments No Sex and Gender Information Value Date Recorded Sex Assigned at Female 06/28/2018 5:01 AM SENIOR VISUAL DESIGNER Legal Sex Female 3:40 AM SENIOR VISUAL DESIGNER Gender Identity Female 05/25/2018 3:53 PM SENIOR VISUAL DESIGNER Sexual Orientation Straight 04/24/2021 4: 48 PM SENIOR VISUAL DESIGNER 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 No / Unsure 01/30/2020 8:39 AM CDT documented as of this encounter Miscellaneous Notes * Telephone Encounter - Geetha Duran RN - 02/13/2020 4:40 PM CDT Medication refilled per [facility] protocol Geetha Duran RN documented in this encounter Plan of Treatment Upcoming Encounters Date Type Department Care Team (Late Contact Info) Description 04/21/2025 10:40 AM SENIOR VISUAL DESIGNER Office Visit [facility] [address] [facility] [address] [place] [phone] Leia Moreno DO [address] [place], [place] [phone] documented as of this encounter Visit Diagnoses Diagnosis Hyperlipidemia LDL goal <130 Other and unspecified hyperlipidemia documented in this encounter Additional Health Concerns Infection Onset Date Last Indicated 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 02/05/2018 05/10/2024 9:57 AM SENIOR VISUAL DESIGNER Assessment Noted Time PHQ-9 Depression Total Score: 3 09/07/19 20 9:37 AM CDT documented as of this encounter Care Teams Staff Nuclear Weapons Officer Relationship Specialty Start Date End Date Sweetie Burnett MD PCP - General Internal Medicine 07/03/16 11/05/20 [place] [address] [place] [address] PCP - General Family Medicine 11/06/20 12/29/22 Leia Moreno DO [address] [facility] 200 [place] [address] PCP - General Internal Medicine 12/30/22 Shabana Phelan NP [facility] [address] [place] [address] Nurse Practitioner Nurse Practitioner Psych/Mental Health 04/10/17 Sweetie Burnett MD [address] [place] [address] Assigned PCP 02/15/17 09/08/20 Nikkie Jacques [facility] [address] [place] [address] 812 [place], [place] [address] Pharmacist Pharmacist 08/18/19 10/24/20 Nery Matos [facility] [address] [place] [address] Pharmacist Pharmacist 02/13/20 10/24/20 [place] [address] [facility] 300 [place] [address] Assigned Musculoskeletal Provider 04/06/20 12/25/20 Miranda Liao MD INACTIVE IN [place] 05/14/2024 Assigned PCP 09/09/20 10/13/20 Vlad Walsh MD [address] [place] [address] Assigned PCP 10/14/20 11/07/20 [place] [address] [place] [address] Assigned PCP 11/08/20 03/13/23 David Chu, PA-C [address] [address]17 Assigned Musculoskeletal Provider 12/28/20 05/11/21 Cb Hernández MD Assigned PCP 03/14/23 04/03/23 Cb Hernández MD Assigned PCP 04/11/23 04/17/23 Leia Moreno DO [address] [facility] 200 [place] [address] Assigned PCP 04/25/23 Toro Arnold MD [address] [place] [address] Surgeon Surgery 04/18/24 Toro Arnold MD [address] [place] [address] Assigned Surgical Provider 05/07/24 Clarke Gandhi MD [address] [place], [place] [address] [place] [address] Assigned Musculoskeletal Provider 08/07/24 documented as of this encounter
--- OUTSIDE RECORDS SUMMARY | 2025-04-05 22:10 | XMS_ITS | Encounter Summary ---
Author Organization [place] Address [address] [place] [address]. [place] [address] Care Team Providers Care Food Checkers And Cashiers Supervisor Name Role Phone Shabana Phelan [employer] ADMINISTRATOR Unavailable [phone] Leia Moreno DO Primary Care Provide r Leia Moreno DO Unavailable Toro Arnold MD Unavailable Toro Arnold MD Unavailable [phone] Clarke Gandhi MD Unavailable [phone] Reason for Visit * Reason Comments Medication Refill Encounter Details Date Type Department Care Team (Late st Contact Info) Description 03/18/2025 [place] [address] [facility] [address] [place] [phone] Leia Moreno DO [address] [facility] [address] [place], [place] [id number] Medication Refill Social History Tobacco Use Types [...] re latives? 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 [address] [facility] [address] [place] [phone] Leia Moreno DO [address] [facility] 200 [place] [address] documented as of this encounter Goals Goal Patient Goal Type Associated Problems Recent Progress Patient-Stated? Author MYC ECC SURG ENROLL Care Plan MyC ECC SURG ENROLL No Esthela Juan documented as of this encounter Visit Diagnoses Diagnosis Acquired hypothyroidism Unspecified hypothyroidism documented in this encounter Additional Health Concerns Active Problems Noted Date Diagnosed Date MyC ECC SURG ENROLL 04/29/2024 Assessment Noted Time PHQ-9 Depression Total Score: 7 06/06/20 24 3:14 PM CASE MANAGEMENT DIRECTOR documented as of this encounter Care Teams Food Checkers And Cashiers Supervisor Relationship Specialty Start Date End Date Leia Moreno DO [address] [place] [address] PCP - General Internal Medicine 12/30/22 Shabana Phelan NP [facility] [address] [place] [address] Nurse Practitioner Nurse Practitioner Psych/Mental Health 04/10/17 Leia Moreno DO [address] [place], [place] [address] Assigned PCP 04/25/23 Toro Arnold MD [address] [place] [address] Surgeon Surgery 04/18/24 Toro Arnold MD [address] [place] [address] Assigned Surgical Provider 05/07/24 Clarke Gandhi MD [address] [facility] [address] [place] [address] Assigned Musculoskeletal Provider 08/07/24 documented as of this encounter
--- OUTSIDE RECORDS SUMMARY | 2025-04-05 22:10 | XMS_ITS | Encounter Summary ---
Author Organization [place] Address [address] [place] [address] Care Team Providers Care Kitchen Runner Name Role Phone TapanShabana Christelle HUERTA Unavailable [phone] Raquel Hernandez MD Primary Care Provider [phone] Raquel Hernandez MD Unavailable Leia Moreno DO Primary Care Provide r Cb Hernández MD Unavailable Unavail able Cb Hernández MD Unavailable Unavail able Leia Moreno DO Unavailable Toro Arnold MD Unavailable Toro Arnold MD Unavailable [phone] Clarke Gandhi MD Unavailable [phone] Encounter Details Date Type Department Care Team (Late st Contact Info) Description 07/19/2021 [facility] [place] [facility] [address] [place] [phone] Nery Ma Social History Tobacco Use [...] often do you attend chur ch or advent services? More than 4 times per year 05/07/2021 Do you belong to any clubs o r organizations such as anabaptism groups, unions, fraternal or athletic groups, or [...] all 05/07/2021 PHQ-2 Answer Date Recorded PHQ-2 Total Score (Adult) - Positive if 3 or more points; Administer PHQ-9 if positive 0 07/19/2021 [facility] - Occupational Stress Questionnaire Answer Date [...] place to sleep or slept in a half-way (including now)? 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 Not on file documented as of this encounter Plan of Treatment Upcoming Encounters Date Type Department Care Team (Late st Contact Info) Description 04/21/2025 10:40 AM GLASS CUT OFF TENDER Office Visit [address] [place] [phone] Leia Moreno, DO [address] [facility] [address] [place] [address] documented as of this encounter Visit Diagnoses Not on filedocumented in this encounter Additional Health Concerns Infection Onset Date Last Indicated 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 02/05/2018 05/10/2024 9:57 AM GLASS CUT OFF TENDER Assessment Noted Time PHQ-9 Depression Total Score: 3 07/20/19 22 7:02 AM GLASS CUT OFF TENDER documented as of this encounter Care Teams Kitchen Runner Relationship Specialty [place] [address] [place] [address] PCP - General Family Medicine 11/06/20 12/29/22 Leia Moreno DO [address] [facility] [address] [place] [address] PCP - General Internal Medicine 12/30/22 Shabana Phelan QUALITY CONTROLLER [facility] [address] [place] [address] Nurse Practitioner Nurse Practitioner Psych/Mental Health 04/10/17 [place] [address] [place] [address] Assigned PCP 11/08/20 03/13/23 Cb Hernández MD Assigned PCP 03/14/23 04/03/23 Cb Hernández MD Assigned PCP 04/11/23 04/17/23 Leia Moreno DO [address] [facility] [address] [place] [address] Assigned PCP 04/25/23 Toro Arnold MD [address] [place] [address] Surgeon Surgery 04/18/24 Toro Arnold MD [address] [place] [address] Assigned Surgical Provider 05/07/24 Clarke Gandhi MD [facility] [facility] [address] [place] [address] Assigned Musculoskeletal Provider 08/07/24 documented as of this encounter
--- OUTSIDE RECORDS SUMMARY | 2025-04-05 22:10 | XMS_ITS | Encounter Summary ---
Author Organization [facility] Address [address] [place] [address]. [place] [address] Care Team Providers Care Class A Regional Drivers Name Role Phone Tapan Shabana Bourgeois NP Unavailable [phone] Stewart Alfaro MD Unavailable Raquel Hernandez MD Primary Care Provider [phone] Raquel Hernandez MD Unavailable David Chu PA-C Unavailable Leia Moreno DO Primary Care Provide r Cb Hernández MD Unavailable Unavail able Cb Hernández MD Unavailable Unavail able Leia Moreno DO Unavailable [phone] Toro Arnold MD Unavailable Toro Arnold MD Unavailable Clarke Gandhi MD Unavailable [phone] Reason for Referral * Consultation (Routine) - Closed Specialty Diagnoses / Procedures Referred By Contjuan c t Referred To Contact Diagnoses Episodic tension-type [place], [place] [address] [place] [address] Phone: tel: fax: [facility] [address] [facility] [address] [place] [address] Phone: tel: fax: Referral ID Status Reason Start Date Expiration Date Visits Re quested Visits Authorized [id number] Closed 11/19/2020 11/19/2021 1 1 Comments Your provider has referred you for the following: Consult at [facility]: [facility] [email or web address] Please be aware that coverage of these services is subject to the terms and limitations of your health insurance plan. Call member services at your health plan with any benefit or coverage questions. Please bring the following with you to your appointment: (1) Any X-Rays, CTs or MRIs which have been performed. Contact the facility where they were done to arrange for machine operator picker prior to your scheduled appointment. (2) List of current medications (3) This referral request (4) Any documents/labs given to you for this referral Reason for Visit * Reason Onset Date Comments Headache 11/19/2020 Encounter Details Date Type Department Care Team (Late st Contact Info) Description 11/19/2020 [facility] [place] Medical Advice [facility] [address] [place] [phone] [place] [id number] [place] [address] Headache Social History Tobacco Use Types Packs/Day Years Used Date Smoking Tobacco: Never Smokeless Tobacco: Never Alcohol Use Standard Drinks/Week Comments Yes 0 (1 standard drink = 0.6 oz pur e alcohol) rarely PHQ-2 Answer Date Recorded PHQ-2 Score 0 11/06/2020 Comments No Sex and Gender Information Value Date Recorded Sex Assigned at Female 06/28/2018 5:01 AM PHP SOFTWARE ENGINEER Legal Sex Female 3:40 AM PHP SOFTWARE ENGINEER Gender Identity Female 05/25/2018 3:53 PM PHP SOFTWARE ENGINEER Sexual Orientation Straight 04/24/2021 4: 48 PM PHP SOFTWARE ENGINEER 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 No / Unsure 11/06/2020 9:57 AM CDT documented as of this encounter Miscellaneous Notes * Telephone Encounter - Raquel Hernandez MD - 11/19/2020 11:13 AM CDT Thanks for your message . I did put a consultation for neurology . If you think Topamax is helping we can increase the dose to 100 mg or we can wait for consultation from neurology . Thanks Raquel Hernandez * Telephone Encounter - Shante Acevedo RN - 11/19/2020 10:36 AM CDT Please see [id number] message and advise. Shante Acevedo RN documented in this encounter Plan of Treatment Upcoming Encounters Date Type Department Care Team (Late st Contact Info) Description 04/21/2025 10:40 AM PHP SOFTWARE ENGINEER Office Visit [facility] [address] [facility] [address] [place] [phone] Leia Moreno, [address] [facility] [address] [place] [address] Scheduled Referrals Name Type Priority Associated Diagnoses Orde r Schedule NEUROLOGY ADULT REFERRAL Referral Routine Episodic tension-type headache, not intractable Expected: 11/26/2020 (Approximate), Expires: 11/19/2021 documented as of this encounter Visit Diagnoses Diagnosis Episodic tension-type headache, not intractable- Primary Episodic tension type headache documented in this encounter Additional Health Concerns Infection Onset Date Last Indicated 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 02/05/2018 05/10/2024 9:57 AM PHP SOFTWARE ENGINEER Assessment Noted Time PHQ-9 Depression Total Score: 2 11/07/19 21 11:11 AM CDT documented as of this encounter Care Teams Class A Regional Drivers Relationship Specialty [place] [address] [place] [address] PCP - General Family Medicine 11/06/20 12/29/22 Leia Moreno DO [address] [place] [address] PCP - General Internal Medicine 12/30/22 Shabana Phelan DRY WALL SPRAYER [facility] [address] [place] [address] Nurse Practitioner Nurse Practitioner Psych/Mental Health 04/10/17 [place] [address] [address] Assigned Musculoskeletal Provider 04/06/20 12/25/20 [place] [address] [place] [address] Assigned PCP 11/08/20 03/13/23 David Chu, PA-C [address] [address] Assigned Musculoskeletal Provider 12/28/20 05/11/21 Cb Hernández MD Assigned PCP 03/14/23 04/03/23 Cb Hernández MD Assigned PCP 04/11/23 04/17/23 Leia Moreno DO [address] [place] [address] Assigned PCP 04/25/23 Toro Arnold MD [address] [place] [address] Surgeon Surgery 04/18/24 Toro Arnold MD [address] [place] [address] Assigned Surgical Provider 05/07/24 Clarke Gandhi MD [address] [facility] [address] [place] [address] Assigned Musculoskeletal Provider 08/07/24 documented as of this encounter
--- OUTSIDE RECORDS SUMMARY | 2025-04-05 22:10 | XMS_ITS | Encounter Summary ---
Author Organization [facility] Address [address] [place] [address]. [place] [address] Care Team Providers Care Electrophysiology Scientist Name Role Phone Shabana Phelan AREA SALES MANAGER Unavailable [phone] Leia Moreno DO Primary Care Provide r Leia Moreno DO Unavailable Toro Arnold MD Unavailable [phone] Toro Arnold MD Unavailable [phone] Clarke Gandhi MD Unavailable [phone] Reason for Visit * Reason Onset Date Comments RED FLAG 07/05/2024 Encounter Details Date Type Department Care Team (Late st Contact Info) Description 07/05/2024 Telephone [facility] [address] 4[address] [place] [address] Orthopedics-[facility], [facility] RED FLAG Social History Tobacco Use Types Packs/Day Years [...] re latives? Twice a week 04/12/2024 Attends Taoist Services Not on file 04/12 Active Member [...] Answer Date Recorded PHQ-2 Score 0 06/06/2024 [facility] - Occupational Stress [...] Date Recorded Do you have housing? 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 Per Dr. Gonzalez: Richard Gonzalez MD Kellner, Beth, LPN The read of this MRI is that there is no sign of tumor here. Sometimes if patients have a lipoma itmay not be visible on the MRI. If the patient has a distinct mass that they want excised then she will need to be examined Rn Bariatric spoke with patient. She states that she is wanting to get clearance to have a revision of her breast reconstruction done. 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 She first noticed it when hanging up some cabinets. She said the mass was felt like a spasm that lasted for 15 minutes. Rn Bariatric recommended an in person examination and she was scheduled with Dr. Gandhi for Thursday. Emily Duarte LPN RONMENTAL ENGINEERING ASSISTANT * Telephone Encounter - Emily Duarte LPN - 07/11/2024 11:49 AM CST Rn Bariatric spoke with patient and we got her scheduled for a MRI on 07/14. Patient was asked to call insurance to be sure they will cover the MRI. If she runs into any problems, she will call me back and we will problem solve from there. Once image is complete, I will have it triaged again. Emily Duarte LPN RONMENTAL ENGINEERING ASSISTANT * Telephone Encounter - Emily Duarte LPN - 07/08/2024 4:23 PM CST Triaged with Dr. Gonzalez who states this patient should get a MRI of abdomen where the lump is withand without contrast to determine if she should see us or where she should be seen. Emily Duarte LPN RONMENTAL ENGINEERING ASSISTANT * Telephone Encounter - Amina Haynes - 07/05/2024 4:11 PM CSTSummary: RED FLAG TUMOR NEEDS VISIT Other: Patient has a referral for Left upper quadrant abdominal mass (left abdominal wall bulge, nohernia seen during surgery, ?msk issue). CT scan on October [facility]. Please call patient to schedule. Could we send this information to you in DepoMedt or would you prefer to receive a phone call?: Patient would prefer a phone call Okay to leave a detailed message?: Yes at Cell number on file: Telephone Information: RONMENTAL ENGINEERING ASSISTANT documented in this encounter Plan of Treatment Upcoming Encounters Date Type Department Care Team (Late st Contact Info) Description 04/21/2025 10:40 AM ENVIRONMENTAL ENGINEERING ASSISTANT Office Visit [facility] [address] [place] [address] Leia Moreno DO [address] [place], [place] [id number] documented as of this encounter Goals Goal [...] Total Score: 7 06/06/20 24 3:14 PM ENVIRONMENTAL ENGINEERING ASSISTANT documented as of this encounter Care Teams Electrophysiology Scientist Relationship Specialty Start Date End Date Leia Moreno DO [address] [place] [address] PCP - General Internal Medicine 12/30/22 Shabana Phelan NP [facility] [address] [place] [address] Nurse Practitioner Nurse Practitioner Psych/Mental Health 04/10/17 Leia Moreno DO [address] [place] [address] Assigned PCP 04/25/23 Toro Arnold MD [address] [place] [address] Surgeon Surgery 04/18/24 Toro Arnold MD [address] [place] [address] Assigned Surgical Provider 05/07/24 Clarke Gandhi MD [address] [place] [address] [place] [address] Assigned Musculoskeletal Provider 08/07/24 documented as of this encounter
--- OUTSIDE RECORDS SUMMARY | 2025-04-05 22:11 | XMS_ITS | Encounter Summary ---
Author Organization [facility] Address [address] [place] [address] Care Team Providers Care Squeegeer And Former Name Role Phone Sweetie Burnett MD Primary Care Provider [phone] TapanShabana casanova NP Unavailable [phone] Sweetie Burnett MD Unavailable [phone] Sweetie Burnett MD Unavailable [phone] Nikkie Jacques [facility] Unavailable [phone] Nery Matos [facility] Unavailable [phone] Stewart Alfaro MD Unavailable Miranda Liao MD Unavailable Unavailable Raquel Hernandez MD Primary Care Provider [phone] Vlad Walsh MD Unavailable Raquel Hernandez MD Unavailable aDvid Chu PA-C Unavailable Leia Moreno DO Primary Care Provide r Cb Hernández MD Unavailable Unavail able Cb Hernández MD Unavailable Unavail able Leia Moreno DO Unavailable Toro Arnold MD Unavailable [phone] Toro Arnold MD Unavailable [phone] Clarke Gandhi MD Unavailable [phone] Encounter Details Date Type Department Care Team (Late st Contact Info) Description 12/03/2017 [facility] Medical Advice [address] [place] [phone] Margareth Garibay, RN Social History Tobacco Use Types Packs/Day Years Used Date Smoking Tobacco: Never Smokeless Tobacco: Never Alcohol Use Standard Drinks/Week Comments Yes 0 (1 standard drink = 0.6 oz pure alcohol) once per month- 5 times per year approx Comments No Sex and Gender Information Value Date Recorded Sex Assigned at Female 06/28/2018 5:01 AM PROFESSOR OF ASTRONOMY Legal Sex Female 3:40 AM PROFESSOR OF ASTRONOMY Gender Identity Female 05/25/2018 3:53 PM PROFESSOR OF ASTRONOMY Sexual Orientation Straight 04/24/2021 4: 48 PM PROFESSOR OF ASTRONOMY 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 Not on file documented as of this encounter Plan of Treatment Upcoming Encounters Date Type Department Care Team (Late st Contact Info) Description 04/21/2025 10:40 AM PROFESSOR OF ASTRONOMY Office Visit [facility] [address] [facility] [address] [place] [address] Leia Moreno DO [address] [place] [address] [address] [place] [address] documented as of this encounter Visit Diagnoses Not on filedocumented in this encounter Additional Health Concerns Infection Onset Date Last Indicated 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 02/05/2018 05/10/2024 9:57 AM PROFESSOR OF ASTRONOMY Rule Out COVID-19 10/30/2019 10/30/2019 10/31/2019 1:08 PM CDT Assessment Noted Time PHQ-9 Depression Total Score: 12 017 11:09 AM PROFESSOR OF ASTRONOMY documented as of this encounter Care Teams Squeegeer And Former Relationship Specialty Start Date End Date Sweetie Burnett MD PCP - General Internal Medicine 07/03/16 11/05/20 Sweetie Burnett MD [address] [place] [address] PCP - Assigned PCP 02/15/17 08/17/18 [place] [address] [place] [address] PCP - General Family Medicine 11/06/20 12/29/22 Leia Moreno DO [address] [facility] [address] [place], [place] [address] PCP - General Internal Medicine 12/30/22 Shabana Phelan NP [facility] [address] [place], [place] [address] Nurse Practitioner Nurse Practitioner Psych/Mental Health 04/10/17 Sweetie Burnett MD [address] [place] [address] Assigned PCP 02/15/17 09/08/20 Nikkie Jacques, [facility] [address] [place] [address] [address] [place] [address] Pharmacist Pharmacist 08/18/19 10/24/20 Nery Matos [facility] [address] [place] [address] Pharmacist Pharmacist 02/13/20 10/24/20 [place] [address] [facility] [address] [place], [place] [address] Assigned Musculoskeletal Provider 04/06/20 12/25/20 Miranda Liao MD [facility] [place] 05/14/2024 Assigned PCP 09/09/20 10/13/20 Vlad Walsh MD [address] [place] [address] Assigned PCP 10/14/20 11/07/20 [place] [address] [place] [address] Assigned PCP 11/08/20 03/13/23 David Chu PA-C [address] [facility] [address] [place] [address] Assigned Musculoskeletal Provider 12/28/20 05/11/21 Cb Hernández MD Assigned PCP 03/14/23 04/03/23 Cb Hernández MD Assigned PCP 04/11/23 04/17/23 Leia Moreno DO [address] [facility] [address] [place] [address] Assigned PCP 04/25/23 Toro Arnold MD [address] [place] [address] Surgeon Surgery 04/18/24 Toro Arnold MD [address] [place] [address] Assigned Surgical Provider 05/07/24 Clarke Gandhi MD [address] [facility] [address] [place] [address] Assigned Musculoskeletal Provider 08/07/24 documented as of this encounter
--- OUTSIDE RECORDS SUMMARY | 2025-04-05 22:11 | XMS_ITS | Encounter Summary ---
Author Organization [facility] Address [address] [place] [address]. [place] [address] Care Team Providers Care Metal Annealer Name Role Phone TapanShabana Christelle HUERTA Unavailable [phone] Raquel Hernandez MD Primary Care Provider Raquel Hernandez MD Unavailable Leia Moreno DO Primary Care Provide r Cb Hernández MD Unavailable Unavail able Cb Hernández MD Unavailable Unavail able Leia Moreno DO Unavailable Toro Arnold MD Unavailable Toro Arnold MD Unavailable Clarke Gandhi MD Unavailable [phone] Encounter Details Date Type Department Care Team (Late st Contact Info) Description 12/27/2021 [facility] Medical Advice Initial Department Manny Yates [...] week 05/07/2021 How often do you attend [facility] or jewish services? 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 No / Unsure 12/27/2021 3:14 PM CDT documented as of this encounter Plan of Treatment Upcoming Encounters Date Type Department Care Team (Late st Contact Info) Description 04/21/2025 10:40 AM DRYWALL APPLICATION SUPERVISOR Office Visit [address] [place] [phone] Leia Moreno [address] [place] [address] documented as of this encounter Visit Diagnoses Not on filedocumented in this encounter Additional Health Concerns Infection Onset Date Last Indicated 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 02/05/2018 05/10/2024 9:57 AM DRYWALL APPLICATION SUPERVISOR Assessment Noted Time PHQ-9 Depression Total Score: 6 12/28/19 22 3:16 PM CDT documented as of this encounter Care Teams Metal Annealer Relationship Specialty [place] [address] [place] [address] PCP - General Family Medicine 11/06/20 12/29/22 Leia Moreno DO [address] [place] [address] PCP - General Internal Medicine 12/30/22 Shabana Phelan NP [facility] [address] [place] [address] Nurse Practitioner Nurse Practitioner Psych/Mental Health 04/10/17 [place] [address] [place] [address] Assigned PCP 11/08/20 03/13/23 Cb Hernández MD Assigned PCP 03/14/23 04/03/23 Cb Hernández MD Assigned PCP 04/11/23 04/17/23 Leia Moreno DO [address] [facility] [address] [place] [address] Assigned PCP 04/25/23 Toro Arnold MD [address] [place] [address] Surgeon Surgery 04/18/24 Toro Arnold MD [address] [place] [address] Assigned Surgical Provider 05/07/24 Clarke Gandhi MD [address] [place] [address] Assigned Musculoskeletal Provider 08/07/24 documented as of this encounter
--- OUTSIDE RECORDS SUMMARY | 2025-04-05 22:11 | XMS_ITS | Encounter Summary ---
Author Organization [facility] Address [address] [place] [address] Care Team Providers Care Gas Plant Operator Name Role Phone TapanShabana Christelle HUERTA Unavailable [phone] Raquel Hernandez MD Primary Care Provider [phone] Raquel Hernandez MD Unavailable Leia Moreno DO Primary Care Provide r Cb Hernández MD Unavailable Unavail able Cb Hernández MD Unavailable Unavail able Leia Moreno DO Unavailable [phone] Toro Arnold MD Unavailable Toro Arnold MD Unavailable [phone] Clarke Gandhi MD Unavailable [phone] Encounter Details Date Type Department Care Team (Late st Contact Info) Description 12/17/2021 Orders Only [facility] Centralized Scheduling [facility] [place] [address] Bhanu Mckeon MD [address] [place], [place] [id number] Encounter for laboratory testing for COVID-19 virus Social History Tobacco Use Types Packs/Day Years [...] How often do you attend chur or judaism services? 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 Results will be returned via unsolicited result 01/02/2022 10:17 PM CDT [facility] Comment:NEGATIVE: SARS-CoV-2 (COVID-19) RNA not detected, presumed negative. Swab NASAL STRUCTURE / Unknown Non-blood Collection / Unknown 01/02/2022 1:55 PM CDT 01/02/2022 1:58 PM CDT Narrative [facility] - 01/02/2022 10:17 PM CDT Testing was performed using the Aptima SARS-CoV-2 Assay on the [employer] Instrument System. Additional information about this Emergency Use Authorization (EUA) assay can be found via the Lab Guide. This test should be ordered for the detection of SARS-CoV-2 in individuals who meet SARS-CoV-2 clinical and/or epidemiological criteria. Test performance is unknown in asymptomatic patients. This test is for in vitro diagnostic use under the FDA EUA for laboratories certified under CLIA to perform high complexity testing. This test has not been FDA cleared or approved. A negative result does not rule out the presence of PCR inhibitors in the specimen or target RNA in concentration below the limit of detection for the assay. The possibility of a false negative should be considered if the patient's recent exposure or clinical presentation suggests COVID-19. This test was validated by the [facility]. This laboratory is certified under the Clinical Laboratory Improvement Amendments of 1988 (CLIA-88) as qualified to perform high complexity laboratory testing. Bhanu Mckeon MD LAB - MICRO GENERAL ORDERABLES F inal Result [facility] Inf. Diseases Diag. Lab [address] [facility] [place] [address], [facility] [phone] documented in this encounter Visit Diagnoses Diagnosis Encounter for laboratory testing for COVID-19 virus documented in this encounter Additional Health Concerns Infection Onset Date Last Indicated 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 02/05/2018 05/10/2024 9:57 AM CLINICAL NURSING ASSISTANT Assessment Noted Time PHQ-9 Depression Total Score: 3 07/20/19 22 7:02 AM CLINICAL NURSING ASSISTANT documented as of this encounter Care Teams Gas Plant Operator Relationship Specialty [place] [address] [place] [address] PCP - General Family Medicine 11/06/20 12/29/22 Leia Moreno DO [address] [facility] [address] [place] [address] PCP - General Internal Medicine 12/30/22 Shabana Phelan NP [facility] [address] [place] [address] Nurse Practitioner Nurse Practitioner Psych/Mental Health 04/10/17 [place] [address] [place] [address] Assigned PCP 11/08/20 03/13/23 Cb Hernández MD Assigned PCP 03/14/23 04/03/23 Cb Hernández MD Assigned PCP 04/11/23 04/17/23 Leia Moreno DO [address] [facility] [address] [place] [address] Assigned PCP 04/25/23 Toro Arnold MD [address] [place] [address] Surgeon Surgery 04/18/24 Toro Arnold MD [address] [place] [address] Assigned Surgical Provider 05/07/24 Clarke Gandhi MD [facility] [place], [place] [address] [place] [address] Assigned Musculoskeletal Provider 08/07/24 documented as of this encounter
--- OUTSIDE RECORDS SUMMARY | 2025-04-05 22:11 | XMS_ITS | Encounter Summary ---
Author Organization [facility] Address [address] [place] [address] Care Team Providers Care Stress Engineer Name Role Phone Samm Ramos MD Primary Care Provider Sweetie Burnett MD Primary Care Provider TapanShabana casanova NP Unavailable [phone] Sweetie Burnett MD Unavailable [phone] Sweetie Burnett MD Unavailable [phone] Nikkie Jacques [facility] Unavailable [phone] [facility] Unavailable Stewart Alfaro MD Unavailable Miranda Liao MD Unavailable Unavailable Raquel Hernandez MD Primary Care Provider Vlad Walsh MD Unavailable [phone] Raquel Hernandez MD Unavailable David Chu PA-C Unavailable Leia Moreno DO Primary Care Provide r Cb Hernández MD Unavailable Unavail able Cb Hernández MD Unavailable Unavail able Leia Moreno DO Unavailable Toro Arnold MD Unavailable [phone] Toro Arnold MD Unavailable [phone] Clarke Gandhi MD Unavailable [phone] Reason for Referral * Referral not Required - Closed Specialty Diagnoses / Procedures Referred By Kelly t Referred To Contact Diagnoses Hip pain Ingrid Sanchez PA-C [address] [facility] [address] [place] [address] Phone: tel: fax: [facility]HEUMAT[facility]Y CON [address] [place] [id number] Phone: tel: Referral ID Status Reason Start Date Expiration Date Visits Re quested Visits Authorized [id number] Closed 06/02/2010 06/02/2010 1 1 Comments Your provider has referred you to: Arthritis/Rheumatology Referral Management Liaison [phone] Please be aware that coverage of these services is subject to the terms and limitations of your health insurance plan. Call member services at your health plan with any benefit or coverage questions. Please bring the following to your appointment: >> Any x-rays, CTs or MRIs which have been performed. Contact the facility where they were done to arrange for brain picker prior to your scheduled appointment. Any new CT, MRI or other procedures ordered by your specialist must be performed at a [facility] facility or coordinated by your clinic's referral office. >> List of current medications >> This referral request >> Any documents/labs given to you for this referral TANNER Encounter Details Date Type Department Care Team (Late st Contact Info) Description 10/16/2009 [facility] Medical Advice [address] [phone] Ingrid Sanchez PA-C [address] [facility] [address] [place] [id number] Hip Pain (Primary Dx) Social History Tobacco Use Types Packs/Day Years Used Date Smoking Tobacco: Never Alcohol Use Standard Drinks/Week Comments Yes 0 (1 standard drink = 0.6 oz pur e alcohol) rare Comments No Sex and Gender Information Value Date Recorded Sex Assigned at Female 06/28/2018 5:01 AM FUR TANNER Legal Sex Female 3:40 AM FUR TANNER Gender Identity Female 05/25/2018 3:53 PM FUR TANNER Sexual Orientation Straight 04/24/2021 4: 48 PM FUR TANNER documented as of this encounter Plan of Treatment Upcoming Encounters Date Type Department Care Team (Late st Contact Info) Description 04/21/2025 10:40 AM FUR TANNER Office Visit [facility] [address] [place] [address] Paytonteena Leia Lena DO [address] [place] [address] Scheduled Referrals Name Type Priority Associated Diagnoses Orde r Schedule RHEUMATOLOGY REFERRAL Referral Routine Hip Pain Ordered: 06/02/2010 documented as of this encounter Visit Diagnoses Diagnosis Hip pain- Primary Pain in joint, pelvic region and thigh documented in this encounter Additional Health Concerns Infection Onset Date Last Indicated 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 02/05/2018 05/10/2024 9:57 AM FUR TANNER Rule Out COVID-19 10/30/2019 10/30/2019 10/31/2019 1:08 PM CDT documented as of this encounter Care Teams Stress Engineer Relationship Specialty Start Date End Date Samm Ramos MD XXX RESIGNED XXX [address] [employer] [address] [place] [phone] PCP - General 07/31/01 07/02/16 Sweetie Burnett MD XXX RESIGNED XXX [address] [place] [phone] PCP - General Internal Medicine 07/03/16 11/05/20 Sweetie Burnett MD [facility] [address] [place] [address] PCP - Assigned PCP 02/15/17 08/17/18 [place] [address] [place] [address] PCP - General Family Medicine 11/06/20 12/29/22 Leia Moreno DO [address] [facility] [address] [place], [place] [phone] PCP - General Internal Medicine 12/30/22 Shabana Phelan NP [facility] [address] [place], [place] [address] Nurse Practitioner Nurse Practitioner Psych/Mental Health 04/10/17 Sweetie Burnett MD [address] [address] Assigned PCP 02/15/17 09/08/20 Nikkie Jacques, [facility] [address] [place] [address] [address] [place], [place] [address] Pharmacist Pharmacist 08/18/19 10/24/20 Nery Matos RPH [address] [place], [place] [address] Pharmacist Pharmacist 02/13/20 10/24/20 [place] [address] [facility] [address] [place], [place] [phone] Assigned Musculoskeletal Provider 04/06/20 12/25/20 Miranda Liao MD INACTIVE IN MD 05/14/2024 Assigned PCP 09/09/20 10/13/20 Vlad Walsh MD [address] [place] [address] Assigned PCP 10/14/20 11/07/20 [place] [address] [place] [address] Assigned PCP 11/08/20 03/13/23 David Chu, PA-C [address] [facility] [address] [place] [address] Assigned Musculoskeletal Provider 12/28/20 05/11/21 Cb Hernández MD Assigned PCP 03/14/23 04/03/23 Cb Hernández MD Assigned PCP 04/11/23 04/17/23 Leia Moreno DO [address] [place] [address] Assigned PCP 04/25/23 Toro Arnold MD [address] [place] [address] Surgeon Surgery 04/18/24 Toro Arnold MD [address] [place] [address] Assigned Surgical Provider 05/07/24 Clarke Gandhi MD [address] [place] [address] Assigned Musculoskeletal Provider 08/07/24 documented as of this encounter
[2025-04-06] MEDS: ONDANSETRON ODT 4 MG TAB PO (00:23)
[2025-04-06] MEDS: CYCLOBENZAPRINE HCL 10 MG TABLET 5 MG PO (00:23)
[2025-04-06] MEDS: LACTATED RINGERS 500 ML 500 ML 125 ML IV (03:45)
[2025-04-06] MEDS: OxyCODONE/APAP 5-325 TABLET PO (07:54)
[2025-04-06 08:03] VITALS: BP 95/63; PULSE 98; RESP 14; O2SAT 98
[2025-04-06 11:39] VITALS: BP 111/73; PULSE 81; RESP 16; O2SAT 98
== END 2025-04-06 11:49 | disposition other institution (70) ==
PROVIDERS: Emergency Provider Family Medicine; PCP Pediatrics
DX: S32.019A Unspecified fracture of first lumbar vertebra, initial encounter for closed fracture (principal); X50.1XXA Overexertion from prolonged static or awkward postures, initial encounter; Y99.0 Civilian activity done for income or pay
CPT/HCPCS: 72131; 72192; 96374; 96375; 96376; 99283; 99285; A9270; J1171; J1885; J2405; J3360; J7120